=== PATIENT | female | born 1995 | race Caucasian/White ===

== ENCOUNTER 2018-03-22 09:21 | Emergency (ER) | payer MEDICAID, SELFPAY ==
[2018-03-22 09:22] VITALS: BP 142/78; PULSE 99; RESP 20; TEMP 36.4; O2SAT 100; BMI 38.0
--- NOTE | 2018-03-22 09:46 | EKG12_ITS ---
Test Reason : CHEST OTHER Blood Pressure : / mmHG Vent. Rate : 096 BPM Atrial Rate : 096 BPM P-R Int : 138 ms QRS Dur : 088 ms QT Int : 354 ms P-R-T Axes : 038 046 043 degrees QTc Int : 447 ms Normal sinus rhythm Normal ECG Confirmed by BECCA ARTHUR MD ([id number]), staff editor ELROY MORALES ([id number]) on 03/24/2018 4:03:22 PM Referred By: GENESIS Confirmed By:BECCA ARTHUR MD
--- NOTE | 2018-03-22 09:46 | RAD_ITS ---
STUDY: X-RAY CHEST REASON FOR EXAM: Female, 22 years old. Sharp onset of left-sided chest pain with deep breathing. TECHNIQUE: PA and lateral views of the chest. COMPARISON: None. FINDINGS: Mild elevation of the right hemidiaphragm. There is no demonstrated pleural abnormality. Normal size heart. Normal mediastinum and anay. Normal visualized pulmonary arteries. Normal visualized aortic arch and descending thoracic aorta. Normal visualized thoracic spine. Normal visualized ribs, clavicles, and shoulders. There is no demonstrated abnormality of the visualized soft tissue structures of the upper abdomen. RAD/Chest PA and Lateral IMPRESSION: Normal x-ray examination of the chest. Electronically Signed: Royal Clemens MD at 11:24 EST Tel [phone], Service support ,
--- NOTE | 2018-03-22 10:48 | ED.VISSUMM ---
- ER Visit Summary Date of Service: 03/22/18 Chief Complaint: Chest pain History of Present Illness: The patient is a 22 F who states she has had a left lower anterior chest wall pain for the past week and a half. She states that sharp and stabbing. It is worse with deep inspiration. When she breathes shallow she does not have any pain. She states that now it has started to hurt over the upper anterior chest. She denies any cough. No fevers. No rashes. She has a history of fibromyalgia, pseudotumor cerebri, and rheumatoid arthritis. She is on methotrexate and Humira. Physical Examination: Afebrile vital signs are stable Gen: Well-nourished well-developed Head: Normocephalic atraumatic Eyes: Perrl EOMI ENT: TMs clear no rhinorrhea moist mucous membranes Neck: Supple no lymphadenopathy no JVD nontender CVS: Regular rate rhythm no murmurs normal S1-S2 Respiratory: No distress clear to auscultation bilaterally left anterior lower chest wall is tender to palpation pain is worse with movement. Abdomen: Soft nontender nondistended normal bowel sounds no masses Back: Nontender Extremity: Nontender no edema Skin: Normal color no rash Neuro: alert orientated ?3 CN II-XII intact normal strength sensation reflexes gait cerebellar Psych: Normal affect normal mood Test Results: EKG normal sinus rhythm at a rate of 96. Chest x-ray is negative. D-dimer is significantly elevated. Troponin negative. CT Angelia of the chest shows a small left pleural effusion and nonocclusive pulmonary embolism on the right. Emergency Department Course and Treatment: I do not believe the patient needs to be admitted to the hospital. We will start her on Eliquis. She needs to follow-up with her doctors establish primary care. I will write for a few Marcellus for pain. Impression: 1. Pleuritic chest pain 2. Nonocclusive pulmonary artery embolism 3. Left pleural effusion This note was generated with [employer] dictation software. It may contain incorrect words, spelling, and punctuation that were not noted in review of the chart prior to signing ED Disposition - Plan for ED Patient: Disposition: Home or Assisted Living Chief Complaint: Chest Other Instructions: Pulmonary Embolism Prescriptions: Hydrocodone Bitart/Apap 5-325 [Marcellus 5MG-325MG] 1 tab PO Q6H PRN PRN 3 Days #10 tab PRN Reason: Pain Apixaban [Eliquis] 5 mg PO BID #74 tab Referrals: Prema Lechuga [Primary Care Provider] - As soon as possible
[2018-03-22 11:22] VITALS: BP 120/64; PULSE 90; RESP 14; O2SAT 99
[2018-03-22 11:43] VITALS: O2SAT 99
--- NOTE | 2018-03-22 11:52 | ED.RN ---
UNABLE TO OBTAIN IV, DR GRIFFIN AWARE. [facility] PT.
[2018-03-22 11:59] LABS: Erythrocyte Sedimentation Rate 21 mm/hr (0-20)
[2018-03-22 12:04] LABS: Absolute Lymphocyte Count 1.09 X10^3/ul (0.83-4.51); Basophil# 0.02 X10^3/uL; Basophil% 0.4 % (0-1); Eosinophil# 0.08 X10^3/uL; Eosinophils% 1.5 % (0-5); Hematocrit 37.7 % (37-47); Hemoglobin 12.9 g/dl (12.0-15.0); Lymphocyte # 1.09 X10^3/ul (4.0); Mean Corp Hgb Conc 34.2 g/gl (32-36); Mean Corpuscular Hgb 28.2 pg (27.0-32.0); Mean Corpuscular Volume 82.3 fL (81-99); Mean Platelet Vol. 9.2 fl (6.2-12.0); Monocyte# 0.29 X10^3/uL; Monocyte% 5.3 % (0-10); Neutrophil # 3.98 X10^3/uL (2.7-7.7); Neutrophil % 72.8 % (47-70); POSITIVE COUNT NO; POSITIVE DIFFERENTIAL NO; POSITIVE MORPHOLOGY NO; Platelet Count 315 K/mm3 (150-450); RBC Distribution Width CV 13.5 % (11.6-14.6); RBC Distribution Width SD 39.6 fl (35.1-43.9); Red Blood Count 4.58 M/mm3 (4.2-5.4); White Blood Count 5.5 K/mm3 (4.4-11.0)
[2018-03-22 12:05] LABS: Anion Gap 8 (5-15); BUN 9 mg/dL (7-18); BUN/Creat Ratio 11.5 RATIO (10-20); Calcium,Total 8.4 mg/dL (8.5-10.1); Chloride 114 mmol/L (98-107); Creatinine, Serum 0.78 mg/dL (0.55-1.02); D-Dimer Quantitative (DVT/PE) 1.93 FEU/ug/m (0.27-0.49); EST Glomerular Filtration Rate 96 mL/min (>60); Est Glom Filt Rate - Afr Amer 116 mL/min (>60); Estimated Creatinine Clearance 112.19 ml/min; Glucose 83 mg/dL (74-106); Potassium 3.8 mmol/L (3.5-5.1); Sodium Level 141 mmol/L (136-145)
--- NOTE | 2018-03-22 12:07 | ED.RN ---
DDIMER 1.93 AWARE.
--- NOTE | 2018-03-22 12:08 | CT_ITS ---
STUDY: CTA CHEST REASON FOR EXAM: Female, 22 years old. Chest pain. Elevated d-dimer. RADIATION DOSAGE (If Supplied By Facility): CTDIvol = ( 14.40 ) mGy, DLP = ( 585.60 ) mGycm TECHNIQUE: The examination was performed with the intravenous administration of 100ML ml of Isovue 370 contrast material. Post-processing of the angiographic images was performed, with multiplanar reformation and 3D reconstruction. Individualized dose optimization techniques were used for this CT. COMPARISON: Comparison is made with prior study dated September 30, 2016. FINDINGS: Small nonocclusive intraluminal filling defects are seen in branches of the right upper lobe pulmonary artery. This is in keeping with the pulmonary embolus. Normal thoracic aorta and visualized great vessels. There is no demonstrated aortic dissection. Normal heart and pericardium. Normal mediastinum. Normal hilar regions. Normal visualized trachea and bronchi. The lungs are well expanded. Small left pleural effusion with bibasilar atelectasis worse on the left side. Normal chest wall structures. Normal osseous structures. Normal visualized upper abdomen. CT/CTA Chest W/WO Contrast IMPRESSION: Small nonocclusive intraluminal filling defects seen in the branches of the right upper lobe pulmonary artery. Tiny left pleural effusion with underlying atelectasis. Electronically Signed: Royal Clemens MD at 14:09 EST Tel [phone], Service support ,
[2018-03-22 14:00] VITALS: BP 124/79; PULSE 101; RESP 22; O2SAT 96
[2018-03-22 14:37] VITALS: BP 124/79; PULSE 99; RESP 19
[2018-03-22] MEDS: APIXABAN 5 MG TABLET 10 MG PO (16:08)
[2018-03-22 16:09] VITALS: BP 130/70; PULSE 106; RESP 20; O2SAT 97
== END 2018-03-22 16:10 | disposition home or self-care (01) ==
PROVIDERS: Emergency Provider Emergency Medicine; Family Provider Family Medicine; PCP Family Medicine
DX: I26.99 Other pulmonary embolism without acute cor pulmonale (principal); J90 Pleural effusion, not elsewhere classified; G93.2 Benign intracranial hypertension; M79.7 Fibromyalgia; M06.9 Rheumatoid arthritis, unspecified; Z79.899 Other long term (current) drug therapy
CPT/HCPCS: 36415; 71046; 71275; 80048; 84484; 85025; 85379; 85652; 93005; 99285; Q9967; A4216

== ENCOUNTER 2018-03-26 13:26 | Emergency (ER) | payer MEDICAID, SELFPAY ==
[2018-03-26 13:28] VITALS: BP 124/74; PULSE 100; RESP 22; TEMP 36.4; O2SAT 100; BMI 41.9
[2018-03-26 13:40] VITALS: O2SAT 100
[2018-03-26 13:42] VITALS: O2SAT 96
--- NOTE | 2018-03-26 13:46 | CT_ITS ---
STUDY: CTA CHEST/THORAX REASON FOR EXAM: Female, 22 years old. Diagnosis of pulmonary embolus or days ago. Patient placed on blood thinner, now feeling worse. RADIATION DOSAGE (If Supplied By Facility): CTDIvol = ( 19.98 ) mGy, DLP = ( 584.34 ) mGycm TECHNIQUE: The examination was performed with the intravenous administration of 100CC ml of Isovue 370 contrast material. Post-processing of the angiographic images was performed, with multiplanar reformation and 3D reconstruction. Individualized dose optimization techniques were used for this CT. COMPARISON: None. FINDINGS: Normal enhancement of the main pulmonary artery and right and left pulmonary arteries. Normal enhancement of the bilateral peripheral pulmonary arteries. There is no demonstrated pulmonary embolism. The segmental vascular defects questioned from prior exam again noted on series 2 image 132 and series 6 on image 117. However, this also reflects an area plagued by beam hardening artifact, and may be a branch of the pulmonary vein rather than the pulmonary artery. Normal thoracic aorta and visualized great vessels. There is no demonstrated aortic dissection. Normal heart and pericardium. Ill-defined density in the anterior mediastinum is likely residual thymus. Normal hilar regions. Normal visualized trachea and bronchi. The lungs are well expanded. There is persistent airspace disease and probable atelectasis in the inferior left lower lobe. Infection not excluded. There is a stable small volume left sided pleural effusion. Normal chest wall structures. The patient is positioned with a 14 degree dextroscoliosis centered at T6-7, and there is mild left lateral wedging of the vertebra at this level. There are degenerative osteoarthritic changes of the bilateral shoulders. Normal visualized upper abdomen. CT/CTA Chest W/WO Contrast IMPRESSION: 1. Stable suggestion of segmental vascular defect in the right apex, although this is an area plagued by beam hardening artifact. Question also raised if this is a branch of the pulmonary vein rather than the pulmonary artery. No new pulmonary artery embolus. 2. Stable inferior left lower lobe atelectasis and small left pleural effusion. Infection not excluded. 3. Minor left lateral wedging of the T6 and T7 vertebra with mild mid thoracic dextroscoliosis. Electronically Signed: Zach Alejo MD at 15:31 EST , Service support ,
--- NOTE | 2018-03-26 13:46 | RAD_ITS ---
STUDY: X-RAY CHEST REASON FOR EXAM: Female, 22 years old. Recent diagnosis of PE. Increasing shortness of breath and pain. TECHNIQUE: Single AP portable view of the chest. COMPARISON: 03/22/2018. FINDINGS: Atelectasis or infiltrate seen in the left lower lobe. Possible small left pleural effusion. Right lung is clear. Normal size heart. Normal mediastinum and anay. Normal visualized pulmonary arteries. Normal visualized aortic arch and descending thoracic aorta. Normal visualized thoracic spine. Normal visualized ribs, clavicles, and shoulders. There is no demonstrated abnormality of the visualized soft tissue structures of the upper abdomen. RAD/Chest 1 View (Portable) IMPRESSION: Atelectasis or infiltrate seen in the left lower lobe. Possible small left pleural effusion. Electronically Signed: Olayinka Oconnell MD at 15:38 EST , Service support ,
--- NOTE | 2018-03-26 13:46 | EKG12_ITS ---
Test Reason : SOB Blood Pressure : / mmHG Vent. Rate : 096 BPM Atrial Rate : 096 BPM P-R Int : 132 ms QRS Dur : 100 ms QT Int : 358 ms P-R-T Axes : 036 036 034 degrees QTc Int : 452 ms Normal sinus rhythm Normal ECG Confirmed by BECCA ARTHUR MD ([id number]), market editor ELROY MORALES ([id number]) on 03/29/2018 1:02:00 PM Referred By: ESTELLA Confirmed By:BECCA ARTHUR MD
[2018-03-26 13:49] VITALS: O2SAT 100
[2018-03-26 14:23] LABS: Absolute Lymphocyte Count 1.11 X10^3/ul (0.83-4.51); Absolute Neutrophil Count 5.1 X10^3/uL (2.0-7.7); Basophil# 0.01 X10^3/uL; Basophil% 0.1 % (0-1); Eosinophil# 0.12 X10^3/uL; Eosinophils% 1.8 % (0-5); Hemoglobin 13.9 g/dl (12.0-15.0); Lymphocyte # 1.11 X10^3/ul (4.0); Lymphocyte % 16.4 % (19-41); Mean Corp Hgb Conc 33.1 g/gl (32-36); Mean Corpuscular Hgb 27.9 pg (27.0-32.0); Mean Corpuscular Volume 84.3 fL (81-99); Mean Platelet Vol. 8.8 fl (6.2-12.0); Monocyte# 0.46 X10^3/uL; Monocyte% 6.8 % (0-10); Neutrophil # 5.06 X10^3/uL (2.7-7.7); Neutrophil % 74.8 % (47-70); Platelet Count 302 K/mm3 (150-450); RBC Distribution Width CV 13.8 % (11.6-14.6); RBC Distribution Width SD 42.2 fl (35.1-43.9); Red Blood Count 4.98 M/mm3 (4.2-5.4); White Blood Count 6.8 K/mm3 (4.4-11.0)
[2018-03-26 14:26] LABS: POSITIVE COUNT NO; POSITIVE DIFFERENTIAL NO; POSITIVE MORPHOLOGY NO
[2018-03-26 14:30] LABS: Anion Gap 6 (5-15); BUN 8 mg/dL (7-18); BUN/Creat Ratio 10.4 RATIO (10-20); Calcium,Total 8.6 mg/dL (8.5-10.1); Chloride 111 mmol/L (98-107); Creatinine, Serum 0.77 mg/dL (0.55-1.02); EST Glomerular Filtration Rate 97 mL/min (>60); Est Glom Filt Rate - Afr Amer 118 mL/min (>60); Estimated Creatinine Clearance 113.65 ml/min; Glucose 96 mg/dL (74-106); Potassium 3.7 mmol/L (3.5-5.1); Sodium Level 139 mmol/L (136-145)
--- NOTE | 2018-03-26 15:52 | ED.VISSUMM ---
- ER Visit Summary Date of Service: 03/26/18 Chief Complaint: Chest discomfort History of Present Illness: The patient is a 22 F history of rheumatoid arthritis, fibromyalgia and pseudotumor cerebri. Patient was seen in the ER on Tuesday diagnosed with suspected pulmonary emboli and started on the blood thinner Eliquis. She states she feels worse. Having worsening discomfort and more trouble breathing. She denies any fever. Denies any hemoptysis. Denies any melena. No history of lung disease. Physical Examination: 21-year-old female no acute distress. She is anxious. Her vital signs are stable. Her pulse ox is 100% on room air no hypoxia. H EENT exam unremarkable. Neck nontender no lymphadenopathy. Lungs clear to auscultation bilaterally. Heart regular rhythm rate about 100 no murmur. Chest wall nontender. Abdomen soft nontender. Normal bowel sounds no peritoneal signs. Patient is moving all 4 extremities. They are neurovascularly intact. Equal symmetrical radial pulses. Calves are nontender without edema or cords. Neurologically she is awake alert with no focal motor deficits. Test Results: Chest x-ray shows a small left pleural effusion. CTA of her chest the radiologist read this study questions if there are PEs at all. He states that where they were called on the prior study that is often with a fine artifact. But he definitely does not see any new or worsening vomiting emboli. There is a small left pleural effusion. And minor wedging of T6 and T7. EKG is a sinus rhythm rate of 96. White count is 6. Hemoglobin is 13. Electrolytes unremarkable normal BUN and creatinine and gap. Emergency Department Course and Treatment: Patient was given a liter normal saline. On reevaluation of the patient at 1550 she is doing well. I did explain her some of this may be anxiety. I also explained her that I could not say with certainty that she ever actually had pulmonary emboli. The radiologist today was somewhat questioning the prior read. Treatment Plan: Discharged home. Continue on her anticoagulant. Tylenol for pain. Disposition: Discharge Impression: Acute dyspnea of uncertain etiology. Recently diagnosed with pulmonary emboli Anxiety This note was generated with [employer] dictation software. It may contain incorrect words, spelling, and punctuation that were not noted in review of the chart prior to signing ED Disposition - Plan for ED Patient: Chief Complaint: Shortness of Breath Referrals: Prema Lechuga [Primary Care Provider] -
--- NOTE | 2018-03-26 15:56 | ED.DEP ---
ED Disposition - Plan for ED Patient: Disposition: Home or Assisted Living Chief Complaint: Shortness of Breath Instructions: ED Dyspnea Shortness of Breath Referrals: Prema Lechuga [Primary Care Provider] - Additional Instructions: Motrin and/or Tylenol for pain. The radiologist to read her CAT scan of your chest today is questioning the prior diagnosis of pulmonary emboli. We will continue on the Eliquis at this time and you can follow-up your primary care physician she can determine if she wants to continue it or not.
[2018-03-26 16:06] VITALS: BP 125/74; PULSE 71; RESP 16; O2SAT 98
--- NOTE | 2018-03-26 16:29 | ED.RN ---
PT HANDED ME THE NORCO THAT SHE GOT FILLED FROM DR GRIFFIN. THERE WERE 7 PILLS LEFT IN THE BOTTLE THAT WERE PLACED IN THE RXDESTRYER BOTTLE REQUESTED BY THE PATIENT. THERE WERE 10 TOTAL PERSCRIBED AND ONLY 3 WERE USED.
== END 2018-03-26 16:08 | disposition home or self-care (01) ==
PROVIDERS: Emergency Provider Emergency Medicine; Family Provider Family Medicine; PCP Family Medicine
DX: R06.00 Dyspnea, unspecified (principal); J90 Pleural effusion, not elsewhere classified; G93.2 Benign intracranial hypertension; M06.9 Rheumatoid arthritis, unspecified; M79.7 Fibromyalgia; Z79.01 Long term (current) use of anticoagulants; Z79.899 Other long term (current) drug therapy
CPT/HCPCS: 71045; 71275; 80048; 85025; 93005; 96360; 96361; 99284; Q9967

== ENCOUNTER 2018-09-16 22:05 | Emergency (ER) | payer MEDICAID, SELFPAY ==
[2018-09-16 22:05] VITALS: BP 123/75; PULSE 105; RESP 16; TEMP 36.4; O2SAT 99; BMI 39.5
--- NOTE | 2018-09-16 22:31 | ED.RN ---
RN CALLED FOR EKG, PULLED OLD EKGS FOR
--- NOTE | 2018-09-16 22:38 | EKG12_ITS ---
Test Reason : CP Blood Pressure : / mmHG Vent. Rate : 095 BPM Atrial Rate : 095 BPM P-R Int : 128 ms QRS Dur : 100 ms QT Int : 354 ms P-R-T Axes : 030 036 033 degrees QTc Int : 444 ms Normal sinus rhythm Normal ECG Confirmed by DARCY ALAS ([id number]), story editor JABIER GALINDO ([id number]) on 09/18/2018 1:20:31 PM Referred By: CHRISSY Confirmed By:DARCY ALAS
--- NOTE | 2018-09-16 22:46 | RAD_ITS ---
STUDY: X-RAY CHEST REASON FOR EXAM: Female, 22 years old. Chest pain shortness of breath TECHNIQUE: Frontal and lateral views of the chest. COMPARISON: March 26, 2018 FINDINGS: Increased left pleural effusion with adjacent atelectasis/infiltrate. Low lung volumes are present. No pneumothorax. Right basilar atelectasis. Normal size heart. Normal mediastinum and anay. Normal visualized pulmonary arteries. Normal visualized aortic arch and descending thoracic aorta. Scoliotic curvature to the spine. Normal visualized ribs, clavicles, and shoulders. There is no demonstrated abnormality of the visualized soft tissue structures of the upper abdomen. RAD/Chest PA and Lateral IMPRESSION: Increased left pleural effusion with adjacent atelectasis/infiltrates. Right basilar atelectasis. Electronically Signed: Derrick He, at 23:46 EDT Tel , Service support ,
[2018-09-16 22:52] LABS: Absolute Lymphocyte Count 1.51 X10^3/ul (0.83-4.51); Absolute Neutrophil Count 3.4 X10^3/uL (2.0-7.7); Basophil# 0.01 X10^3/uL; Basophil% 0.2 % (0-1); Eosinophils% 6.8 % (0-5); Hematocrit 34.4 % (37-47); Hemoglobin 11.6 g/dl (12.0-15.0); Lymphocyte # 1.51 X10^3/ul (4.0); Lymphocyte % 25.8 % (19-41); Mean Corp Hgb Conc 33.7 g/gl (32-36); Mean Corpuscular Volume 80.2 fL (81-99); Mean Platelet Vol. 8.4 fl (6.2-12.0); Monocyte# 0.52 X10^3/uL; Monocyte% 8.9 % (0-10); Neutrophil # 3.41 X10^3/uL (2.7-7.7); Neutrophil % 58.1 % (47-70); Platelet Count 347 K/mm3 (150-450); RBC Distribution Width CV 13.2 % (11.6-14.6); RBC Distribution Width SD 38.4 fl (35.1-43.9); Red Blood Count 4.29 M/mm3 (4.2-5.4); White Blood Count 5.9 K/mm3 (4.4-11.0)
[2018-09-16 22:53] LABS: POSITIVE COUNT NO; POSITIVE DIFFERENTIAL NO; POSITIVE MORPHOLOGY NO
[2018-09-16 23:00] LABS: Anion Gap 6 (5-15); BUN 11 mg/dL (7-18); BUN/Creat Ratio 16.2 RATIO (10-20); Calcium,Total 8.4 mg/dL (8.5-10.1); Chloride 106 mmol/L (98-107); Creatinine, Serum 0.68 mg/dL (0.55-1.02); EST Glomerular Filtration Rate 112 mL/min (>60); Est Glom Filt Rate - Afr Amer 136 mL/min (>60); Estimated Creatinine Clearance 128.69 ml/min; Glucose 92 mg/dL (74-106); Potassium 3.6 mmol/L (3.5-5.1); Sodium Level 138 mmol/L (136-145)
--- NOTE | 2018-09-16 23:38 | CT_ITS ---
STUDY: CTA CHEST REASON FOR EXAM: Female, 22 years old. Chest pain RADIATION DOSAGE (If Supplied By Facility): CTDIvol = ( 10.23 ) mGy, DLP = ( 560.63 ) mGycm TECHNIQUE: The examination was performed with the intravenous administration of 100ML IV Isovue 370. Post-processing of the angiographic images was performed, with multiplanar reformation and 3D reconstruction. Individualized dose optimization techniques were used for this CT. COMPARISON: No MR 18 2017. FINDINGS: Normal enhancement of the main pulmonary artery and right and left pulmonary arteries. Normal enhancement of the bilateral peripheral pulmonary arteries. There is no demonstrated pulmonary embolism. Normal thoracic aorta and visualized great vessels. There is no demonstrated aortic dissection. The heart is within normal limits in size. There is a small pericardial effusion. Nonspecific subcentimeter short axis mediastinal and hilar lymph nodes. There is enlarged bilateral axillary lymph nodes measuring up to 1.5 cm in short axis. Appears increased from prior study. Clinical correlation is recommended. There is soft tissue attenuation within the anterior superior mediastinum similar to prior exam likely representing residual thymus. No pneumothorax identified. There is atelectasis/scarring. There is increased left pleural effusion now small to moderate with adjacent atelectasis/infiltrate. Right lower lobe atelectasis. Normal chest wall structures. There are degenerative changes of thoracic spine. Scoliotic curvature of the spine. Mild wedging T6-T7. There is splenomegaly present. Cholelithiasis. CT/CTA Chest W/WO Contrast IMPRESSION: No pulmonary embolism identified. No aortic aneurysm or dissection is seen. Increased left pleural effusion with adjacent atelectasis/infiltrate. Infectious process not excluded. Cholelithiasis. Splenomegaly. Scoliotic curvature to the spine. Bilateral axillary lymphadenopathy. This is slightly increased on the right. Nonspecific. Clinical correlation is recommended. Electronically Signed: Derrick He, at 0:51 EDT Tel , Service support ,
[2018-09-16 23:39] LABS: D-Dimer Quantitative (DVT/PE) 5.75 FEU/ug/m (0.27-0.49)
[2018-09-17 00:15] VITALS: BP 115/74; PULSE 92; RESP 18; O2SAT 96
--- NOTE | 2018-09-17 00:18 | ED.RN ---
PT WITH INCREASED SOB WHEN UP TO BATHROOM. INCREASED WORK OF BREATHING. PT ASSISTED BACK TO BED. MONITOR REPLACED. WILL CONTINUE TO MONITOR.
--- NOTE | 2018-09-17 01:01 | ED.DEP ---
ED Disposition - Plan for ED Patient: Instructions: ED Pneumonia Adult, ED Chest Pain NonCardiac Prescriptions: levoFLOXacin tablet [Levaquin] 500 mg PO DAILY #7 tab Referrals: Prema Lechuga [Primary Care Provider] - Alfred Torres MD [STAFF PHYSICIAN] -
[2018-09-17 01:53] VITALS: BP 120/71; PULSE 117; RESP 21; O2SAT 98
--- NOTE | 2018-09-17 01:54 | ED.RN ---
PT GIVEN WRITTEN AND VERBAL DISCHARGE INSTRUCTIONS AND HOME GOING PRESCRIPTIONS. PT VERBALIZES UNDERSTANDING. DR. LOWE INFORMED OF HR 117. REPORTS PT IS CLEARED FOR DISCHARGE AND SHOULD FOLLOW UP WITH DR. AGUILAR ON TUESDAY. IV D/C AND COVERED WITH 2X2 GAUZE AND PAPER TAPE. PT DENIES ANY FURTHER QUESTIONS.
--- NOTE | 2018-09-17 05:14 | ED.VISSUMM ---
- ER Visit Summary Date of Service: 09/17/18 Chief Complaint: Shortness of breath History of Present Illness: The patient is a 22 F who presents with chest pain shortness of breath. This really all began today. Her chest pain is on the right side, sharp in nature, worsened with inspiration. She states the pain comes all the way up along her neck along the top of her head into her forehead. She does have a history of pulmonary emboli and has been off anticoagulation for a few weeks. She denies fevers nausea or vomiting. She does complain of some nonproductive cough. She also has a history of rheumatoid arthritis fibromyalgia and pseudotumor cerebri. Physical Examination: Initial heart rate 105 vitals otherwise unremarkable Patient resting comfortably no distress Patient does have reproducible paraspinal neck pain as well as right-sided chest tenderness, no rash Abdomen soft nontender Heart regular rate and rhythm Lungs are clear without rales rhonchi wheezing Test Results: EKG shows normal sinus rhythm at a rate of 95. CBC BMP unremarkable. D-dimer is elevated at 5.75. Chest x-ray shows increased left effusion from last x-ray of March of last year. There is associated atelectasis or infiltrate. CTA of the chest shows no evidence of pulmonary embolism or dissection there is increased left pleural effusion with adjacent infiltrate or atelectasis. Emergency Department Course and Treatment: Work-up as above. Patient is actually had a effusion noted on prior imaging but this has increased in size. This is actually opposite of where pain is. I am not sure that this is related to her current presentation. She does not have a pulmonary embolism or dissection. Given that she does complain of some cough and there is possible infiltrate we we will treat with oral antibiotics. Patient was referred to pulmonology and advised to follow-up as an outpatient. She understands to return for new or worsening symptoms. All questions answered bedside. Patient discharged. Treatment Plan: [] Disposition: Discharge Impression: Community-acquired pneumonia Chest pain This note was generated with [employer] dictation software. It may contain incorrect words, spelling, and punctuation that were not noted in review of the chart prior to signing ED Disposition - Plan for ED Patient: Disposition: Home or Assisted Living Instructions: ED Chest Pain NonCardiac, ED Pneumonia Adult Prescriptions: levoFLOXacin tablet [Levaquin] 500 mg PO DAILY #7 tab Referrals: Alfred Torres MD [STAFF PHYSICIAN] - Prema Lechuga [Primary Care Provider] -
== END 2018-09-17 01:56 | disposition home or self-care (01) ==
LOC: ED 22:39
PROVIDERS: Emergency Provider Emergency Medicine; Family Provider Family Medicine; PCP Family Medicine
DX: J18.9 Pneumonia, unspecified organism (principal); M06.9 Rheumatoid arthritis, unspecified; M79.7 Fibromyalgia; M54.2 Cervicalgia; Z79.899 Other long term (current) drug therapy; Z86.711 Personal history of pulmonary embolism
CPT/HCPCS: 71046; 71275; 80048; 85025; 85379; 93005; 99283; Q9967; A4216

== ENCOUNTER 2019-03-19 11:46 | Emergency (ER) | payer MEDICAID, SELFPAY ==
[2019-03-19 11:47] VITALS: BP 123/72; PULSE 96; RESP 20; TEMP 36.6; O2SAT 100; BMI 40.1
--- NOTE | 2019-03-19 12:05 | ED.DCSUM_ITS ---
- ER Visit Summary Date of Service: 03/19/19 Chief Complaint: Cough History of Present Illness: The patient is a 23 F who complains of cough, nasal congestion. Is been ongoing for 3 days. Her cough is productive of sputum. She said a lot of nasal congestion. She has pain in the left lower rib area. She does have a history of pneumonia last year. She denies fevers. She is currently 13 weeks gestation. Denies any abdominal pain or any issues with this. Physical Examination: Vital signs reviewed. HEENT exam shows a sinus congestion. TMs are clear bilaterally.. Heart is regular rate and rhythm without murmurs. Lungs are clear to auscultation. Abdomen is soft and nonten carlos. Extremities reveal no edema. Skin exam normal. Neurologic exam normal. Test Results: None performed Emergency Department Course and Treatment: I will go ahead and treat the patient with antibiotics due to her history. We will not subject her to any radiation due to her . Patient will be given Augmentin. She will need to follow-up with her [employer] and PCP. Treatment Plan: [] Disposition: Discharge Impression: Acute bronchitis This note was generated with [employer] dictation software. It may contain incorrect words, spelling, and punctuation that were not noted in review of the chart prior to signing ED Disposition - Plan for ED Patient: Referrals: Prema Lechuga [Primary Care Provider] -
--- NOTE | 2019-03-19 12:07 | ED.DEP ---
ED Disposition - Plan for ED Patient: Disposition: Home or Assisted Living Instructions: BRONCHITIS, Antiobiotic Treatment (Adult) Prescriptions: Amox/Clavulanate Tablet [Augmentin Tablet] 875 mg PO Q12H #14 tab Prescription Printed Referrals: Prema Lechuga [Primary Care Provider] -
== END 2019-03-19 12:24 | disposition home or self-care (01) ==
LOC: ED 12:10
PROVIDERS: Emergency Provider Emergency Medicine; Family Provider Family Medicine; PCP Family Medicine
DX: O99.511 Diseases of the respiratory system complicating pregnancy, first trimester (principal); J20.9 Acute bronchitis, unspecified; M06.9 Rheumatoid arthritis, unspecified; M79.7 Fibromyalgia; Z79.899 Other long term (current) drug therapy; Z87.01 Personal history of pneumonia (recurrent); Z3A.13 13 weeks gestation of pregnancy
CPT/HCPCS: 99282

== ENCOUNTER 2019-04-16 12:28 | Emergency (ER) | payer MEDICAID, SELFPAY ==
[2019-04-16 12:29] VITALS: BP 125/78; PULSE 116; RESP 15; TEMP 36.8; O2SAT 99; BMI 41.0
--- NOTE | 2019-04-16 12:57 | RAD_ITS ---
STUDY: X-RAY CHEST REASON FOR EXAM: Female, 23 years old. Cough. The patient is . The patient was shielded appropriately. TECHNIQUE: PA and lateral views of the chest. COMPARISON: None. FINDINGS: The lungs are clear and expanded. Scattered calcified granuloma. There is no demonstrated pleural abnormality. Normal size heart. Normal mediastinum and anay. Normal visualized pulmonary arteries. Normal visualized aortic arch and descending thoracic aorta. Normal visualized thoracic spine. Normal visualized ribs, clavicles, and shoulders. There is no demonstrated abnormality of the visualized soft tissue structures of the upper abdomen. RAD/Chest PA and Lateral IMPRESSION: Normal x-ray examination of the chest. Electronically Signed: Royal Clemens, at 14:04 EST , Service support ,
--- NOTE | 2019-04-16 13:02 | ED.VIS.GEN ---
History of Present Illness Chief Complaint: Cough Informant: Patient Onset: Yesterday Current Severity: Mild Narrative: Cough yesterday second trimester she has rheumatoid arthritis she is on Humira and Plaquenil she indicates she has a dry harsh intermittent cough since yesterday the cough makes it hard for her to take her oral medications which she has been able to take she is eating and drinking her is uncomplicated no abdominal pain vaginal bleeding or discharge, she is concerned she has pneumonia Indicates she had a cough about a month ago work-up was unremarkable, it was decided to put her on antibiotics she felt the antibiotics made her have vomiting so she stopped them and never completed the antibiotics but the cough resolved, she is has no history of [place] PE DVT COPD or cardiopulmonary disorder Past Medical History - Allergies and Home Meds Allergies/Adverse Reactions: Allergies morphine Allergy (Verified 04/16/19 12:32) Hives metronidazole [From Flagyl] Adverse Reaction (Verified 04/16/19 12:32) Hives Primary Care Physician: Prema Lechuga [Primary Care Provider] - Past Medical History: - - As above second trimester rheumatoid arthritis on huermeraand Plaquenil, please note the Humira and Plaquenil have never caused her to be prone to infection or pneumonia Smoking Status: Never smoker - Family History Paternal Family History: Reports: No pertinent history Review of Systems General: Denies: Chills, Fever, Sweats Eyes: Denies: Visual changes - bilaterally, Diplopia ENT: Denies: Rhinorrhea, Sore throat Cardiovascular: Denies: Chest pain, Palpitations Respiratory: Reports: Cough. Denies: Dyspnea, Dyspnea on exertion Gastrointestinal: Denies: Abdominal pain, Nausea, Vomiting, Diarrhea, Melena, Hematochezia Genitourinary: Denies: Dysuria, Hematuria, Frequency Musculoskeletal: Denies: Back pain, Extremity Pain Skin: Denies: Rash, Wounds Neurological: Denies: Headache, Weakness, Numbness Physical Exam Vital Signs/Narrative: Vital Signs Temp Pulse Resp BP Pulse Ox 04/16/19 12:29 98.3 F 116 H 15 125/78 H 99 General: Well nourished, Well developed, No Acute Distress Head: Normocephalic, Atraumatic Eyes: Perrl, EOMI ENT: Moist mucous membranes, No rhinorrhea Neck: Supple, Nontender Cardiovascular: Regular rate, Regular rhythm, No murmurs Respiratory: No distress, CTA bilaterally, Chest nontender, - - She has a completely unremarkable physical exam she has a dry cough here her nose is clear her abdomen soft nontender the rest of her exam is unremarkable her vital signs are normal afebrile and pulse ox is within normal range Abdomen: Soft, Nontender, Nondistended, Normal bowel sounds Back: Nontender, Normal Inspection Extremities: Nontender, No edema Skin: Normal color, No rash Neurological: Alert, Oriented x3, Cranial nerves II-XII grossly intact, Normal Strength, Normal Sensation Psychological: Normal affect, Normal Mood Diagnostic/Tx/Re-eval - Medical Decision Making Patient does have a cough that began yesterday she indicates she had the cough over a month ago she was started on antibiotics that complicate her ability to take her other oral meds, her is otherwise uncomplicated she has had no abdominal pain vaginal bleeding or discharge she is eating and drinking she is able to take her medicines currently she is taking ice chips without difficulty she indicates there is really no therapy that is ever helped control the cough as when she takes even cough syrup she feels that causes her to have an upset stomach As this time will obtain chest x-ray aerosol The chest x-ray per radiology radiology is unremarkable, she has been taking ice chips without difficulty, I explained the above test results to her at this time given all of the above she is concerned about pneumonia at this time she was started on an inhaler I will give her a Z-Joseph to use in 24 as if she is improved but explained her she needs follow-up with her outpatient providers to help to manage all of the above in addition she voices concern that last month when she was given antibiotic complicated her ability to take oral meds and I asked her to discuss this further with her outpatient providers and she will do so Home stable Impression final cough, second trimester , Humira therapy for arthritis, patient concern for pneumonia ED Disposition - Plan for ED Patient: Diagnosis: Cough Instructions: BRONCHITIS with Wheezing (Adult), PNEUMONIA (Adult) Prescriptions: Azithromycin 250 mg PO DAILY #7 tab Prescription Printed Albuterol Inhaler [Ventolin Hfa] 1 - 2 puff INHALATION Q4H PRN PRN #1 inhaler PRN Reason: Wheezing Prescription Printed Ondansetron [Zofran Odt] 4 mg PO Q8H PRN PRN #10 tab PRN Reason: Nausea Prescription Printed Referrals: Prema Lechuga [Primary Care Provider] -
[2019-04-16] MEDS: Albuterol 2.5 MG/3 ML VIAL.NEB. INHALATION (13:11)
[2019-04-16 13:15] VITALS: PULSE 120; RESP 20
[2019-04-16 14:35] VITALS: RESP 16
== END 2019-04-16 14:45 | disposition home or self-care (01) ==
LOC: ED 13:16
PROVIDERS: Emergency Provider Emergency Medicine; Family Provider Family Medicine; PCP Family Medicine
DX: O26.892 Other specified pregnancy related conditions, second trimester (principal); R05 Cough; M06.9 Rheumatoid arthritis, unspecified; Z79.01 Long term (current) use of anticoagulants; Z79.899 Other long term (current) drug therapy; Z88.1 Allergy status to other antibiotic agents; Z88.5 Allergy status to narcotic agent; Z3A.00 Weeks of gestation of pregnancy not specified
CPT/HCPCS: 71046; 94640; 99282

== ENCOUNTER 2019-08-27 13:45 | Outpatient (CLI) | payer MEDICAID, SELFPAY ==
[2019-08-27] VITALS (9 sets, daily range): BP systolic 122–141; BP diastolic 69–88; PULSE 79–93; TEMP 37.1; BMI 46.2
[2019-08-27 15:17] LABS: Hematocrit 32.8 % (37-47); Hemoglobin 11.2 g/dL (12.0-15.0); Mean Corp Hgb Conc 34.1 g/dL (32-36); Mean Corpuscular Hgb 28.5 pg (27.0-32.0); Mean Corpuscular Volume 83.5 fL (81-99); Mean Platelet Vol. 10.3 fl (6.2-12.0); Platelet Count 242 K/mm3 (150-450); RBC Distribution Width CV 12.8 % (11.6-14.6); RBC Distribution Width SD 38.7 fl (35.1-43.9); Red Blood Count 3.93 M/mm3 (4.2-5.4); White Blood Count 8.2 K/mm3 (4.4-11.0)
[2019-08-27 15:28] LABS: International Normalized Ratio 0.9; Prothrombin Time (Protime)PT. 12.1 SECONDS (11.7-14.9)
[2019-08-27 15:29] LABS: Partial Thromboplast Time 26.6 Seconds (24.1-36.2)
[2019-08-27 15:31] LABS: AST(SGOT) 17 U/L (15-37); Alanine Aminotransfer ALT/SGPT 20 U/L (13-56); EST Glomerular Filtration Rate 127 mL/min (>60); Est Glom Filt Rate - Afr Amer 154 mL/min (>60); Estimated Creatinine Clearance 149.79 ml/min; Uric Acid 5.1 mg/dL (2.6-6.0)
--- NOTE | 2019-08-27 16:14 | OB.TRI.NOTE ---
History of Present Illness Date of Service: 08/27/19 Was patient seen by the physician?: Yes Reason For Visit: R/O LABOR Date of Service: 08/27/19 Final BERTA: 09/23/19 Gestational age: 36 Weeks and 1 Days Allergies morphine Allergy (Verified 04/16/19 12:32) Hives metronidazole [From Flagyl] Adverse Reaction (Verified 04/16/19 12:32) Hives Laboratory Studies: Laboratory Tests 08/27/19 08/27/19 08/27/19 Range/Units 15:15 15:15 15:15 WBC 8.2 (4.4-11.0) K/mm3 RBC 3.93 L (4.2-5.4) M/mm3 Hgb 11.2 L (12.0-15.0) g/dL Hct 32.8 L (37-47) % MCV 83.5 (81-99) fL MCH 28.5 (27.0-32.0) pg MCHC 34.1 (32-36) g/dL RDW Std Deviation 38.7 (35.1-43.9) fl RDW Coeff of Paula 12.8 (11.6-14.6) % Plt Count 242 (150-450) K/mm3 MPV 10.3 (6.2-12.0) fl PT 12.1 (11.7-14.9) SECONDS INR 0.9 APTT 26.6 (24.1-36.2) Seconds Creatinine 0.60 (0.55-1.02) mg/dL Estim Creat Clear Calc 149.79 ml/min Est GFR (MDRD) Af Amer 154 (>60) mL/min Est GFR (MDRD) Non-Af 127 (>60) mL/min Uric Acid 5.1 (2.6-6.0) mg/dL AST 17 (15-37) U/L ALT 20 (13-56) U/L Physical Exam Vitals: Vital Signs Pulse BP 79 131/75 H 08/27/19 15:56 08/27/19 15:56 NST - FHR Rate Baby A Baseline: 145 Variability:: Moderate Accelerations:: 15 x 15 Decelerations:: Variable NST Reactive:: Yes Uterine Activity:: Irregular Impression/Plan Reactive NST for elevated BP in
[2019-08-27 16:33] LABS: Protein:Creat Ratio 1155 mg/g CRE (0-200)
[2019-08-27 17:01] LABS: Group B Strep DNA By PCR Negative (Negative); Internal Control PASS; Probe Check PASS; Specimen Processing Control PASS
== END 2019-08-27 16:15 | disposition home or self-care (01) ==
LOC: WPOUT 13:58 → OBT 13:59
PROVIDERS: PCP Family Medicine; Referring Provider Obstetrics & Gynecology; Visit Provider Obstetrics & Gynecology
DX: O36.8330 Maternal care for abnormalities of the fetal heart rate or rhythm, third trimester, not applicable or unspecified (principal); R03.0 Elevated blood-pressure reading, without diagnosis of hypertension; Z3A.36 36 weeks gestation of pregnancy
CPT/HCPCS: 36415; 59025; 59050; 82565; 82570; 84156; 84450; 84460; 84550; 85027; 85610; 85730; 87081; 87653; 99218; G0378

== ENCOUNTER 2019-08-30 12:00 | Outpatient (CLI) | payer MEDICAID, SELFPAY ==
[2019-08-27 14:20] VITALS: BMI 46.2
[2019-08-30] VITALS (7 sets, daily range): BP systolic 122–138; BP diastolic 76–87; PULSE 80–90; TEMP 36.4; O2SAT 98; BMI 47.4
[2019-08-30 13:06] LABS: Hematocrit 33.3 % (37-47); Hemoglobin 11.3 g/dL (12.0-15.0); Mean Corp Hgb Conc 33.9 g/dL (32-36); Mean Corpuscular Hgb 28.3 pg (27.0-32.0); Mean Corpuscular Volume 83.3 fL (81-99); Mean Platelet Vol. 10.6 fl (6.2-12.0); Platelet Count 287 K/mm3 (150-450); RBC Distribution Width CV 12.8 % (11.6-14.6); RBC Distribution Width SD 38.4 fl (35.1-43.9); White Blood Count 10.2 K/mm3 (4.4-11.0)
[2019-08-30 13:16] LABS: Protein:Creat Ratio 1216 mg/g CRE (0-200)
[2019-08-30 13:20] LABS: AST(SGOT) 16 U/L (15-37); Alanine Aminotransfer ALT/SGPT 18 U/L (13-56); Creatinine, Serum 0.61 mg/dL (0.55-1.02); EST Glomerular Filtration Rate 126 mL/min (>60); Est Glom Filt Rate - Afr Amer 152 mL/min (>60); Estimated Creatinine Clearance 142.22 ml/min; Prothrombin Time (Protime)PT. 12.1 SECONDS (11.7-14.9); Uric Acid 5.2 mg/dL (2.6-6.0)
[2019-08-30 13:21] LABS: Partial Thromboplast Time 25.7 Seconds (24.1-36.2)
--- NOTE | 2019-08-30 14:01 | OB.TRI.NOTE ---
History of Present Illness Date of Service: 08/30/19 Was patient seen by the physician?: Yes Reason For Visit: R/O PRE E Date of Service: 08/30/19 Final BERTA: 09/23/19 Gestational age: 36 Weeks and 4 Days History of Present Illness: Patient presents from office. She reported some RUQ at her visit but states it has resolved. Patient thinks it was gas pains. She denies headaches or blurry vistion. Patient is checking her BP's at home & reports them as 140's/90's. Allergies morphine Allergy (Verified 04/16/19 12:32) Hives metronidazole [From Flagyl] Adverse Reaction (Verified 04/16/19 12:32) Hives Laboratory Studies: Laboratory Tests 08/30/19 08/30/19 08/30/19 Range/Units 12:50 12:50 12:50 WBC (4.4-11.0) K/mm3 RBC (4.2-5.4) M/mm3 Hgb (12.0-15.0) g/dL Hct (37-47) % MCV (81-99) fL MCH (27.0-32.0) pg MCHC (32-36) g/dL RDW Std Deviation (35.1-43.9) fl RDW Coeff of Paula (11.6-14.6) % Plt Count (150-450) K/mm3 MPV (6.2-12.0) fl PT 12.1 (11.7-14.9) SECONDS INR 1.0 APTT 25.7 (24.1-36.2) Seconds Creatinine 0.61 (0.55-1.02) mg/dL Estim Creat Clear Calc 142.22 ml/min Est GFR (MDRD) Af Amer 152 (>60) mL/min Est GFR (MDRD) Non-Af 126 (>60) mL/min Uric Acid 5.2 (2.6-6.0) mg/dL AST 16 (15-37) U/L ALT 18 (13-56) U/L U Random Total Protein 112.0 H (<11.9) mg/dL Urine Creatinine 92.10 (NO RANGE EST.) mg/dL Protein/Creatinin Ratio 1216 H (0-200) mg/g CRE 04/23/20 Range/Units 12:50 WBC 10.2 (4.4-11.0) K/mm3 RBC 4.00 L (4.2-5.4) M/mm3 Hgb 11.3 L (12.0-15.0) g/dL Hct 33.3 L (37-47) % MCV 83.3 (81-99) fL MCH 28.3 (27.0-32.0) pg MCHC 33.9 (32-36) g/dL RDW Std Deviation 38.4 (35.1-43.9) fl RDW Coeff of Paula 12.8 (11.6-14.6) % Plt Count 287 (150-450) K/mm3 MPV 10.6 (6.2-12.0) fl PT (11.7-14.9) SECONDS INR APTT (24.1-36.2) Seconds Creatinine (0.55-1.02) mg/dL Estim Creat Clear Calc ml/min Est GFR (MDRD) Af Amer (>60) mL/min Est GFR (MDRD) Non-Af (>60) mL/min Uric Acid (2.6-6.0) mg/dL AST (15-37) U/L ALT (13-56) U/L U Random Total Protein (<11.9) mg/dL Urine Creatinine (NO RANGE EST.) mg/dL Protein/Creatinin Ratio (0-200) mg/g CRE Physical Exam Vitals: Vital Signs Temp Pulse BP Pulse Ox 97.6 F L 83 130/84 H 98 08/30/19 12:17 08/30/19 13:20 08/30/19 13:20 08/30/19 12:17 General: Alert, Oriented x3 Abdomen: Soft, Non Tender, Non-Distended, Gravid Extremities:: Other - pitting edema Neurological: Cranial nerves II-XII grossly intact NST - FHR Rate Baby A Baseline: 130 Variability:: Moderate Accelerations:: 15 x 15 NST Reactive:: Yes Uterine Activity:: quiet Impression/Plan 23yo female at 36&4 RUQ pain has resolved. Her BP's here are normal but she has mildly elevated BP's at home & in the office. Labs reviewed (normal other then elevated urine protein). Thus the patient has pre-eclampsia. No evidence of severe so will proceed with repeat at 37 weeks. PreE & BP precautions reviewed. Patient agrees with plan
== END 2019-08-30 12:50 | disposition home or self-care (01) ==
LOC: WPOUT 12:16 → WP 12:17
PROVIDERS: Referring Provider Obstetrics & Gynecology; Visit Provider Obstetrics & Gynecology
DX: O14.03 Mild to moderate pre-eclampsia, third trimester (principal); Z3A.36 36 weeks gestation of pregnancy
CPT/HCPCS: 36415; 59025; 59050; 82565; 82570; 84156; 84450; 84460; 84550; 85027; 85610; 85730; 99218; G0378

== ENCOUNTER 2019-09-03 05:15 | Inpatient (IN) | payer MEDICAID, SELFPAY ==
[2019-08-30 12:17] VITALS: BMI 47.4
[2019-09-03] VITALS (14 sets, daily range): BP systolic 125–145; BP diastolic 72–87; PULSE 61–80; RESP 12–21; TEMP 36.4–36.9; O2SAT 96–100; BMI 47.5
[2019-09-03] MEDS: Lactated Ringers 1,000 ML 999 ML IV (05:35)
[2019-09-03 05:54] LABS: Absolute Lymphocyte Count 2.03 X10^3/uL (0.83-4.51); Absolute Neutrophil Count 6.6 X10^3/uL (2.0-7.7); Basophil# 0.02 X10^3/uL; Basophil% 0.2 % (0-1); Eosinophil# 0.07 X10^3/uL; Eosinophils% 0.8 % (0-5); Hematocrit 33.5 % (37-47); Hemoglobin 11.5 g/dL (12.0-15.0); Lymphocyte # 2.03 X10^3/ul (4.0); Lymphocyte % 21.9 % (19-41); Mean Corp Hgb Conc 34.3 g/dL (32-36); Mean Corpuscular Hgb 28.5 pg (27.0-32.0); Mean Corpuscular Volume 82.9 fL (81-99); Mean Platelet Vol. 10.4 fl (6.2-12.0); Monocyte# 0.58 X10^3/uL; Monocyte% 6.2 % (0-10); NRBC Flagged by Analyzer 0 % (0-5); Neutrophil # 6.56 X10^3/uL (2.7-7.7); Neutrophil % 70.6 % (47-70); Platelet Count 275 K/mm3 (150-450); RBC Distribution Width CV 12.7 % (11.6-14.6); RBC Distribution Width SD 38.8 fl (35.1-43.9); Red Blood Count 4.04 M/mm3 (4.2-5.4); White Blood Count 9.3 K/mm3 (4.4-11.0)
[2019-09-03] MEDS: Lactated Ringers 1,000 ML 150 ML IV (06:36)
[2019-09-03] MEDS: Sodium Citrate/Citric Acid 30 ML UDC PO (07:06)
--- NOTE | 2019-09-03 07:07 | PCM.HP.OB ---
- Problem List (1) 37 weeks gestation of Status: Acute (2) Preeclampsia Status: Acute (3) History of DVT (deep vein thrombosis) Status: Acute (4) Migraines Status: Acute (5) Rheumatoid arthritis Status: Acute (6) Idiopathic intracranial hypertension Status: Acute (7) BMI 40.0-44.9, adult Status: Chronic History Date of Admission: 03/18/16 Final BERTA: 09/23/19 Gestational age: 37 Weeks and 1 Days History of this : This is a 23 year-old, G 2, P 1, at 37 weeks gestational age who presents for scheduled C/S for preeclampsia. Allergies morphine Allergy (Verified 09/03/19 06:14) Hives metronidazole [From Flagyl] Adverse Reaction (Verified 09/03/19 06:14) Hives Home Medications: Home Medications Adalimumab [Humira] 40 mg UD 09/30/16 Hydroxychloroquine [Plaquenil] 200 mg PO BID 03/22/18 Enoxaparin Sodium [Lovenox] 40 mg SQ DAILY 03/19/19 Vit B Comp C 19/Folic Acid/D3 [Nephronex-Sl Tablet] 1 ea PO DAILY PRN 03/19/19 Albuterol Inhaler [Ventolin Hfa] 1 - 2 puff INHALATION Q4H PRN PRN #1 inhaler 04/16/19 Ferrous Sulfate [Iron] 140 mg PO DAILY 08/30/19 Folic Acid 1 mg PO DAILY 09/03/19 Magnesium Oxide 400 mg PO PRN PRN 09/03/19 Metoclopramide [Reglan] 10 mg PO PRN PRN 09/03/19 Smoking Status: Never smoker Number of Fetus(es): 1 NST - FHR Rate Baby A NST Reactive:: Yes FHR Category:: Category I History Past Pregnancies: Past Pregnancies Delivery Date Name GA/ Weeks Outcome Route Wt Sex Labor Length Anesthesia Delivery Location Provider FOB Labs: See [facility] record Physical Exam General: Alert, No apparent distress HEENT: Atraumatic Lungs: Normal air movement Abdomen: Soft, Non Tender, Gravid Neurological: Neuro grossly intact Assessment/Plan All Active Problems 37 weeks gestation of (Acute) Preeclampsia (Acute) History of DVT (deep vein thrombosis) (Acute) Migraines (Acute) Rheumatoid arthritis (Acute) Idiopathic intracranial hypertension (Acute) Epiploic appendagitis (Acute) Abdominal pain (Acute) Colitis (Acute) Rheumatoid arthritis (Acute) This is a 23 year-old, who presents at 37 weeks for scheduled section preeclampsia. - Preeclampsia: She denies any symptoms of pre-e and BP's have been mild range. Discussed when mag gtt would be indicated - H/o DVT: Last took Lovenox 24 hrs ago - Routine intrapartum care - Reviewed r/b/a of section and pt desires to proceed with surgery. Consent signed
[2019-09-03] MEDS: Oxytocin 30 units/NS 500 ml 30 UNITS/500 ML IV.SOLN 167 UNITS IV (08:50)
--- NOTE | 2019-09-03 08:57 | PCM.OPRPT ---
Problem List (1) 37 weeks gestation of Status: Acute (2) Preeclampsia Status: Acute (3) History of DVT (deep vein thrombosis) Status: Acute (4) Migraines Status: Acute (5) Rheumatoid arthritis Status: Acute (6) Idiopathic intracranial hypertension Status: Acute (7) BMI 40.0-44.9, adult Status: Chronic Report of Operation Date of Procedure: 09/03/19 Pre-Operative Diagnosis: 37 week gestation, history of prior section, preeclampsia, obesity, history of DVT, desires repeat section Post-Operative Diagnosis: As above Surgery/Procedure Performed:: RLTCS via pfannenstiel incision Description of Surgical Findings:: Significant adhesive disease noted. Fascia was densely adherent to the rectus muscles. The rectus muscles were adhered in the midline. The rectus muscles were adhered to the peritoneum. The bladder was adhered to the middle of the anterior uterus. Significant bladder adhesions noted. Normal-appearing uterus, bilateral tubes, bilateral ovaries. Viable female infant in vertex presentation. Clear fluid. Intact and normal-appearing placenta with a three-vessel cord. Type of Anesthesia:: Spinal Special Medications: None Specimen's removed: Placenta Drains: Castro Estimated Blood Loss (mL): 900 Fluids Replaced: 1000 Description of Procedure: Patient was taken to the operating room where spinal anesthesia was found to be adequate. She was prepped and draped in the dorsal position with a leftward tilt. She was prepped and draped in the usual sterile fashion. A Pfannenstiel skin incision was made along the prior incision. This incision was carried through subcutaneous space down to the underlying layer of fascia. The fascia was incised in the midline. The fascia was extended laterally using Soria scissors, and the fascia was noted to be densely adhered to the rectus muscles. The fascia was then dissected off of the rectus muscles, and again thick adhesions were noted. Rectus his muscles were densely adhered in the midline. A Taylor was used, as well as blunt dissection, to separate the rectus muscles in the midline. The peritoneum was entered bluntly with good visualization of the bladder. Blunt dissection was used to extend the incision. The bladder was noted to be significantly adhered to the anterior uterus to the level of the mid uterus. Sharp dissection was used to dissect the bladder off the uterus. A low transverse incision was made on the uterus. Clear fluid was noted. A viable female infant was delivered in vertex presentation without any force or delay. The cord was clamped and cut after a 60 sec delay and the baby was handed off to the nursery staff. The uterus was exteriorized. The placenta was manually extracted. The uterus was cleared of all clot and debris. The hysterotomy was closed in a running locked layer. Several additional [id number] sutures were placed to achieve hemostasis along the hysterotomy. Uterus was then placed back in the abdomen. Hemostasis was again noted. Salina was placed over the hysterotomy. This muscles were examined and noted to be hemostatic. The fascia was then closed in a running layer. Subcutaneous space was irrigated and made hemostatic with Bovie cautery. The subcutaneous space was reapproximated in a running fashion. The skin was closed in a subcuticular fashion with suture. A dressing was placed. Instrument and sponge counts were correct. The patient was taken to recovery room in stable condition. Grafts/Implants Used: None - Complications None - Admit VTE Documentation VTE Present on Admission: No VTE Mechan Device Prophylaxis: SCD's VTE Pharm Prophylaxis ordered?: Yes Delivery Classification: Scheduled Final BERTA: 09/23/19 Gestational age: 37 Weeks and 1 Days Indications for : Repeat Elective , - - Preeclampsia Amniotic Membrane Rupture Type: Artificial Amniotic Fluid Description: Clear Drain: Castro to straight drain Cord Entanglement: Around neck x 1, loose Nuchal Cord Compression: Without compression Cord Vessel Description: 3 Vessels Gender: Female Antibiotic Given: Ancef 3 grams IV x1 Pt instructed on risks of surgery: Bleeding, Infection, Need for Future C-Sections, Injury to surrounding structure(s) including bowel and bladder Complications: None - Admit VTE Documentation VTE Present on Admission: No VTE Mechan Device Prophylaxis: SCD's VTE Pharm Prophylaxis ordered?: Yes
[2019-09-03] MEDS: HYDROmorphone 1 MG/ML Syringe IV (09:44)
[2019-09-03] MEDS: Methylergonovine 0.2 MG/ML Ampul IM (10:12)
[2019-09-03] MEDS: oxyCODONE 5 MG Tablet PO ×3 (12:20→20:39)
[2019-09-03] MEDS: Lactated Ringers 1,000 ML 100 ML IV (12:22)
[2019-09-03] MEDS: Ketorolac 30 MG/ML Syringe IV ×2 (14:56→20:36)
--- NOTE | 2019-09-03 17:37 | NURSING ---
pt given incentive spirometer and instruction provided. pt verbalized understanding
[2019-09-03] MEDS: 0.9% Saline Lock 10 ML Syringe IV (20:36)
[2019-09-03] MEDS: Enoxaparin 40 MG/0.4 ML Syringe SC (20:37)
[2019-09-04 00:42] VITALS: BP 129/73; PULSE 91; RESP 14; TEMP 36.8
[2019-09-04] MEDS: oxyCODONE 5 MG Tablet PO ×5 (00:48→21:36)
[2019-09-04] MEDS: Ketorolac 30 MG/ML Syringe IV ×3 (02:58→14:41)
[2019-09-04] MEDS: 0.9% Saline Lock 10 ML Syringe IV ×4 (02:59→14:42)
[2019-09-04 03:12] VITALS: BP 130/70; PULSE 95; RESP 16; TEMP 37.1
[2019-09-04 04:54] LABS: Hematocrit 29.4 % (37-47); Hemoglobin 9.8 g/dL (12.0-15.0); Mean Corp Hgb Conc 33.3 g/dL (32-36); Mean Corpuscular Hgb 28.3 pg (27.0-32.0); Mean Platelet Vol. 10.1 fl (6.2-12.0); Platelet Count 220 K/mm3 (150-450); RBC Distribution Width CV 12.9 % (11.6-14.6); RBC Distribution Width SD 39.6 fl (35.1-43.9); Red Blood Count 3.46 M/mm3 (4.2-5.4)
[2019-09-04 05:17] LABS: ALB/GLOB Ratio 0.5 RATIO (0.9-2.4); AST(SGOT) 19 U/L (15-37); Alanine Aminotransfer ALT/SGPT 16 U/L (13-56); Albumin, Serum 1.8 g/dL (3.2-5.0); Alkaline Phosphatase 87 U/L (45-117); Anion Gap 5 (5-15); BUN 15 mg/dL (7-18); BUN/Creat Ratio 24.8 RATIO (10-20); Calcium,Total 7.5 mg/dL (8.5-10.1); Chloride 108 mmol/L (98-107); Creatinine, Serum 0.61 mg/dL (0.55-1.02); EST Glomerular Filtration Rate 127 mL/min (>60); Est Glom Filt Rate - Afr Amer 154 mL/min (>60); Estimated Creatinine Clearance 142.22 ml/min; Globulin 3.6 g/dL (2.2-4.2); Glucose 95 mg/dL (74-106); Potassium 3.6 mmol/L (3.5-5.1); Protein, Total 5.4 g/dL (6.4-8.2); Sodium Level 137 mmol/L (136-145)
--- NOTE | 2019-09-04 06:03 | NURSING ---
Assisted patient up to BR; during void patient passed 3-4 small to medium size clots. Patient had been laying in bed all night without getting up, fundus reassessed and at -1U, firm and midline. Otherwise bleeding was small in amount and rubra.
[2019-09-04 09:00] VITALS: BP 134/85; PULSE 93; RESP 18; TEMP 37.1; O2SAT 98
--- NOTE | 2019-09-04 11:36 | PN.OBGYN_ITS ---
Patient Problems: Active and Suspected Problems 37 weeks gestation of (Acute) Preeclampsia (Acute) History of DVT (deep vein thrombosis) (Acute) Migraines (Acute) Rheumatoid arthritis (Acute) Idiopathic intracranial hypertension (Acute) Subjective: Patient is doing well. Ambulating and voiding without difficulty. Tolerating regular diet without nausea or vomiting. She denies headache, vision changes, right upper quadrant pain. She denies lightheadedness, dizziness, chest pain, shortness of breath, leg pain. Lochia normal. - Physical Exam Vitals/I&O's: Vital Signs Temp Pulse Resp BP Pulse Ox 98.8 F 93 18 134/85 H 98 09/04/19 09:00 09/04/19 09:00 09/04/19 09:00 09/04/19 09:00 09/04/19 09:00 Oxygen Delivery Method Room Air Weight: 312 lb 8 oz Body Mass Index (BMI) 47.5 Intake and Output for Last 24 Hours 09/02/19 09/03/19 09/04/19 23:59 23:59 23:59 Intake Total 6192.50 / 6192.50 Output Total 1909 / 19090 / 2139 Balance 4282.50 / 4282.50 -2140 / -0 General: Alert, No apparent distress HEENT: Atraumatic Lungs: Normal air movement Skin: No rashes Neurological: Neuro grossly intact Psych/Mental Status: Normal Affect, Appropriate Laboratory Results 09/04/19 04:37: WBC 9.0, RBC 3.46 L, Hgb 9.8 L, Hct 29.4 L, MCV 85.0, MCH 28.3, MCHC 33.3, RDW Std Deviation 39.6, RDW Coeff of Paula 12.9, Plt Count 220, MPV 10.1 09/04/19 04:37: Sodium 137, Potassium 3.6, Chloride 108 H, Carbon Dioxide 24.0, Anion Gap 5, BUN 15, Creatinine 0.61, Estim Creat Clear Calc 142.22, Est GFR (MDRD) Af Amer 154, Est GFR (MDRD) Non-Af 127, BUN/Creatinine Ratio 24.8 H, Glucose 95, Calcium 7.5 L, Total Bilirubin 0.40, AST 19, ALT 16, Alkaline Phosphatase 87, Total Protein 5.4 L, Albumin 1.8 L, Globulin 3.6, Albumin/Globulin Ratio 0.5 L Current Medications Acetaminophen (Tylenol) 1,000 mg PO Q8H PRN PRN PRN Reason: Pain Score 1-3/10;Temp>99.6F Albuterol Sulfate (Ventolin Aerosols) 2.5 mg INHALATION Q4H PRN PRN PRN Reason: Wheezing Bisacodyl (Dulcolax) 10 mg RECTAL UD PRN PRN Reason: If no BM Enoxaparin Sodium (Lovenox) 40 mg SC DAILY@2100 [facility] Last Admin: 09/03/19 20:37 Dose: 40 mg Documented by: Folic Acid (Folic Acid) 1 mg PO DAILY@0800 [facility] Hydrocortisone (Hytone) 1 applic TOPICAL TID PRN PRN; Protocol PRN Reason: Discomfort Hydroxychloroquine Sulfate (Plaquenil) 200 mg PO BID [facility] Lactated Ringer's () 1,000 mls @ 100 mls/hr IV .Q10H [facility] Last Admin: 09/04/19 05:01 Dose: Not Given Documented by: Naloxone HCl 4 mg/ Dextrose 504 mls @ 0 mls/hr IV .Q0M PRN; Protocol PRN Reason: To maintain Resp. rate >10 Ibuprofen (Motrin) 600 mg PO Q6H PRN PRN PRN Reason: Pain Score 1-3/10 Ketorolac Tromethamine (Toradol (Bkc)) 30 mg IV Q6H [facility] Stop: 09/05/19 09:01 Last Admin: 09/04/19 09:09 Dose: 30 mg Documented by: Methylergonovine Maleate (Methergine) 0.2 mg IM X1 PRN PRN Reason: Uterine Atony Last Admin: 09/03/19 10:12 Dose: 0.2 mg Documented by: Naloxone HCl (Narcan) 0.02 mg IV Q1M PRN PRN Reason: RR <10 and pt unresponsive Non-Formulary Medication (Adalimumab) 40 mg SQ UD [facility] Ondansetron HCl (Zofran) 4 mg IV Q4H PRN PRN PRN Reason: Nausea Oxycodone HCl (Oxyir) 5 - 10 mg PO Q4H PRN PRN PRN Reason: Pain Score 4-10/10 Last Admin: 09/04/19 05:51 Dose: 5 mg Documented by: Prochlorperazine Edisylate (Compazine Iv) 10 mg IV Q6H PRN PRN PRN Reason: NAUSEA Senna/Docusate Sodium (Senokot-S, Aster-Colace) 1 - 2 tablet PO DAILY PRN PRN Reason: Constipation Simethicone (Mylicon) 80 mg PO PCHS PRN PRN Reason: Indigestion/stomach pain Last Admin: 09/04/19 09:09 Dose: 80 mg Documented by: Sodium Chloride () 5 - 15 ml IV UD PRN PRN Reason: SALINE FLUSH Last Admin: 09/04/19 09:09 Dose: 10 ml Documented by: Medical Necessity - Tobacco Use Smoking Status: Never smoker Assessment/Plan All Active Problems 37 weeks gestation of (Acute) Preeclampsia (Acute) History of DVT (deep vein thrombosis) (Acute) Migraines (Acute) Rheumatoid arthritis (Acute) Idiopathic intracranial hypertension (Acute) Epiploic appendagitis (Acute) Abdominal pain (Acute) Colitis (Acute) Rheumatoid arthritis (Acute) Patient is postop day 1 from a repeat for preeclampsia. -Pre-e: Labs reviewed this AM. She has no symptoms of pre-e. Blood pressures are normal. No indication for BP medication at this time. Pt instructed to let us know if she develops any symptoms of pre-e - Routine post-op care - Dispo: Anticipate d/c tomorrow
[2019-09-04] MEDS: Folic Acid 1 MG Tablet PO (12:23)
[2019-09-04 13:45] VITALS: BP 137/83; PULSE 88; RESP 18; TEMP 37.1
[2019-09-04 19:44] VITALS: BP 134/40; PULSE 101; RESP 16; TEMP 37.1
[2019-09-04] MEDS: Enoxaparin 40 MG/0.4 ML Syringe SC (21:32)
[2019-09-04] MEDS: Hydroxychloroquine 200 MG Tablet PO (21:32)
[2019-09-05] MEDS: oxyCODONE 5 MG Tablet PO ×3 (02:23→10:23)
[2019-09-05 02:24] VITALS: BP 132/89; PULSE 94; RESP 16; TEMP 36.8
[2019-09-05] MEDS: Ibuprofen 600 MG Tablet PO ×2 (04:31→10:26)
--- NOTE | 2019-09-05 05:22 | RAD_ITS ---
STUDY: X-RAY CHEST REASON FOR EXAM: Female, 23 years old. RT SIDED CP WITH BREATHING -- 2 DAYS POST TECHNIQUE: Single AP portable view of the chest. COMPARISON: 04/16/2019. 09/16/2018. FINDINGS: Minor atelectasis in the lung bases, mild elevation of the right hemidiaphragm. There is no demonstrated pleural abnormality. Normal size heart. Normal mediastinum and anay. Normal visualized pulmonary arteries. Normal visualized aortic arch and descending thoracic aorta. Normal visualized thoracic spine. Normal visualized ribs, clavicles, and shoulders. There is no demonstrated abnormality of the visualized soft tissue structures of the upper abdomen. RAD/Chest 1 View (Portable) IMPRESSION: Bilateral large atelectasis. Electronically Signed: Hillary Dalton MD at 5:56 EDT , Service support ,
[2019-09-05 05:29] VITALS: BP 144/83; PULSE 104; TEMP 36.8; O2SAT 97
--- NOTE | 2019-09-05 05:47 | NURSING ---
0500 this RN called into room by pt support person. RN entered room with pt tearful and stating she was having difficulty taking deep breaths. pt states she was having pain radiating across back and posterior shoulders. pt states this is new onset and denies having any anterior pain near incision site or abdomen. vital signs obtained. oral temp 98.3, pulse 104, BP 144/83, pulse ox 97%. pt breath sounds clear bilaterally and faint crackles heard in lower right lobe by lacy chargeRN. lacy and this RN encouraged pt to sit at edge of bed and perform deep breaths with incentive spirometer. pt appeared to calm down and was able to breath after much encouragement. dr cadet contacted [id number] and reported incident with pt and vitals stable. dr cadet gave verbal order for mobile 1 view chest xray. pt informed of this. will review results when available.devulcanizer charger aware of plan.
[2019-09-05 08:01] VITALS: BP 140/82; PULSE 86; RESP 16; TEMP 36.9; O2SAT 96
[2019-09-05] MEDS: Folic Acid 1 MG Tablet PO (09:23)
[2019-09-05] MEDS: Hydroxychloroquine 200 MG Tablet PO (09:23)
--- NOTE | 2019-09-05 11:53 | PCM.PN.OB ---
Patient Problems: Active and Suspected Problems 37 weeks gestation of (Acute) Preeclampsia (Acute) History of DVT (deep vein thrombosis) (Acute) Migraines (Acute) Rheumatoid arthritis (Acute) Idiopathic intracranial hypertension (Acute) Subjective: Doing well per patient and nursing staff. Having pain on right mid back that radiates to right upper shoulder. Denies any shortness of breath or difficulty breathing but does hurt back when she takes a deep breath. Denies headache, visual changes, chest pain, increased vaginal bleeding or pain. Planning D/C home today. Objective: Mom's Current Diagnoses Single liveborn infant, delivered by 09/03/19 Mom's Problem List Problem Status Onset Code 37 weeks gestation of Acute Z3A.37 Preeclampsia Acute O14.90 History of DVT (deep vein thrombosis) Acute Z86.718 Migraines Acute G43.909 Rheumatoid arthritis Acute M06.9 Idiopathic intracranial hypertension Acute G93.2 Mom's Labs & Results 09/03/19 09/03/19 09/04/19 05:35 05:35 04:37 WBC 9.3 9.0 RBC 4.04 L 3.46 L Hgb 11.5 L 9.8 L Hct 33.5 L 29.4 L MCV 82.9 85.0 MCH 28.5 28.3 MCHC 34.3 33.3 RDW Std Deviation 38.8 39.6 RDW Coeff of Paula 12.7 12.9 Plt Count 275 220 MPV 10.4 10.1 Immature Gran % (Auto) 0.300 Neut % (Auto) 70.6 H Lymph % (Auto) 21.9 Sanborn % (Auto) 6.2 Eos % (Auto) 0.8 Baso % (Auto) 0.2 Absolute Neuts (auto) 6.6 Absolute Lymphs (auto) 2.03 Nucleated RBC % 0 Sodium Potassium Chloride Carbon Dioxide Anion Gap BUN Creatinine Estim Creat Clear Calc Est GFR (MDRD) Af Amer Est GFR (MDRD) Non-Af BUN/Creatinine Ratio Glucose Calcium Total Bilirubin AST ALT Alkaline Phosphatase Total Protein Albumin Globulin Albumin/Globulin Ratio Blood Type A POSITIVE Antibody Screen NEGATIVE 09/04/19 04:37 WBC RBC Hgb Hct MCV MCH MCHC RDW Std Deviation RDW Coeff of Paula Plt Count MPV Immature Gran % (Auto) Neut % (Auto) Lymph % (Auto) Sanborn % (Auto) Eos % (Auto) Baso % (Auto) Absolute Neuts (auto) Absolute Lymphs (auto) Nucleated RBC % Sodium 137 Potassium 3.6 Chloride 108 H Carbon Dioxide 24.0 Anion Gap 5 BUN 15 Creatinine 0.61 Estim Creat Clear Calc 142.22 Est GFR (MDRD) Af Amer 154 Est GFR (MDRD) Non-Af 127 BUN/Creatinine Ratio 24.8 H Glucose 95 Calcium 7.5 L Total Bilirubin 0.40 AST 19 ALT 16 Alkaline Phosphatase 87 Total Protein 5.4 L Albumin 1.8 L Globulin 3.6 Albumin/Globulin Ratio 0.5 L Blood Type Antibody Screen Vital Signs - 24 hr Temp Pulse Resp BP Pulse Ox 09/05/19 08:01 98.4 F 86 16 140/82 H 96 09/05/19 05:29 98.3 F 104 H 144/83 H 97 09/05/19 02:24 98.3 F 94 16 132/89 H 09/04/19 19:44 98.8 F 101 H 16 134/40 H 09/04/19 13:45 98.8 F 88 18 137/83 H - Physical Exam Vitals/I&O's: Vital Signs Temp Pulse Resp BP Pulse Ox 98.4 F 86 16 140/82 H 96 09/05/19 08:01 09/05/19 08:01 09/05/19 08:01 09/05/19 08:01 09/05/19 08:01 Oxygen Delivery Method Room Air Weight: 312 lb 8 oz Body Mass Index (BMI) 47.5 Intake and Output for Last 24 Hours 09/03/19 09/04/19 09/05/19 23:59 23:59 23:59 Intake Total 6192.50 / 6192.50 1000 / 1000 Output Total 1909 / 2139 Balance 4282.50 / 4282.50 -214 / -2139 1000 / 1000 General: Alert, Oriented x3, Cooperative HEENT: Atraumatic, Normocephalic Neck: Trachea Midline Lungs: Clear to auscultation, Normal air movement, No rhonchi, No wheeze Cardiovascular: Regular rate, Regular Rhythm, No murmurs Abdomen: Hypoactive Bowel Sounds - Fundus firm 3 below U, appropriately tender. Dressing intact, small amount of old dry blood on dressing. Extremities: Edema - +2 BLE edema, shay's negative, no clonus. DTR +1/4 bilateral patellar. Psych/Mental Status: Normal Affect, Appropriate Current Medications Acetaminophen (Tylenol) 1,000 mg PO Q8H PRN PRN PRN Reason: Pain Score 1-3/10;Temp>99.6F Albuterol Sulfate (Ventolin Aerosols) 2.5 mg INHALATION Q4H PRN PRN PRN Reason: Wheezing Bisacodyl (Dulcolax) 10 mg RECTAL UD PRN PRN Reason: If no BM Enoxaparin Sodium (Lovenox) 40 mg SC DAILY@2100 [facility] Last Admin: 09/04/19 21:32 Dose: 40 mg Documented by: Folic Acid (Folic Acid) 1 mg PO DAILY@0800 [facility] Last Admin: 09/05/19 09:23 Dose: 1 mg Documented by: Hydrocortisone (Hytone) 1 applic TOPICAL TID PRN PRN; Protocol PRN Reason: Discomfort Hydroxychloroquine Sulfate (Plaquenil) 200 mg PO BID [facility] Last Admin: 09/05/19 09:23 Dose: 200 mg Documented by: Naloxone HCl 4 mg/ Dextrose 504 mls @ 0 mls/hr IV .Q0M PRN; Protocol PRN Reason: To maintain Resp. rate >10 Ibuprofen (Motrin) 600 mg PO Q6H PRN PRN PRN Reason: Pain Score 1-3/10 Last Admin: 09/05/19 10:26 Dose: 600 mg Documented by: Methylergonovine Maleate (Methergine) 0.2 mg IM X1 PRN PRN Reason: Uterine Atony Last Admin: 09/03/19 10:12 Dose: 0.2 mg Documented by: Naloxone HCl (Narcan) 0.02 mg IV Q1M PRN PRN Reason: RR <10 and pt unresponsive Non-Formulary Medication (Adalimumab) 40 mg SQ UD [facility] Ondansetron HCl (Zofran) 4 mg IV Q4H PRN PRN PRN Reason: Nausea Oxycodone HCl (Oxyir) 5 - 10 mg PO Q4H PRN PRN PRN Reason: Pain Score 4-10/10 Last Admin: 09/05/19 10:23 Dose: 5 mg Documented by: Prochlorperazine Edisylate (Compazine Iv) 10 mg IV Q6H PRN PRN PRN Reason: NAUSEA Senna/Docusate Sodium (Senokot-S, Aster-Colace) 1 - 2 tablet PO DAILY PRN PRN Reason: Constipation Simethicone (Mylicon) 80 mg PO PCHS PRN PRN Reason: Indigestion/stomach pain Last Admin: 09/05/19 11:46 Dose: 80 mg Documented by: Sodium Chloride () 5 - 15 ml IV UD PRN PRN Reason: SALINE FLUSH Last Admin: 09/04/19 14:42 Dose: 10 ml Documented by: Medical Necessity - Tobacco Use Smoking Status: Never smoker Assessment/Plan All Active Problems 37 weeks gestation of (Acute) Preeclampsia (Acute) History of DVT (deep vein thrombosis) (Acute) Migraines (Acute) Rheumatoid arthritis (Acute) Idiopathic intracranial hypertension (Acute) Epiploic appendagitis (Acute) Abdominal pain (Acute) Colitis (Acute) Rheumatoid arthritis (Acute) A:POD #2 Repeat Section Preeclampsia P: 1) Routine care 2) Planning D/C home today 3) BP mildly elevated, will check BP at home and call if >160/110. Follow up in office in 2 days for a blood pressure check with a provider. Preeclampsia symptoms reviewed. Consulted Dr. Cuenca and agrees with plan. 4) Incision check in one week 5) Follow up in 6 weeks for PP visit 6) Percocet for pain, Rx sent 7) Continue Lovenox at current dose. 8) D/C home today
--- NOTE | 2019-09-05 12:12 | DCINST_ITS ---
Discharge Diet: No Restrictions Discharge Activity: May Not Drive - for 2 weeks or while taking narcotic pain meds., May Shower, May Take a Tub Bath - in 7 days. May resume sexual activity in: 4-6 weeks Weight Bearing Status: Full weight bearing Lifting Restrictions: 20 pounds Additional Activity Instructions:: Nothing in the vagina for 4-6 weeks. You may return to work/school in 6 weeks. Call your doctor if your incision/area has: Continuous Slow Oozing, Sudden Increased Bleeding, Increased Pain/ Swelling, Increased Redness, Foul Smelling Discharge Call your doctor if you observe: Fever of 101 or Higher, Inability to urinate, Inability to have a bowel movement, Using more than one pad per hour, Shortness of breath, Chest pain, Increased palpitations (irregular heartbeat), Calf discomfort, Uncontrolled pain Suture Line Care: Avoid Pulling/Pushing, Avoid Pinching/Bending Additional Instructions: If you experience any of the following, contact your healthcare provider. * Bleeding that soaks a pad every hour for 2 hours * Fever 100.4 or higher * Unrelieved incision or abdominal pain * Swelling, redness, discharge or bleeding from your incision or episiotomy site * Your incision begins to separate * Problems urinating (including inability to urinate or burning while urinating). * Visual changes * Severe headache * Flu-like symptoms * Pain or redness in one of both of your breasts * Pain, warmth, tenderness or swelling in your legs, especially the calf area * Frequent nausea and vomiting * Symptoms of depression or anxiety If you experience any of the following, call 911 or go to the nearest Emergency Room. * Chest pain * Problems breathing * Seizure activity * Partial or complete paralysis of a body part, slurred speech, weakness or drooping of the face, or a sudden inability to walk or hold your balance Allergies/Adverse Reactions: Allergies morphine Allergy (Verified 09/03/19 06:14) Hives metronidazole [From Flagyl] Adverse Reaction (Verified 09/03/19 06:14) Hives Medications to take at Discharge Adalimumab [Humira] 40 mg UD 09/30/16 Hydroxychloroquine [Plaquenil] 200 mg PO BID 03/22/18 Enoxaparin Sodium [Lovenox] 40 mg SQ DAILY 03/19/19 Vit B Comp C 19/Folic Acid/D3 [Nephronex-Sl Tablet] 1 ea PO DAILY PRN 03/19/19 Albuterol Inhaler [Ventolin Hfa] 1 - 2 puff INHALATION Q4H PRN PRN #1 inhaler 04/16/19 Ferrous Sulfate [Iron] 140 mg PO DAILY 08/30/19 Folic Acid 1 mg PO DAILY 09/03/19 Magnesium Oxide 400 mg PO PRN PRN 09/03/19 Metoclopramide [Reglan] 10 mg PO PRN PRN 09/03/19 Oxycodone HCl/Acetaminophen [Percocet 5/325] 1 - 2 tablet PO Q4H PRN PRN 7 Days #20 tablet 09/05/19 The following prescriptions were given: Oxycodone HCl/Acetaminophen [Percocet 5/325] 1 - 2 tablet PO Q4H PRN PRN 7 Days #20 tablet PRN Reason: Pain Transmission Status: Sent to [facility] Follow-Up: Call to make an appointment with your doctor for an incision check in 2 days for blood pressure check in office. You will also need a 6 week post- follow up appointment. Test results from this visit will be discussed in further detail at your follow- up appointment, if applicable. Primary Care Physician: Care Physician,No Primary [Primary Care Provider] -
--- NOTE | 2019-09-05 12:18 | DS.PCM_ITS ---
Discharge Date and Diagnosis - Problem List Patient Problems: Active and Suspected Problems 37 weeks gestation of (Acute) Preeclampsia (Acute) History of DVT (deep vein thrombosis) (Acute) Migraines (Acute) Rheumatoid arthritis (Acute) Idiopathic intracranial hypertension (Acute) Date of Admission: 03/18/16 - Primary Discharge Diagnosis Active and Suspected Problems 37 weeks gestation of (Acute) Preeclampsia (Acute) History of DVT (deep vein thrombosis) (Acute) Migraines (Acute) Rheumatoid arthritis (Acute) Idiopathic intracranial hypertension (Acute) - Secondary Discharge Diagnosis Chronic Problems BMI 40.0-44.9, adult (Chronic) Hospital Course and Treatment Imaging Results: 09/05/19 05:22 CXR [Chest 1 View (Portable)] [RAD] Urgent Operations: None Summary of Care Provided: This is a 23 year-old, who presents at 37 weeks for scheduled section preeclampsia. Section 09/03/19. Two day stay, uncomplicated course. Discharge home on post operative day #2. Patient Problems: Active and Suspected Problems 37 weeks gestation of (Acute) Preeclampsia (Acute) History of DVT (deep vein thrombosis) (Acute) Migraines (Acute) Rheumatoid arthritis (Acute) Idiopathic intracranial hypertension (Acute) - Physical Exam Vitals/I&O's: Vital Signs Temp Pulse Resp BP Pulse Ox 98.4 F 86 16 140/82 H 96 09/05/19 08:01 09/05/19 08:01 09/05/19 08:01 09/05/19 08:01 09/05/19 08:01 Oxygen Delivery Method Room Air Weight: 312 lb 8 oz Body Mass Index (BMI) 47.5 Intake and Output for Last 24 Hours 09/03/19 09/04/19 09/05/19 23:59 23:59 23:59 Intake Total 6192.50 / 6192.50 1000 / 1000 Output Total 1909 / 0 2140 / 2140 Balance 4282.50 / 4282.50 -2140 / -2140 1000 / 1000 Current Medications Acetaminophen (Tylenol) 1,000 mg PO Q8H PRN PRN PRN Reason: Pain Score 1-3/10;Temp>99.6F Albuterol Sulfate (Ventolin Aerosols) 2.5 mg INHALATION Q4H PRN PRN PRN Reason: Wheezing Bisacodyl (Dulcolax) 10 mg RECTAL UD PRN PRN Reason: If no BM Enoxaparin Sodium (Lovenox) 40 mg SC DAILY@2100 [facility] Last Admin: 09/04/19 21:32 Dose: 40 mg Documented by: Folic Acid (Folic Acid) 1 mg PO DAILY@0800 [facility] Last Admin: 09/05/19 09:23 Dose: 1 mg Documented by: Hydrocortisone (Hytone) 1 applic TOPICAL TID PRN PRN; Protocol PRN Reason: Discomfort Hydroxychloroquine Sulfate (Plaquenil) 200 mg PO BID [facility] Last Admin: 09/05/19 09:23 Dose: 200 mg Documented by: Naloxone HCl 4 mg/ Dextrose 504 mls @ 0 mls/hr IV .Q0M PRN; Protocol PRN Reason: To maintain Resp. rate >10 Ibuprofen (Motrin) 600 mg PO Q6H PRN PRN PRN Reason: Pain Score 1-3/10 Last Admin: 09/05/19 10:26 Dose: 600 mg Documented by: Methylergonovine Maleate (Methergine) 0.2 mg IM X1 PRN PRN Reason: Uterine Atony Last Admin: 09/03/19 10:12 Dose: 0.2 mg Documented by: Naloxone HCl (Narcan) 0.02 mg IV Q1M PRN PRN Reason: RR <10 and pt unresponsive Non-Formulary Medication (Adalimumab) 40 mg SQ UD [facility] Ondansetron HCl (Zofran) 4 mg IV Q4H PRN PRN PRN Reason: Nausea Oxycodone HCl (Oxyir) 5 - 10 mg PO Q4H PRN PRN PRN Reason: Pain Score 4-10/10 Last Admin: 09/05/19 10:23 Dose: 5 mg Documented by: Prochlorperazine Edisylate (Compazine Iv) 10 mg IV Q6H PRN PRN PRN Reason: NAUSEA Senna/Docusate Sodium (Senokot-S, Aster-Colace) 1 - 2 tablet PO DAILY PRN PRN Reason: Constipation Simethicone (Mylicon) 80 mg PO PCHS PRN PRN Reason: Indigestion/stomach pain Last Admin: 09/05/19 11:46 Dose: 80 mg Documented by: Sodium Chloride () 5 - 15 ml IV UD PRN PRN Reason: SALINE FLUSH Last Admin: 09/04/19 14:42 Dose: 10 ml Documented by: Discharge Diet: No Restrictions Discharge Activity: May Not Drive - for 2 weeks or while taking narcotic pain meds., May Shower, May Take a Tub Bath - in 7 days. May resume sexual activity in: 4-6 weeks Weight Bearing Status: Full weight bearing Additional Activity Instructions:: Nothing in the vagina for 4-6 weeks. You may return to work/school in 6 weeks. Call your doctor if your incision/area has: Continuous Slow Oozing, Sudden Incre ased Bleeding, Increased Pain/ Swelling, Increased Redness, Foul Smelling Discharge Call your doctor if you observe: Fever of 101 or Higher, Inability to urinate, Inability to have a bowel movement, Using more than one pad per hour, Shortness of breath, Chest pain, Increased palpitations (irregular heartbeat), Calf discomfort, Uncontrolled pain Suture Line Care: Avoid Pulling/Pushing, Avoid Pinching/Bending Home Medications: Medications to take at Discharge Adalimumab [Humira] 40 mg UD 09/30/16 Hydroxychloroquine [Plaquenil] 200 mg PO BID 03/22/18 Enoxaparin Sodium [Lovenox] 40 mg SQ DAILY 03/19/19 Vit B Comp C 19/Folic Acid/D3 [Nephronex-Sl Tablet] 1 ea PO DAILY PRN 03/19/19 Albuterol Inhaler [Ventolin Hfa] 1 - 2 puff INHALATION Q4H PRN PRN #1 inhaler 04/16/19 Ferrous Sulfate [Iron] 140 mg PO DAILY 08/30/19 Folic Acid 1 mg PO DAILY 09/03/19 Magnesium Oxide 400 mg PO PRN PRN 09/03/19 Metoclopramide [Reglan] 10 mg PO PRN PRN 09/03/19 Oxycodone HCl/Acetaminophen [Percocet 5/325] 1 - 2 tablet PO Q4H PRN PRN 7 Days #20 tablet 09/05/19 Following Prescrptions Were Given to Patient: Oxycodone HCl/Acetaminophen [Percocet 5/325] 1 - 2 tablet PO Q4H PRN PRN 7 Days #20 tablet PRN Reason: Pain Transmission Status: Sent to [facility] Primary Care Physician: Care Physician,No Primary [Primary Care Provider] - Medical Necessity - Tobacco Use Smoking Status: Never smoker Meaningful Use Info Meaningful Use Diagnoses (Choose all that apply): None applicable
[2019-09-05 12:49] VITALS: BP 140/82; RESP 16; TEMP 36.9; O2SAT 99
== END 2019-09-05 14:20 | disposition home or self-care (01) | DRG 540 ==
PROVIDERS: Admitting Provider Obstetrics & Gynecology; Family Provider Family Medicine; Visit Provider Obstetrics & Gynecology
PROC: 10D00Z1 Extraction of Products of Conception, Low, Open Approach (ICD-10-PCS; CPT 59514; principal; 2019-09-03 07:15)
DX: O14.94 Unspecified pre-eclampsia, complicating childbirth (principal); O34.211 Maternal care for low transverse scar from previous cesarean delivery; O69.81X0 Labor and delivery complicated by cord around neck, without compression, not applicable or unspecified; O10.92 Unspecified pre-existing hypertension complicating childbirth; G93.2 Benign intracranial hypertension; M06.9 Rheumatoid arthritis, unspecified; O99.214 Obesity complicating childbirth; E66.9 Obesity, unspecified; Z86.718 Personal history of other venous thrombosis and embolism; Z79.01 Long term (current) use of anticoagulants; Z79.899 Other long term (current) drug therapy; Z3A.37 37 weeks gestation of pregnancy; Z37.0 Single live birth
CPT/HCPCS: 71045; 80053; 85025; 85027; 86850; 86900; 86901; 99218; 99251; J7120; A4216; G0378; G0463; J2405

== ENCOUNTER 2019-09-14 17:20 | Emergency (ER) | payer MEDICAID, SELFPAY ==
[2019-09-03 05:36] VITALS: BMI 47.5
[2019-09-14 17:22] VITALS: BP 140/90; PULSE 104; RESP 18; TEMP 36.8; O2SAT 99; BMI 44.1
--- NOTE | 2019-09-14 17:38 | ED.DCSUM_ITS ---
- ER Visit Summary Date of Service: 09/14/19 Chief Complaint: Possible pleural effusion History of Present Illness: The patient is a 23 F history of a prior PE, rheumatoid arthritis fibromyalgia. Patient status post 09/03/2019. She is currently and has been being treated with Lovenox. States he takes a daily. Has not missed dosages. She denies any pleuritic chest pain. She denies any hemoptysis. She denies any fever or chills. No specific cough. Physical Examination: Well-appearing 23-year-old no acute distress. Vital signs stable. Afebrile. Pulse ox 9 9% on room air no signs hypoxia. HEENT exam normal. Neck nontender no JVD. Lungs clear to auscultation bilaterally. Heart regular rhythm rate about 100 no murmur. Abdomen soft nontender normal bowel sounds no peritoneal signs. Patient is moving all 4 extremities. She has trace edema in her feet. Calves are nontender. Neurologically she is awake and alert with no focal motor deficits. Back is nontender. Test Results: Chest x-ray portable 1 view read by myself shows this shows small to moderate size right pleural effusion with atelectasis. Left side of the lung and cardiac silhouette are normal. Emergency Department Course and Treatment: patient on Lovenox with a prior history of a PE and a prior pleural effusion. She will undergo screening labs and a chest x-ray. Clinically this does not sound like a PE. Even if it was a PE she is currently being treated with Lovenox. Repeat exam at 6:29 PM patient is doing well. She denies discussed her test results reviewed her chest x-ray. She will be discharged home continue on her current medications and follow-up for repeat chest x-ray if she is not improving. She knows return if worse Treatment Plan: Outpatient follow-up. Repeat chest x-ray. Disposition: Discharge Impression: Acute right pleural effusion Status post with a recent Anticoagulated on Lovenox History of rheumatoid arthritis This note was generated with [employer] software. It may contain incorrect words, spelling, and punctuation that were not noted in review of the chart prior to signing ED Disposition - Plan for ED Patient: Referrals: Care Physician,No Primary [Primary Care Provider] -
[2019-09-14 17:42] VITALS: O2SAT 99
[2019-09-14 17:50] VITALS: BP 128/85; PULSE 97; RESP 29; O2SAT 100
--- NOTE | 2019-09-14 18:01 | RAD_ITS ---
STUDY: X-RAY CHEST REASON FOR EXAM: Female, 23 years old. Sent by for pleural effusion follow-up. Had 09/02 and is on Lovenox for previous PE TECHNIQUE: Single frontal view of the chest. COMPARISON: September 05, 2019. FINDINGS: There is a new right pleural effusion. There is persistent elevation of the right hemidiaphragm. There is cardiomegaly. Normal mediastinum and anay. Normal visualized pulmonary arteries. Normal visualized aortic arch and descending thoracic aorta. Normal visualized thoracic spine. Normal visualized ribs, clavicles, and shoulders. There is no demonstrated abnormality of the visualized soft tissue structures of the upper abdomen. RAD/Chest 1 View (Portable) IMPRESSION: New right pleural effusion, cannot exclude associated right basilar atelectasis and/or pneumonia. Cardiomegaly. Electronically Signed: Taylor Napier MD at 18:20 EDT Tel , Service support ,
[2019-09-14 18:07] LABS: Hematocrit 38.4 % (37-47); Hemoglobin 12.4 g/dL (12.0-15.0); Mean Corp Hgb Conc 32.3 g/dL (32-36); Mean Corpuscular Hgb 28.1 pg (27.0-32.0); Mean Corpuscular Volume 87.1 fL (81-99); Mean Platelet Vol. 8.7 fl (6.2-12.0); Platelet Count 414 K/mm3 (150-450); RBC Distribution Width CV 13.1 % (11.6-14.6); RBC Distribution Width SD 41.7 fl (35.1-43.9); Red Blood Count 4.41 M/mm3 (4.2-5.4); White Blood Count 9.3 K/mm3 (4.4-11.0)
[2019-09-14 18:24] LABS: Anion Gap 9 (5-15); BUN 18 mg/dL (7-18); BUN/Creat Ratio 24.2 RATIO (10-20); Calcium,Total 9.2 mg/dL (8.5-10.1); Chloride 106 mmol/L (98-107); Creatinine, Serum 0.74 mg/dL (0.55-1.02); EST Glomerular Filtration Rate 101 mL/min (>60); Est Glom Filt Rate - Afr Amer 122 mL/min (>60); Estimated Creatinine Clearance 117.23 ml/min; Glucose 90 mg/dL (74-106); Potassium 4.2 mmol/L (3.5-5.1); Sodium Level 140 mmol/L (136-145)
--- NOTE | 2019-09-14 18:32 | ED.DEP ---
ED Disposition - Plan for ED Patient: Disposition: Home or Assisted Living Instructions: ED Effusion Pleural Referrals: Estrellita Seay [STAFF PHYSICIAN] - 1 Week if not improving Prema Lechuga [NON-STAFF] - 1 Week if not improving Additional Instructions: Up with either your LEV[facility]IDE GRINDER or your primary care physician within the next week if not improving. If not getting better or worse they may need to repeat a chest x-ray to see if the pleural effusion which is the fluid on the right side of your lung is getting worse. Continue your current medications. Continue Lovenox. Follow-up with the emergency department if feeling worse.
[2019-09-14 18:39] VITALS: BP 127/85; PULSE 97; RESP 24; O2SAT 99
== END 2019-09-14 18:50 | disposition home or self-care (01) ==
LOC: ED 18:44
PROVIDERS: Emergency Provider Emergency Medicine; PCP Family Medicine
DX: O90.89 Other complications of the puerperium, not elsewhere classified (principal); J90 Pleural effusion, not elsewhere classified; M06.9 Rheumatoid arthritis, unspecified; M79.7 Fibromyalgia; Z79.01 Long term (current) use of anticoagulants; Z79.899 Other long term (current) drug therapy; Z86.711 Personal history of pulmonary embolism
CPT/HCPCS: 71045; 80048; 85027; 99284; A4216

== ENCOUNTER 2019-09-26 09:56 | Observation (INO) | payer MEDICAID, SELFPAY ==
[2019-09-26] VITALS (14 sets, daily range): BP systolic 119–158; BP diastolic 66–95; PULSE 105–131; RESP 16–28; TEMP 36.6–37; O2SAT 96–100; BMI 42.5; BMI 43.1
--- NOTE | 2019-09-26 10:10 | RAD_ITS ---
STUDY: X-RAY CHEST REASON FOR EXAM: Female, 23 years old. Shortness of breath TECHNIQUE: Single AP portable view of the chest. COMPARISON: 09/14/2019 FINDINGS: The lungs are clear and expanded. There is no demonstrated pleural abnormality. Previously seen right pleural effusion has decreased in size. Normal size heart. Normal mediastinum and anay. Normal visualized pulmonary arteries. Normal visualized aortic arch and descending thoracic aorta. Normal visualized thoracic spine. Normal visualized ribs, clavicles, and shoulders. There is no demonstrated abnormality of the visualized soft tissue structures of the upper abdomen. RAD/Chest 1 View (Portable) IMPRESSION: Normal x-ray examination of the chest. Previously seen right pleural effusion has decreased. Electronically Signed: Geovanna Horton, at 11:21 EDT Tel , Service support ,
--- NOTE | 2019-09-26 10:11 | EKG12_ITS ---
Test Reason : SOB Blood Pressure : / mmHG Vent. Rate : 123 BPM Atrial Rate : 123 BPM P-R Int : 130 ms QRS Dur : 088 ms QT Int : 312 ms P-R-T Axes : 039 062 016 degrees QTc Int : 446 ms Sinus tachycardia Otherwise normal ECG Confirmed by BECCA ARTHUR MD ([id number]), assistant film editor ELROY MORALES ([id number]) on 10/02/2019 2:19:56 PM Referred By: NGHIA Confirmed By:BECCA ARTHUR MD
--- NOTE | 2019-09-26 10:13 | ED.VISSUMM ---
- ER Visit Summary Date of Service: 09/26/19 Chief Complaint: [Shortness of breath] History of Present Illness: The patient is a 23 F [emergency department complaint shortness of breath. Patient states that she had a on September 02. Since that time she is developed trouble breathing and was diagnosed with a right-sided pleural effusion. Patient states she is having a hard time laying flat and has to sleep on 4 pillows. Patient denies any chest pain. She is had no fever. No real cough. Patient has history of PEs and is currently on Lovenox. Patient has been compliant with her Lovenox. Complains of exertional dyspnea. Patient has orthopnea. Patient has history of rheumatoid arthritis and history of pseudotumor cerebri.] Physical Examination: [HEENT-PERRLA, EOMI. Cranial nerves II through XII grossly intact. TMs clear. Mucous membranes moist. No adenopathy. Cardiovascular-regular rate and rhythm without murmur or ectopy Lungs-good aeration bilaterally. Patient has some faint rales in both bases. Mild tachypnea. No excessive muscle use or retractions. Abdomen-normoactive bowel sounds, soft, nontender, no rebound or rigidity, no peritoneal signs. Extremities-intact ?4, normal range of motion, normal pulses, atraumatic. Patient has trace edema both lower extremities.] Test Results: [CBC with differential obtained was normal. Chemistries unremarkable. LFTs normal. Troponin less than 0.015. EKG obtained shows sinus tachycardia with a ventricular rate of 123 bpm with no acute segment changes. TSH was 0.82. Chest x-ray showed a resolved right effusion essentially normal x-ray. CTA of the chest was negative for PE or dissection although she did have some lymphadenopathy that was stable since September 2018 however increased from 2017 there was some concern as to whether or not any of the lymph nodes have been biopsied as there is some concern for infiltrative process such as lymphoma. Patient has not had any lymph node biopsies.] Emergency Department Course and Treatment: [Patient placed on it security architect. Patient case discussed with hospitalist will evaluate patient for admission] Treatment Plan: Admit for echocardiogram and further evaluation as I have concern for possible cardiomyopathy [] Disposition: [Admit] Impression: [Dyspnea Tachycardia] This note was generated with [employer] dictation software. It may contain incorrect words, spelling, and punctuation that were not noted in review of the chart prior to signing ED Disposition - Plan for ED Patient: Referrals: Prema Lechuga MD [Primary Care Provider] -
[2019-09-26 10:30] LABS: Absolute Lymphocyte Count 0.63 X10^3/uL (0.83-4.51); Absolute Neutrophil Count 4.8 X10^3/uL (2.0-7.7); Basophil# 0.01 X10^3/uL; Basophil% 0.2 % (0-1); Eosinophil# 0.51 X10^3/uL; Hematocrit 35.9 % (37-47); Hemoglobin 11.5 g/dL (12.0-15.0); Lymphocyte # 0.63 X10^3/ul (4.0); Lymphocyte % 9.9 % (19-41); Mean Corpuscular Hgb 27.4 pg (27.0-32.0); Mean Corpuscular Volume 85.7 fL (81-99); Mean Platelet Vol. 8.7 fl (6.2-12.0); Monocyte# 0.43 X10^3/uL; Monocyte% 6.7 % (0-10); NRBC Flagged by Analyzer 0 % (0-5); Neutrophil # 4.79 X10^3/uL (2.7-7.7); Platelet Count 396 K/mm3 (150-450); RBC Distribution Width CV 12.8 % (11.6-14.6); RBC Distribution Width SD 39.8 fl (35.1-43.9); Red Blood Count 4.19 M/mm3 (4.2-5.4); White Blood Count 6.4 K/mm3 (4.4-11.0)
[2019-09-26 10:46] LABS: ALB/GLOB Ratio 0.6 RATIO (0.9-2.4); AST(SGOT) 15 U/L (15-37); Alanine Aminotransfer ALT/SGPT 18 U/L (13-56); Albumin, Serum 2.8 g/dL (3.2-5.0); Alkaline Phosphatase 140 U/L (45-117); Anion Gap 7 (5-15); BUN 12 mg/dL (7-18); Calcium,Total 8.6 mg/dL (8.5-10.1); Chloride 107 mmol/L (98-107); Creatinine, Serum 0.75 mg/dL (0.55-1.02); EST Glomerular Filtration Rate 99 mL/min (>60); Est Glom Filt Rate - Afr Amer 120 mL/min (>60); Estimated Creatinine Clearance 115.67 ml/min; Globulin 4.8 g/dL (2.2-4.2); Glucose 131 mg/dL (74-106); Potassium 3.7 mmol/L (3.5-5.1); Protein, Total 7.6 g/dL (6.4-8.2); Sodium Level 139 mmol/L (136-145)
[2019-09-26 10:47] LABS: BNP,B-Type NATRIURETIC PEPTIDE 22.8 pg/mL (0-100)
--- NOTE | 2019-09-26 10:53 | CT_ITS ---
STUDY: CTA CHEST REASON FOR EXAM: Female, 23 years old. Shortness of breath, pleural effusions RADIATION DOSAGE (If Supplied By Facility): CTDIvol = ( 12.61 ) mGy, DLP = ( 472.34 ) mGycm TECHNIQUE: The examination was performed with the intravenous administration of 100 ML ISOVUE 370. Post-processing of the angiographic images was performed, with multiplanar reformation and 3D reconstruction. Individualized dose optimization techniques were used for this CT. COMPARISON: Chest CTA 09/16/2018 and 09/30/2016. FINDINGS: Normal enhancement of the main pulmonary artery and right and left pulmonary arteries. There is limited enhancement of the bilateral peripheral pulmonary arteries. There is no demonstrated central pulmonary embolism. Small right pleural effusion is new since prior exam. There is interval resolution of the previously seen left pleural effusion. Normal pulmonary parenchyma. No focal pulmonary consolidation. Normal thoracic aorta and visualized great vessels. There is no demonstrated aortic dissection. Normal heart and pericardium. No pericardial effusion. Again seen is bilateral axillary and subpectoral adenopathy, unchanged in measuring up to 1.5 cm short axis. Residual thymus in the anterior mediastinum is again noted. Subcarinal lymph node measures 1.1 cm short axis, unchanged. Normal visualized trachea and bronchi. Normal chest wall structures. Normal osseous structures. Stable splenomegaly measuring 15 cm. There are degenerative changes of thoracic spine. Scoliotic curvature of the spine. There is bilateral shoulder arthrosis, right greater than left. CT/CTA Chest W/WO Contrast IMPRESSION: 1. No central pulmonary embolism or arterial dissection. Small right pleural effusion is new since prior exam. There is interval resolution of the previously seen left pleural effusion. No focal pulmonary consolidation. 2. Stable bilateral axillary and subpectoral adenopathy since 09/16/2018, but increased since 2016. Stable mild subcarinal adenopathy. Consider tissue sampling if not already performed as this is suspicious for infiltrative lymphatic process such as lymphoma. 3. Stable splenomegaly. Electronically Signed: Geovanna Horton, at 12:10 EDT Tel , Service support ,
[2019-09-26 12:15] LABS: Thyroid Stim Hormone (TSH) 0.82 uIU/mL (0.358-3.74)
--- NOTE | 2019-09-26 12:45 | PCM.HP.STD ---
History of Present Illness Date of Admission: 09/26/19 Chief Complaint: shortness of breath, chest pain The patient is a 23 year old F who recently had a second delivery by section on September 02, 2018. She was admitted through the ED on 09/26/2019 with a complaint of chest pain and shortness of breath. course was complicated by left-sided pleural effusion and she is developed shortness of breath afterwards. However this subsequently improved. However over the past few days shortness of breath has been getting worse with associated chest pain. Chest pain is left-sided, pleuritic in nature and aggravated by breathing in and out. And had no relieving factors. She also had associated orthopnea and PND but denied any lower extremity swelling. She had not had such symptoms in the past. She does have a history of rheumatoid arthritis and fibromyalgia. She is on adalimumab and also has a history of PE and so was on Lovenox 40 mg daily. On admission in the ED, vitals were significant for heart rate of 131 with respiratory rate of 20 and blood pressure of 121/88. Temperature was 98.2 Fahrenheit. She was saturating at 97% on room air. Chemistry was essentially unremarkable. TSH was 0.82. CBC showed hemoglobin of 11.5 with WBC of 6.4 and platelets of 396. Chest x-ray done showed decrease in previously seen right-sided pleural effusion but there was no other acute cardiopulmonary process. And she had bilateral axillary and subpectoral adenopathy unchanged and measurement. CTA of the chest was done which was negative for any PE and showed a small right pleural effusion with interval resolution of the previously seen left pleural effusion and showed no focal pulmonary consolidation and showed stable bilateral axillary and subpectoral adenopathy since 09/16/2018 which had increased since 2017, and stable splenomegaly. BNP was 22. She is being admitted to be managed for chest pain and shortness of breath of unclear etiology] Past Medical History Past Medical History (Chronic Problems): Chronic Problems BMI 40.0-44.9, adult (Chronic) Allergies morphine Allergy (Verified 09/26/19 09:56) Hives metronidazole [From Flagyl] Adverse Reaction (Verified 09/26/19 09:56) Hives Home Medications: Ambulatory Orders Medication Instructions Recorded Adalimumab [Humira] 40 mg SQ UD 09/30/16 Hydroxychloroquine [Plaquenil] 200 mg PO BID 03/22/18 Enoxaparin Sodium [Lovenox] 40 mg SQ QHS 03/19/19 Albuterol Inhaler [Ventolin Hfa] 1 - 2 puff INHALATION Q4H PRN PRN 04/16/19 #1 inhaler Magnesium Oxide 400 mg PO DAILY PRN PRN 09/03/19 Metoclopramide [Reglan] 10 mg PO DAILY PRN PRN 09/03/19 Surgical History: - - section Psychiatric History: No pertinent psych hx [employer]ING [employer]URING [employer]ICIAN History: No pertinent DISP[employer]ING [employer] ME[employer]URING [employer]ICIAN history Lives: With Family Smoking Status: Never smoker Alcohol: None Drugs: None - *Family History Paternal History Items: No pertinent history Review of Systems Constitutional: Denies: Chills, Fever, Malaise, Weakness, Weight Change Eyes: Denies: Blurred vision HEENT: Denies: Head Aches, Sinus Congestion, Sinus Drainage Cardiovascular: Reports: Chest Pain, Orthopnea, Palpitations, Paroxysmal Noc. Dyspnea. Denies: Chest Pressure, Chest Tightness, Edema, Heaviness, Light Headedness, Syncope Respiratory: Reports: Shortness of Breath, Shortness of breath at rest, Shortness of breath upon exertion. Denies: Cough, Sputum production, Wheezing Gastrointestinal: Denies: Abdominal Pain, Nausea, Vomiting Genitourinary: Denies: Dysuria Musculoskeletal: Denies: Joint Pain, Joint Tenderness Skin: Denies: Rash, Wounds Neurological: Denies: Numbness, Tingling, Focal weakness Psychiatric: Denies: Anxiety, Depression, Homicidal Ideations, Suicidal Ideations Hematologic/ Lymphatic: Denies: Easy Bruising, Easy Bleeding VTE Information - Inpt Only VTE Present on Admission: No VTE Pharm Prophylaxis ordered?: Yes - Physical Exam Vitals/I&O's: Vital Signs Temp Pulse Resp BP Pulse Ox 98.2 F 131 H 20 H 121/88 H 97 09/26/19 11:16 09/26/19 11:16 09/26/19 11:16 09/26/19 11:16 09/26/19 11:16 Oxygen Delivery Method Room Air Weight: 280 lb Body Mass Index (BMI) 42.5 General: Alert, Oriented x3, Cooperative HEENT: Atraumatic, PERRLA, EOMI, Normocephalic Oral: Dry Mucosa Neck: Supple, No JVD, Negative Carotid Bruits Lungs: - - decreased breath sounds bibasally, no wheezes or crackles.. Cardiovascular: Normal S1, Normal S2, No murmurs, Tachycardic Abdomen: Bowel Sounds Present, Soft, Non Tender, Non-Distended, No Hepato-splenomegaly Extremities: No clubbing, No cyanosis, No edema, Capillary Refill Less than 3 Seconds Skin: No rashes, No breakdown Musculoskeletal: No Tenderness to Palpation of Joints or Extremities Lymphatic: No Cervical, Supraclavicular, or Inguinal Adenopathy Neurological: Cranial nerves II-XII grossly intact, Neuro grossly intact, Motor Exam 5/5 strength throughout Psych/Mental Status: Normal Affect, Appropriate, Alert and oriented to time, place, person, mood and affect Laboratory Results 09/26/19 10:15: WBC 6.4, RBC 4.19 L, Hgb 11.5 L, Hct 35.9 L, MCV 85.7, MCH 27.4, MCHC 32.0, RDW Std Deviation 39.8, RDW Coeff of Paula 12.8, Plt Count 396, MPV 8.7, Immature Gran % (Auto) 0.200, Neut % (Auto) 75.0 H, Lymph % (Auto) 9.9 L, [place] % (Auto) 6.7, Eos % (Auto) 8.0 H, Baso % (Auto) 0.2, Absolute Neuts (auto) 4.8, Absolute Lymphs (auto) 0.63 L, Nucleated RBC % 0 09/26/19 10:15: Sodium 139, Potassium 3.7, Chloride 107, Carbon Dioxide 25.0, Anion Gap 7, BUN 12, Creatinine 0.75, Estim Creat Clear Calc 115.67, Est GFR (MDRD) Af Amer 120, Est GFR (MDRD) Non-Af 99, BUN/Creatinine Ratio 16.0, Glucose 131 H, Calcium 8.6, Total Bilirubin 0.80, AST 15, ALT 18, Alkaline Phosphatase 140 H, Troponin I < 0.015, Total Protein 7.6, Albumin 2.8 L, Globulin 4.8 H, Albumin/Globulin Ratio 0.6 L 09/26/19 10:15: B-Natriuretic Peptide 22.8 09/26/19 10:15: TSH 0.82 Diagnostic Data Chest X-Ray 09/26/19 10:10 IMPRESSION: Normal x-ray examination of the chest. Previously seen right pleural effusion has decreased. Electronically Signed: Geovanna Horton, at 11:21 EDT Tel , Service support , Chest CTA 09/26/19 10:53 IMPRESSION: 1. No central pulmonary embolism or arterial dissection. Small right pleural effusion is new since prior exam. There is interval resolution of the previously seen left pleural effusion. No focal pulmonary consolidation. 2. Stable bilateral axillary and subpectoral adenopathy since 09/16/2018, but increased since 2017. Stable mild subcarinal adenopathy. Consider tissue sampling if not already performed as this is suspicious for infiltrative lymphatic process such as lymphoma. 3. Stable splenomegaly. Electronically Signed: Geovanna Benoitgualberto, at 12:10 EDT Tel , Service support , Assessment/Plan All Active Problems 37 weeks gestation of (Acute) Preeclampsia (Acute) History of DVT (deep vein thrombosis) (Acute) Migraines (Acute) Rheumatoid arthritis (Acute) Idiopathic intracranial hypertension (Acute) Epiploic appendagitis (Acute) Abdominal pain (Acute) Colitis (Acute) Rheumatoid arthritis (Acute) 23 y/o admitted with a complaint of shortness of breath and tachycardia 1. SIRS criteria has 2/4 SIRS criteria (tachycardia and tachypnea). However, there is no evidence of infection. shortness of breath and tachycardia likely related to cardiac pathology. CTA was negative for PE, but showed resolution of previously seen left sided effusion, and small right pleural effusion. CXR showed no acute cardiopulmonary process admit to PCU will check COVID screen in light of the severe shortness of breath get urgent 2D echo o/a of suspicion for post cardiomyopathy titrate oxygen to maintain sats >90%. 2. History of rheumatoid arthritis: on plaquenil and hydroxychloroquine 3. History of PE: on lovenox 40mg daily sc 4. History of Pseudotumor cerebri: stable. DVT prophylaxis; on lovenox Code status: full code Patient counseled extensively about different types of CODE STATUS including full code, DNR CCA and DNR CCA. Patient elects to be full code. Total vvyr-ke-cnth time 16 minutes. OBSV E&M: 89792 Initial observation care L2 Procedures: 49688 Advncd Care Plan 30 Min
--- NOTE | 2019-09-26 12:51 | NURSING ---
PCU SOB, TACHYCARDIA KORAM
--- NOTE | 2019-09-26 13:58 | ED.RN ---
nurse called back to confirm breast milk ok for baby consumption even with ct dye. ob to send breast pump up for pt for admission
--- NOTE | 2019-09-26 13:59 | ED.RN ---
dr bello talked with customer quality specialist regarding pt. advised to watch blood pressures and monitor but no concern for bp treatment at present time
[2019-09-26] MEDS: oxyCODONE 5 MG Tablet PO ×2 (16:01→22:25)
[2019-09-26] MEDS: Ketorolac 30 MG/ML Syringe IV (16:02)
[2019-09-26 16:22] LABS: Probe Check PASS; SARS-COV-2 DNA by PCR Negative (Negative); Specimen Processing Control PASS
--- NOTE | 2019-09-26 16:35 | ECHOD_ITS ---
Reason For Study: SOB Procedure This was a 2D Doppler, Color Flow transthoracic echocardiogram. The study was technically difficult. Exam performed portable in patient room. Left Ventricle Normal LV size. The estimated ejection fraction is 55-60 %. No evidence for diastolic dysfunction. No regional wall motion abnormalities noted. Right Ventricle Normal RV size. Normal systolic function. Atria Normal left atrium. Normal right atrium. No doppler evidence for ASD. Mitral Valve There is no mitral valve stenosis. Trivial mitral valve insufficiency. Tricuspid Valve There is no tricuspid stenosis. Mild tricuspid valve insufficiency. Pulmonary artery systolic pressure is 25-30 mmHg. Aortic Valve Trisinus/trileaflet aortic valve. There is no aortic stenosis. No aortic valve insufficiency. Pulmonic Valve There is no pulmonic valvular stenosis. No pulmonic valve insufficiency. Great Vessels Normal aortic root. Pericardium/Pleural No pericardial effusion. Medication Definity deferred- pt is post and breast feeding. MMode/2D Measurements & Calculations LVIDd: 5.3 cm IVSd: 1.1 cm Ao root diam: 3.0 cm LVIDs: 3.8 cm LVPWd: 0.86 cm RVDd: 3.9 cm FS: 28.6 % LAV(MOD-bp): 47.9 ml LA A4 area: 17.6 cm2 LA dimension(2D): 4.0 cm LAV(MOD-bp) Indexed: 20.4 ml/m2 LAV(MOD-sp2): 44.0 ml LAV(MOD-sp4): 48.1 ml RA A4 area: 17.1 cm2 Doppler Measurements & Calculations MV E max ye: 87.3 cm/sec Lat Peak E' Ye: 15.4 cm/sec Med Peak E' Ye: 11.5 cm/sec MV A max ye: 79.7 cm/sec E/E' lat: 5.7 E/E' med: 7.6 MV E/A: 1.1 Ao V2 max: 154.2 cm/sec LV V1 max: 117.3 cm/sec TR max ye: 232.9 cm/sec Ao max P.5 mmHg LV V1 max P.5 mmHg TR max P.7 mmHg Interpretation Summary The estimated ejection fraction is 55-60 %. No evidence for diastolic dysfunction. Trivial mitral valve insufficiency. Mild tricuspid valve insufficiency. Ordering Physician: Tete Loyola Referring Physician: FLORENCE BALDWIN Performed By: Kayla Green, YAA, RVT
[2019-09-26] MEDS: Hydroxychloroquine 200 MG Tablet PO (18:40)
[2019-09-26] MEDS: Enoxaparin 40 MG/0.4 ML Syringe SC (21:29)
--- NOTE | 2019-09-26 21:29 | PCM.PN.BLA ---
Progress Note The patient is . She pumps her breast milk. Reportedly she was given a Toradol and oxycodone at the emergency department. Nurse reported patient is having severe pain. Pain is at the chest and it increases with taking a deep breath, likely pleuritic. Oxycodone IR PRN ordered. Discussed with nurse to administer oxycodone; if possible; just after patient has finished pumping breastmilk and to avoid pumping breastmilk within 6 hours after oxycodone administration. STROKE Vital Signs/Narrative: Vital Signs Pulse 0520/20 19:00 118 H
[2019-09-27] VITALS (10 sets, daily range): BP systolic 109–137; BP diastolic 63–73; PULSE 94–123; RESP 14–18; TEMP 36.7–37.3; O2SAT 96–100
[2019-09-27] MEDS: oxyCODONE 5 MG Tablet PO (01:06)
[2019-09-27] MEDS: 0.9% Saline Lock 10 ML Syringe IV ×4 (02:23→21:09)
[2019-09-27] MEDS: Ondansetron 4 MG/2 ML Vial IV (02:23)
[2019-09-27] MEDS: Ketorolac 15 MG/ML Vial IV ×3 (03:51→21:09)
[2019-09-27 07:00] LABS: Absolute Lymphocyte Count 0.87 X10^3/uL (0.83-4.51); Absolute Neutrophil Count 3.8 X10^3/uL (2.0-7.7); Basophil# 0.02 X10^3/uL; Basophil% 0.3 % (0-1); Eosinophil# 0.89 X10^3/uL; Eosinophils% 14.5 % (0-5); Hematocrit 33.3 % (37-47); Hemoglobin 10.7 g/dL (12.0-15.0); Lymphocyte # 0.87 X10^3/ul (4.0); Lymphocyte % 14.2 % (19-41); Mean Corp Hgb Conc 32.1 g/dL (32-36); Mean Corpuscular Hgb 27.5 pg (27.0-32.0); Mean Corpuscular Volume 85.6 fL (81-99); Mean Platelet Vol. 8.9 fl (6.2-12.0); Monocyte# 0.51 X10^3/uL; Monocyte% 8.3 % (0-10); NRBC Flagged by Analyzer 0 % (0-5); Neutrophil # 3.79 X10^3/uL (2.7-7.7); Platelet Count 375 K/mm3 (150-450); RBC Distribution Width SD 40.5 fl (35.1-43.9); Red Blood Count 3.89 M/mm3 (4.2-5.4); White Blood Count 6.1 K/mm3 (4.4-11.0)
[2019-09-27 07:21] LABS: Anion Gap 5 (5-15); BUN 12 mg/dL (7-18); BUN/Creat Ratio 18.6 RATIO (10-20); Calcium,Total 8.3 mg/dL (8.5-10.1); Chloride 107 mmol/L (98-107); Creatinine, Serum 0.64 mg/dL (0.55-1.02); EST Glomerular Filtration Rate 118 mL/min (>60); Est Glom Filt Rate - Afr Amer 143 mL/min (>60); Estimated Creatinine Clearance 135.55 ml/min; Glucose 95 mg/dL (74-106); Potassium 3.6 mmol/L (3.5-5.1); Sodium Level 138 mmol/L (136-145)
[2019-09-27] MEDS: Hydroxychloroquine 200 MG Tablet PO ×2 (08:46→16:53)
[2019-09-27] MEDS: Acetaminophen 325 MG Tablet 650 MG PO (12:45)
--- NOTE | 2019-09-27 13:27 | PCM.PROGNOTE ---
<Yonaa Joshi - Last Filed: 09/27/19 13:35> Subjective: Patient seen and examined. Reports improvement in shortness of breath. Reports left-sided chest discomfort with taking deep breaths. Denies fever, chills. Denies cough. Denies other associated complaints. - Physical Exam Vitals/I&O's: Vital Signs Temp Pulse Resp BP Pulse Ox 99.1 F 116 H 16 129/70 H 99 09/27/19 10:36 09/27/19 10:36 09/27/19 10:36 09/27/19 10:36 09/27/19 10:36 Oxygen Delivery Method Room Air Weight: 283 lb 11.759 oz Body Mass Index (BMI) 43.1 Intake and Output for Last 24 Hours 09/25/19 09/26/19 09/27/19 23:59 23:59 23:59 Intake Total 540 / 540 440 / 440 Balance 540 / 540 440 / 440 General: Alert, Oriented x3, Cooperative HEENT: Atraumatic, PERRLA, EOMI, Normocephalic Neck: Supple, No JVD, Negative Carotid Bruits Lungs: Clear to auscultation, Normal air movement Cardiovascular: Regular rate, Regular Rhythm, Normal S1, Normal S2, No murmurs Abdomen: Bowel Sounds Present, Soft, Non Tender, Non-Distended Extremities: No clubbing, No cyanosis, No edema, Capillary Refill Less than 3 Seconds Skin: No rashes, No breakdown Musculoskeletal: No Tenderness to Palpation of Joints or Extremities Neurological: Cranial nerves II-XII grossly intact, Neuro grossly intact Psych/Mental Status: Normal Affect, Appropriate Laboratory Results 09/26/19 13:37: COVID-19 (RUBEN) Negative 09/27/19 06:29: WBC 6.1, RBC 3.89 L, Hgb 10.7 L, Hct 33.3 L, MCV 85.6, MCH 27.5, MCHC 32.1, RDW Std Deviation 40.5, RDW Coeff of Paula 13.0, Plt Count 375, MPV 8.9, Immature Gran % (Auto) 0.700, Neut % (Auto) 62.0, Lymph % (Auto) 14.2 L, [place] % (Auto) 8.3, Eos % (Auto) 14.5 H, Baso % (Auto) 0.3, Absolute Neuts (auto) 3.8, Absolute Lymphs (auto) 0.87, Nucleated RBC % 0 09/27/19 06:29: Sodium 138, Potassium 3.6, Chloride 107, Carbon Dioxide 26.0, Anion Gap 5, BUN 12, Creatinine 0.64, Estim Creat Clear Calc 135.55, Est GFR (MDRD) Af Amer 143, Est GFR (MDRD) Non-Af 118, BUN/Creatinine Ratio 18.6, Glucose 95, Calcium 8.3 L Current Medications Acetaminophen (Tylenol) 650 mg PO Q6H PRN PRN PRN Reason: Pain Score 1-10/Temp > 100.7 F Last Admin: 09/27/19 12:45 Dose: 650 mg Documented by: Albuterol Sulfate (Ventolin Aerosols) 2.5 mg INHALATION Q4H PRN PRN PRN Reason: Wheezing Dextrose (D50w Syringe) 0 gm IV X1 PRN; Protocol PRN Reason: Hypoglycemia Enoxaparin Sodium (Lovenox) 40 mg SC QHS COUNTS INCLUDE 234 BEDS AT THE [facility] Last Admin: 09/26/19 21:29 Dose: 40 mg Documented by: Glucagon () 1 mg IM .X1 PRN PRN Reason: Hypoglycemia Hydroxychloroquine Sulfate (Plaquenil) 200 mg PO BIDCM COUNTS INCLUDE 234 BEDS AT THE [facility] Last Admin: 09/27/19 08:46 Dose: 200 mg Documented by: Sodium Chloride () 250 mls @ 15 mls/hr IV .[id number] PRN PRN Reason: Saline Flush Sodium Chloride () 250 mls @ 15 mls/hr IV .[id number] PRN PRN Reason: Additional IVPB Infusion Ketorolac Tromethamine (Toradol (Bkc)) 15 mg IV Q8 COUNTS INCLUDE 234 BEDS AT THE [facility] Stop: 10/02/19 04:02 Last Admin: 09/27/19 13:18 Dose: 15 mg Documented by: Magnesium Oxide (Mag-Ox 400) 400 mg PO DAILY PRN PRN Reason: migraines Metoclopramide HCl (Reglan) 10 mg PO DAILY PRN PRN Reason: migraines Nitroglycerin (Nitrostat) 0.4 mg SUBLINGUAL Q5M PRN PRN Reason: CARDIAC/CHEST PAIN Ondansetron HCl (Zofran) 4 mg IV Q8H PRN PRN PRN Reason: NAUSEA/VOMITING Last Admin: 09/27/19 02:23 Dose: 4 mg Documented by: Oxycodone HCl (Oxyir) 10 mg PO Q6H PRN PRN PRN Reason: Pain Score 6-10/10 Sodium Chloride () 10 - 40 ml IV UD PRN PRN Reason: SALINE FLUSH Last Admin: 09/27/19 13:19 Dose: 20 ml Documented by: Medical Necessity - Tobacco Use Smoking Status: Never smoker Assessment/Plan All Active Problems 37 weeks gestation of (Acute) Preeclampsia (Acute) History of DVT (deep vein thrombosis) (Acute) Migraines (Acute) Rheumatoid arthritis (Acute) Idiopathic intracranial hypertension (Acute) Epiploic appendagitis (Acute) Abdominal pain (Acute) Colitis (Acute) Rheumatoid arthritis (Acute) 1. Tachycardia, tachypnea-chest CTA shows no PE, small right pleural effusion. Left pleural effusion resolved. Echocardiogram demonstrates an EF of 55 to 60%. COVID-19 negative. Patient reports left-sided chest discomfort with taking deep breaths. On IV Toradol. Monitor overnight. 2. History of PE-CTA without PE as noted above. On Lovenox. 3. History of rheumatoid arthritis-on Plaquenil and hydrochloroquine. 4. History of pseudotumor cerebri-stable. 5. Recent section 09/03/2019 6. Acute on chronic normocytic anemia-stable. DVT prophylaxis-Lovenox subcu This patient was seen by LUCRETIA Singer under the supervision of Dr. Loyola. <Tete Loyola - Last Filed: 09/27/19 15:47> - Physical Exam Vitals/I&O's: Vital Signs Temp Pulse Resp BP Pulse Ox 99.1 F 116 H 16 129/70 H 99 09/27/19 10:36 09/27/19 10:36 09/27/19 10:36 09/27/19 10:36 09/27/19 10:36 Oxygen Delivery Method Room Air Weight: 283 lb 11.759 oz Body Mass Index (BMI) 43.1 Intake and Output for Last 24 Hours 09/25/19 09/26/19 09/27/19 23:59 23:59 23:59 Intake Total 540 / 540 440 / 440 Balance 540 / 540 440 / 440 Laboratory Results 09/26/19 13:37: COVID-19 (RUBEN) Negative 09/27/19 06:29: WBC 6.1, RBC 3.89 L, Hgb 10.7 L, Hct 33.3 L, MCV 85.6, MCH 27.5, MCHC 32.1, RDW Std Deviation 40.5, RDW Coeff of Paula 13.0, Plt Count 375, MPV 8.9, Immature Gran % (Auto) 0.700, Neut % (Auto) 62.0, Lymph % (Auto) 14.2 L, [place] % (Auto) 8.3, Eos % (Auto) 14.5 H, Baso % (Auto) 0.3, Absolute Neuts (auto) 3.8, Absolute Lymphs (auto) 0.87, Nucleated RBC % 0 09/27/19 06:29: Sodium 138, Potassium 3.6, Chloride 107, Carbon Dioxide 26.0, Anion Gap 5, BUN 12, Creatinine 0.64, Estim Creat Clear Calc 135.55, Est GFR (MDRD) Af Amer 143, Est GFR (MDRD) Non-Af 118, BUN/Creatinine Ratio 18.6, Glucose 95, Calcium 8.3 L Current Medications Acetaminophen (Tylenol) 650 mg PO Q6H PRN PRN PRN Reason: Pain Score 1-10/Temp > 100.7 F Last Admin: 09/27/19 12:45 Dose: 650 mg Documented by: Albuterol Sulfate (Ventolin Aerosols) 2.5 mg INHALATION Q4H PRN PRN PRN Reason: Wheezing Dextrose (D50w Syringe) 0 gm IV X1 PRN; Protocol PRN Reason: Hypoglycemia Enoxaparin Sodium (Lovenox) 40 mg SC QHS COUNTS INCLUDE 234 BEDS AT THE [facility] Last Admin: 09/26/19 21:29 Dose: 40 mg Documented by: Glucagon () 1 mg IM .X1 PRN PRN Reason: Hypoglycemia Hydroxychloroquine Sulfate (Plaquenil) 200 mg PO BIDCM COUNTS INCLUDE 234 BEDS AT THE [facility] Last Admin: 09/27/19 08:46 Dose: 200 mg Documented by: Sodium Chloride () 250 mls @ 15 mls/hr IV .[id number] PRN PRN Reason: Saline Flush Sodium Chloride () 250 mls @ 15 mls/hr IV .[id number] PRN PRN Reason: Additional IVPB Infusion Ketorolac Tromethamine (Toradol (Bkc)) 15 mg IV Q8 COUNTS INCLUDE 234 BEDS AT THE [facility] Stop: 10/02/19 04:02 Last Admin: 09/27/19 13:18 Dose: 15 mg Documented by: Magnesium Oxide (Mag-Ox 400) 400 mg PO DAILY PRN PRN Reason: migraines Metoclopramide HCl (Reglan) 10 mg PO DAILY PRN PRN Reason: migraines Nitroglycerin (Nitrostat) 0.4 mg SUBLINGUAL Q5M PRN PRN Reason: CARDIAC/CHEST PAIN Ondansetron HCl (Zofran) 4 mg IV Q8H PRN PRN PRN Reason: NAUSEA/VOMITING Last Admin: 09/27/19 02:23 Dose: 4 mg Documented by: Oxycodone HCl (Oxyir) 10 mg PO Q6H PRN PRN PRN Reason: Pain Score 6-10/10 Sodium Chloride () 10 - 40 ml IV UD PRN PRN Reason: SALINE FLUSH Last Admin: 09/27/19 13:19 Dose: 20 ml Documented by: Assessment/Plan Patient seen by Yoana Joshi PA-C under my supervision Patient seen and examined today. She still complains of left-sided chest pain but it has improved after she is given Toradol. Shortness of breath is also improved. She denies any fever or chills, palpitations, nausea vomiting or diarrhea. Review of symptoms otherwise negative. o/e: Vital Signs Temp Pulse Resp BP Pulse Ox 99.1 F 116 H 16 129/70 H 99 09/27/19 10:36 09/27/19 10:36 09/27/19 10:36 09/27/19 10:36 09/27/19 10:36 General: Alert, Oriented x3, Cooperative HEENT: Atraumatic, PERRLA, EOMI, Normocephalic Neck: Supple, No JVD, Negative Carotid Bruits Lungs: Clear to auscultation, Normal air movement Cardiovascular: Regular rate, Regular Rhythm, Normal S1, Normal S2, No murmurs Abdomen: Bowel Sounds Present, Soft, Non Tender, Non-Distended Extremities: No clubbing, No cyanosis, No edema, Capillary Refill Less than 3 Seconds Skin: No rashes, No breakdown Musculoskeletal: No Tenderness to Palpation of Joints or Extremities Neurological: Cranial nerves II-XII grossly intact, Neuro grossly intact Psych/Mental Status: Normal Affect, Appropriate 2D echo done today showed EF of 55% to 60% with no evidence of diastolic dysfunction no regional wall motion abnormalities noted. Pulmonary artery systolic pressure is 25 to 30 mmHg. It is not clear the exact cause of her pain as CTA was negative for any PE and 2D echo is also not showing any pathology. We will continue with IV Toradol for now. Patient has agreed to pump and dump breastmilk on account of her being on IV Toradol. For possible discharge tomorrow. Rest as per Yoana Joshi's note, which I have reviewed and endorsed. OBSV E&M: [id number] Subsequent observation care L2
[2019-09-27] MEDS: Enoxaparin 40 MG/0.4 ML Syringe SC (21:09)
[2019-09-27] MEDS: oxyCODONE 5 MG Tablet 10 MG PO (21:10)
[2019-09-28 02:58] VITALS: PULSE 102
[2019-09-28 03:00] VITALS: BP 122/64; PULSE 108; RESP 12; TEMP 37; O2SAT 98
[2019-09-28] MEDS: oxyCODONE 5 MG Tablet 10 MG PO ×2 (05:03→11:19)
[2019-09-28] MEDS: Ketorolac 15 MG/ML Vial IV (05:03)
[2019-09-28] MEDS: Senna/Docusate Sodium 1 Tablet 2 TABLET PO ×2 (05:07→11:20)
[2019-09-28 07:00] VITALS: PULSE 106
[2019-09-28 07:13] LABS: Hematocrit 32.8 % (37-47); Hemoglobin 10.3 g/dL (12.0-15.0); Mean Corp Hgb Conc 31.4 g/dL (32-36); Mean Corpuscular Hgb 26.8 pg (27.0-32.0); Mean Corpuscular Volume 85.4 fL (81-99); Platelet Count 368 K/mm3 (150-450); RBC Distribution Width CV 13.2 % (11.6-14.6); RBC Distribution Width SD 40.9 fl (35.1-43.9); Red Blood Count 3.84 M/mm3 (4.2-5.4); White Blood Count 5.5 K/mm3 (4.4-11.0)
[2019-09-28 07:50] VITALS: O2SAT 97
[2019-09-28 08:44] VITALS: BP 116/61; PULSE 102; RESP 16; TEMP 36.6; O2SAT 97
[2019-09-28] MEDS: Hydroxychloroquine 200 MG Tablet PO (08:56)
--- NOTE | 2019-09-28 10:33 | DCINST_ITS ---
You will use the following diet at home:: No restrictions Discharge Activity: Return to Normal Activity Call your doctor if you observe: Shortness of breath, Dizziness, Fainting spells, Chest pain Allergies/Adverse Reactions: Allergies morphine Allergy (Verified 09/26/19 09:56) Hives metronidazole [From Flagyl] Adverse Reaction (Verified 09/26/19 09:56) Hives Medications to take at Discharge Adalimumab [Humira] 40 mg SQ UD 09/30/16 Hydroxychloroquine [Plaquenil] 200 mg PO BID 03/22/18 Enoxaparin Sodium [Lovenox] 40 mg SQ QHS 03/19/19 Albuterol Inhaler [Ventolin Hfa] 1 - 2 puff INHALATION Q4H PRN PRN #1 inhaler 04/16/19 Magnesium Oxide 400 mg PO DAILY PRN PRN 09/03/19 Metoclopramide [Reglan] 10 mg PO DAILY PRN PRN 09/03/19 Ketorolac [Toradol] 10 mg PO Q6H PRN #30 tab 09/28/19 The following prescriptions were given: Ketorolac [Toradol] 10 mg PO Q6H PRN #30 tab PRN Reason: Pain Score 1-10/10 Transmission Status: Pending to [facility] Primary Care Physician: Prema Lechuga MD [Primary Care Provider] - Please follow up with your Primary Care Physician in: 1 Week Test Results: Test results from this visit will be discussed in further detail at your follow- up appointment, if applicable. Please Follow Up With: Estrellita Seay MD When: As scheduled Proposed Discharge Date: 09/28/19
--- NOTE | 2019-09-28 10:34 | PCM.DC.SUM ---
<Yoana Joshi - Last Filed: 09/28/19 11:07> Discharge Date and Diagnosis Date of Admission: 09/26/19 Date of Discharge: 09/28/19 - Primary Discharge Diagnosis Acute Problems: 1. Pleuritic chest pain, dyspnea 2. History of PE 3. History of rheumatoid arthritis 4. History of pseudotumor cerebri 5. Recent section 09/03/2019 6. Acute on chronic normocytic anemia - Secondary Discharge Diagnosis Chronic Problems: Chronic Problems BMI 40.0-44.9, adult (Chronic) Hospital Course and Treatment Imaging Results: Diagnostic Data Chest X-Ray 09/26/19 10:10 IMPRESSION: Normal x-ray examination of the chest. Previously seen right pleural effusion has decreased. Electronically Signed: Geovanna Horton at 11:21 EDT Tel , Service support , Chest CTA 09/26/19 10:53 IMPRESSION: 1. No central pulmonary embolism or arterial dissection. Small right pleural effusion is new since prior exam. There is interval resolution of the previously seen left pleural effusion. No focal pulmonary consolidation. 2. Stable bilateral axillary and subpectoral adenopathy since 09/16/2018, but increased since 2017. Stable mild subcarinal adenopathy. Consider tissue sampling if not already performed as this is suspicious for infiltrative lymphatic process such as lymphoma. 3. Stable splenomegaly. Electronically Signed: Geovanna Horton at 12:10 EDT Tel , Service support , Operations: None Procedures: 2-D Echocardiogram Summary of Care Provided: The patient is a 23 year old F who presented to the emergency room 09/26/2019 due to shortness of breath and chest pain. 1. Pleuritic chest pain, dyspnea-chest CTA shows no PE, small right pleural effusion. Left pleural effusion resolved. Echocardiogram demonstrates an EF of 55 to 60%. COVID-19 negative. Patient reports left-sided chest discomfort with taking deep breaths. Pain improved with IV Toradol. Discussed with OB, will discharge on Toradol as needed for pain and patient may continue to breast-feed. Continue incentive spirometer. Follow-up with PCP and OB in 1 week. 2. History of PE-CTA without PE as noted above. 3. History of rheumatoid arthritis-on Plaquenil and hydrochloroquine. 4. History of pseudotumor cerebri-stable. 5. Recent section 09/03/2019 6. Acute on chronic normocytic anemia-stable. General: Alert, Oriented x3, Cooperative HEENT: Atraumatic, PERRLA, EOMI, Normocephalic Neck: Supple, No JVD, Negative Carotid Bruits Lungs: Clear to auscultation, Normal air movement Cardiovascular: Regular rate, Regular Rhythm, Normal S1, Normal S2, No murmurs Abdomen: Bowel Sounds Present, Soft, Non Tender, Non-Distended Extremities: No clubbing, No cyanosis, No edema, Capillary Refill Less than 3 Seconds Skin: No rashes, No breakdown Musculoskeletal: No Tenderness to Palpation of Joints or Extremities Neurological: Cranial nerves II-XII grossly intact, Neuro grossly intact Psych/Mental Status: Normal Affect, Appropriate Patient seen and examined prior to discharge. Physical assessment as noted above. Patient is stable for discharge with follow up recommendations as noted above. This patient was seen by LUCRETIA Singer under the supervision of Dr. Loyola. - Physical Exam Vitals/I&O's: Vital Signs Temp Pulse Resp BP Pulse Ox 97.9 F 102 H 16 116/61 97 09/28/19 08:44 09/28/19 08:44 09/28/19 08:44 09/28/19 08:44 09/28/19 08:44 Oxygen Delivery Method Room Air Weight: 283 lb 11.759 oz Body Mass Index (BMI) 43.1 Intake and Output for Last 24 Hours 09/26/19 09/27/19 09/28/19 23:59 23:59 23:59 Intake Total 540 / 540 2400 / 2400 Balance 540 / 540 2400 / 2400 Laboratory Results 09/28/19 06:14: WBC 5.5, RBC 3.84 L, Hgb 10.3 L, Hct 32.8 L, MCV 85.4, MCH 26.8 L, MCHC 31.4 L, RDW Std Deviation 40.9, RDW Coeff of Paula 13.2, Plt Count 368, MPV 9.0 Current Medications Acetaminophen (Tylenol) 650 mg PO Q6H PRN PRN PRN Reason: Pain Score 1-10/Temp > 100.7 F Last Admin: 09/27/19 12:45 Dose: 650 mg Documented by: Albuterol Sulfate (Ventolin Aerosols) 2.5 mg INHALATION Q4H PRN PRN PRN Reason: Wheezing Dextrose (D50w Syringe) 0 gm IV X1 PRN; Protocol PRN Reason: Hypoglycemia Enoxaparin Sodium (Lovenox) 40 mg SC QHS [facility] Last Admin: 09/27/19 21:09 Dose: 40 mg Documented by: Glucagon () 1 mg IM .X1 PRN PRN Reason: Hypoglycemia [facility] Last Admin: 09/28/19 08:56 Dose: 200 mg Documented by: Sodium Chloride () 250 mls @ 15 mls/hr IV .[id number] PRN PRN Reason: Saline Flush Sodium Chloride () 250 mls @ 15 mls/hr IV .[id number] PRN PRN Reason: Additional IVPB Infusion Ketorolac Tromethamine (Toradol (Bkc)) 15 mg IV Q8 [facility] Stop: 10/02/19 04:02 Last Admin: 09/28/19 05:03 Dose: 15 mg Documented by: Magnesium Oxide (Mag-Ox 400) 400 mg PO DAILY PRN PRN Reason: migraines Metoclopramide HCl (Reglan) 10 mg PO DAILY PRN PRN Reason: migraines Nitroglycerin (Nitrostat) 0.4 mg SUBLINGUAL Q5M PRN PRN Reason: CARDIAC/CHEST PAIN Ondansetron HCl (Zofran) 4 mg IV Q8H PRN PRN PRN Reason: NAUSEA/VOMITING Last Admin: 09/27/19 02:23 Dose: 4 mg Documented by: Oxycodone HCl (Oxyir) 10 mg PO Q6H PRN PRN PRN Reason: Pain Score 6-10/10 Last Admin: 09/28/19 05:03 Dose: 10 mg Documented by: Senna/Docusate Sodium (Senokot-S, Aster-Colace) 2 tablet PO BID PRN PRN PRN Reason: Constipation Last Admin: 09/28/19 05:07 Dose: 2 tablet Documented by: Sodium Chloride () 10 - 40 ml IV UD PRN PRN Reason: SALINE FLUSH Last Admin: 09/27/19 21:09 Dose: 10 ml Documented by: Discharge Diet: No Restrictions Discharge Activity: Return to Normal Activity Call your doctor if you observe: Shortness of breath, Dizziness, Fainting spells, Chest pain Home Medications: Medications to take at Discharge Adalimumab [Humira] 40 mg SQ UD 09/30/16 Hydroxychloroquine [Plaquenil] 200 mg PO BID 03/22/18 Enoxaparin Sodium [Lovenox] 40 mg SQ QHS 03/19/19 Albuterol Inhaler [Ventolin Hfa] 1 - 2 puff INHALATION Q4H PRN PRN #1 inhaler 04/16/19 Magnesium Oxide 400 mg PO DAILY PRN PRN 09/03/19 Metoclopramide [Reglan] 10 mg PO DAILY PRN PRN 09/03/19 Ketorolac [Toradol] 10 mg PO Q6H PRN #30 tab 09/28/19 Following Prescrptions Were Given to Patient: Ketorolac [Toradol] 10 mg PO Q6H PRN #30 tab PRN Reason: Pain Score 1-10/10 Transmission Status: Received by [facility] Primary Care Physician: Prema Lechuga MD [Primary Care Provider] - Please follow up with your Primary Care Physician in: 1 Week Please Follow Up With: Estrellita Seay MD When: As scheduled Disposition: Home Minutes spent on discharge:: 35 Patient Condition:: Stable Medical Necessity - Tobacco Use Smoking Status: Never smoker Meaningful Use Info Meaningful Use Diagnoses (Choose all that apply): None applicable <Tete Loyola - Last Filed: 09/28/19 13:56> Discharge Date and Diagnosis - Secondary Discharge Diagnosis Chronic Problems: Chronic Problems BMI 40.0-44.9, adult (Chronic) Hospital Course and Treatment Summary of Care Provided: Patient seen by Yoana BOYKIN under my supervision The patient is a 23 year old F who recently had a second delivery by section on September 02, 2018. She was admitted through the ED on 09/26/2019 with a complaint of chest pain and shortness of breath. course was complicated by left-sided pleural effusion and she is developed shortness of breath afterwards. However this subsequently improved. However over the past few days shortness of breath has been getting worse with associated chest pain. Chest pain is left-sided, pleuritic in nature and aggravated by breathing in and out. And had no relieving factors. She also had associated orthopnea and PND but denied any lower extremity swelling. She had not had such symptoms in the past. She does have a history of rheumatoid arthritis and fibromyalgia. She is on adalimumab and also has a history of PE and so was on Lovenox 40 mg daily. On admission in the ED, vitals were significant for heart rate of 131 with respiratory rate of 20 and blood pressure of 121/88. Temperature was 98.2 Fahrenheit. She was saturating at 97% on room air. Chemistry was essentially unremarkable. TSH was 0.82. CBC showed hemoglobin of 11.5 with WBC of 6.4 and platelets of 396. Chest x-ray done showed decrease in previously seen right-sided pleural effusion but there was no other acute cardiopulmonary process. And she had bilateral axillary and subpectoral adenopathy unchanged and measurement. CTA of the chest was done which was negative for any PE and showed a small right pleural effusion with interval resolution of the previously seen left pleural effusion and showed no focal pulmonary consolidation and showed stable bilateral axillary and subpectoral adenopathy since 09/16/2018 which had increased since 2017, and stable splenomegaly. BNP was 22. She was admitted to be managed for chest pain and shortness of breath of unclear etiology. She was treated with IV pain meds namely IV morphine and IV Toradol. However it seemed like only IV Toradol worked for her pain. She had COVID test done which was negative. 2D echo was done which showed EF of 55% to 60% with no evidence of diastolic dysfunction no regional wall motion abnormalities noted. The cause of her pain was therefore not clear as CTA showed no acute pathology and 2D echo was also normal. Pain improved with IV Toradol and patient improved significantly. She was discharged home on 09/28/2019. Per discussion had with obstetrics, patient could be discharged home on Toradol. Patient was discharged home with p.o. 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 Patient seen and examined prior to discharge. She felt much better and had no active complaints. Otherwise negative. Labs and vitals reviewed. Home medications reviewed and reconciled. O/E: Vital Signs Temp Pulse Resp BP Pulse Ox 97.9 F 102 H 16 116/61 97 09/28/19 08:44 09/28/19 08:44 09/28/19 08:44 09/28/19 08:44 09/28/19 08:44 ] General: Alert, Oriented x3, Cooperative HEENT: Atraumatic, PERRLA, EOMI, Normocephalic Neck: Supple, No JVD, Negative Carotid Bruits Lungs: Clear to auscultation, Normal air movement Cardiovascular: Regular rate, Regular Rhythm, Normal S1, Normal S2, No murmurs Abdomen: Bowel Sounds Present, Soft, Non Tender, Non-Distended Extremities: No clubbing, No cyanosis, No edema, Capillary Refill Less than 3 Seconds Skin: No rashes, No breakdown Musculoskeletal: No Tenderness to Palpation of Joints or Extremities Neurological: Cranial nerves II-XII grossly intact, Neuro grossly intact Psych/Mental Status: Normal Affect, Appropriate Plan is for discharge home today. Rest as per Yoana Joshi's note, which I have reviewed and reconciled. - Physical Exam Vitals/I&O's: Vital Signs Temp Pulse Resp BP Pulse Ox 97.9 F 102 H 16 116/61 97 09/28/19 08:44 09/28/19 08:44 09/28/19 08:44 09/28/19 08:44 09/28/19 08:44 Oxygen Delivery Method Room Air Weight: 283 lb 11.759 oz Body Mass Index (BMI) 43.1 Intake and Output for Last 24 Hours 09/26/19 09/27/19 09/28/19 23:59 23:59 23:59 Intake Total 540 / 540 2400 / 2400 600 / 600 Balance 540 / 540 2400 / 2400 600 / 600 Laboratory Results 09/28/19 06:14: WBC 5.5, RBC 3.84 L, Hgb 10.3 L, Hct 32.8 L, MCV 85.4, MCH 26.8 L, MCHC 31.4 L, RDW Std Deviation 40.9, RDW Coeff of Paula 13.2, Plt Count 368, MPV 9.0 OBSV E&M: [id number] Observation care discharge
--- NOTE | 2019-09-28 10:50 | PHA.DC.MR ---
Pharmacy Service has performed discharge medication reconciliation for this patient. The patient's discharge medication list was reviewed for discrepancies and discrepancies were resolved. Home Medications Adalimumab [Humira] 40 mg SQ UD 09/30/16 Hydroxychloroquine [Plaquenil] 200 mg PO BID 03/22/18 Enoxaparin Sodium [Lovenox] 40 mg SQ QHS 03/19/19 Albuterol Inhaler [Ventolin Hfa] 1 - 2 puff INHALATION Q4H PRN PRN #1 inhaler 04/16/19 Magnesium Oxide 400 mg PO DAILY PRN PRN 09/03/19 Metoclopramide [Reglan] 10 mg PO DAILY PRN PRN 09/03/19
== END 2019-09-28 10:33 | disposition home or self-care (01) ==
LOC: ED 11:29 → PCU 13:04
PROVIDERS: Nurse Practitioner Family; Admitting Provider Student in an Organized Health Care Education/Training Program; Emergency Provider Emergency Medicine; PCP Family Medicine; Visit Provider Student in an Organized Health Care Education/Training Program
DX: R07.89 Other chest pain (principal); R06.00 Dyspnea, unspecified; M06.9 Rheumatoid arthritis, unspecified; G93.2 Benign intracranial hypertension; M79.7 Fibromyalgia; D64.9 Anemia, unspecified; Z79.01 Long term (current) use of anticoagulants; Z86.711 Personal history of pulmonary embolism; Z79.899 Other long term (current) drug therapy
CPT/HCPCS: 36415; 71045; 71275; 80048; 80053; 83880; 84443; 84484; 85025; 85027; 87635; 93005; 93306; 94799; 96372; 96374; 96375; 96376; 97802; 99218; 99251; 99284; G2023; Q9967; A4216; G0378; G0463; J2405; U0004

== ENCOUNTER 2021-01-04 15:32 | Emergency (ER) | payer MEDICAID, SELFPAY ==
[2021-01-04 15:33] VITALS: BP 142/81; PULSE 82; RESP 16; TEMP 36.4; O2SAT 100; BMI 41.0
--- NOTE | 2021-01-04 16:03 | EKG12_ITS ---
Test Reason : CHEST OTHER Blood Pressure : / mmHG Vent. Rate : 091 BPM Atrial Rate : 091 BPM P-R Int : 132 ms QRS Dur : 092 ms QT Int : 366 ms P-R-T Axes : 035 055 041 degrees QTc Int : 450 ms Normal sinus rhythm Normal ECG Confirmed by HERMES JOSE, JESUS ([id number]), legal editor JABIER GALINDO ([id number]) on 01/07/2021 9:48:55 AM Referred By: JORGE Confirmed By:JESUS MIRZA MD
--- NOTE | 2021-01-04 16:03 | CT_ITS ---
STUDY: CTA CHEST REASON FOR EXAM: Female, 25 years old. Chest pain RADIATION DOSAGE (If Supplied By Facility): CTDIvol = ( 12.66 ) mGy, DLP = ( 420.23 ) mGycm TECHNIQUE: The examination was performed with the intravenous administration of IV 100mL Isovue-370. Post-processing of the angiographic images was performed, with multiplanar reformation and 3D reconstruction. Individualized dose optimization techniques were used for this CT. COMPARISON: None. FINDINGS: Normal enhancement of the main pulmonary artery and right and left pulmonary arteries. Normal enhancement of the bilateral peripheral pulmonary arteries. There is no demonstrated pulmonary embolism. Normal thoracic aorta and visualized great vessels. There is no demonstrated aortic dissection. Heart size is normal. Small pericardial effusion. Residual thymic tissue in the anterior mediastinum. Normal hilar regions. Normal visualized trachea and bronchi. The lungs are well expanded. Mild atelectasis in the left lung base. Normal pleura. Normal chest wall structures. Normal osseous structures. Normal visualized upper abdomen. CT/CTA Chest W/WO Contrast IMPRESSION: 1. No central or segmental pulmonary embolism. 2. Small pericardial effusion. Electronically Signed: Jesus Gold MD ([place]oks) at 17:24 EDT , Service support ,
[2021-01-04] MEDS: Aspirin 81 MG TAB.CHEW 324 MG PO (16:25)
[2021-01-04] MEDS: traMADol 50 MG Tablet PO (16:25)
--- NOTE | 2021-01-04 16:25 | ED.VIS.CHEST ---
HPI History of Present Illness Chief Complaint: Chest Other Narrative Narrative: 25-year-old female presenting with left-sided chest pain which she describes in the left upper chest wall. She states this hurts with direct palpation as well as with movement. She denies any cardiac history. Patient does state that she has a history of DVT and PE in the past and was previously on Lovenox. She states this was attributed to her lupus. This has been years. She states that that time she had pain on deep inspiration and this feels different. She does not specifically feel short of breath. She took ibuprofen yesterday for the pain which did help however today it is hurting again and the ibuprofen did not help. Patient states the pain is been there constantly for 2-1/2 days. She denies fever or chills. She denies cough. PFSH PFSH Home Medications hydroxychloroquine 200 mg PO BID 03/22/18 [History Last Taken 09/26/19] norethindrone (contraceptive) [Incassia] 0.35 mg PO DAILY 01/04/21 [History Last Taken Unknown] trazodone 100 mg PO DAILY 01/04/21 [History Last Taken Unknown] Allergy/AdvReac Type Severity Reaction Status Date / Time morphine Allergy Hives Verified 01/04/21 15:37 metronidazole [From Flagyl] AdvReac Hives Verified 01/04/21 15:37 Social History Smoking Status: Never smoker ROS ROS ED Constitutional Constitutional ED: Denies chills or fever(s) Eyes Eyes: Denies blurry vision or change in vision ENT ENT ED: Denies rhinorrhea or sore throat Cardiovascular Cardiovascular: Reports chest pain; Denies racing heartbeat Respiratory/Chest Respiratory/Chest: Denies cough or dyspnea Gastrointestinal Gastrointestinal: Denies abdominal pain, nausea or vomiting Genitourinary Genitourinary ED: Denies dysuria or hematuria Musculoskeletal Musculoskeletal: Denies arthralgias or myalgias Integumentary Denies Abrasions or rash Neurologic Neurologic: Denies headache(s) or paresthesias EXAM Physical Exam Const Vital Signs: 01/04/21 15:33 01/04/21 15:43 01/04/21 16:18 Temperature 97.5 F L Temperature Source Temporal Pulse Rate 82 Respiratory Rate 16 Respiratory Effort Normal Non-Labored Respiratory Pattern Normal Blood Pressure 142/81 H Blood Pressure Mean 101 Pulse Ox 100 Oxygen Delivery Method Room Air Room Air 01/04/21 18:47 Temperature Temperature Source Pulse Rate 89 Respiratory Rate 28 H Respiratory Effort Respiratory Pattern Blood Pressure 117/63 Blood Pressure Mean 81 Pulse Ox 100 Oxygen Delivery Method Room Air Positive obese General Appearance ED: Negative for pallor Nutritional Appearance: obese HEENT Reports moist mucous membranes normocephalic Eyes PERRL and EOMs intact bilaterally Resp normal respiratory effort Effort and Inspection: respiratory distress Cardio regular rate and regular rhythm Extremity Extremity Narrative: Tenderness to palpation left posterior calf. No cords palpated. Compartments are soft. General Extremety ED: Negative for edema General Extremity: Negative for edema Neuro oriented x3 Sensorium / Orientation: awake and alert Psych mental status grossly normal Skin no rashes or lesions noted and no wounds General Skin Exam: Negative for jaundice or pallor Heart Score History: Slightly/Non-Suspicious ECG: Normal Age: </= 45 years Risk Factors: No Risk Factors Troponin: </= Normal Limit Score: 0 MDM MDM MDM Narrative Medical decision making narrative: Patient presenting with left-sided chest pain. She states she can only take tramadol for pain and this was provided. Lab work is unremarkable. Troponin is negative her 2-1/2 days of pain so I doubt that this is ACS. Chest x-ray on my interpretation shows no acute cardiopulmonary process however the radiologist does interpret this as possible infiltrate versus edema. Patient had CTA of the chest given her risk factors and history and this was negative for acute PE or dissection and does not identify infiltrate or edema. There is a small pericardial effusion of uncertain significance. On examination patient does have some reproducible left upper chest wall pain. She is counseled to continue use ibuprofen and Tylenol for this. Patient stable for discharge at this time. Impression: 1. Chest pain 2. Small pericardial effusion Lab Data Labs: Laboratory Results - last 24 hr 01/04/21 01/04/21 16:15 16:15 WBC 6.1 RBC 4.37 Hgb 12.1 Hct 36.4 L MCV 83.3 MCH 27.7 MCHC 33.2 RDW Std Deviation 41.2 RDW Coeff of Paula 13.5 Plt Count 322 MPV 9.0 Immature Gran % (Auto) 0.300 Neut % (Auto) 78.1 H Lymph % (Auto) 13.2 L [place] % (Auto) 6.9 Eos % (Auto) 1.3 Baso % (Auto) 0.2 Absolute Neuts (auto) 4.7 Absolute Lymphs (auto) 0.80 L Nucleated RBC % 0 Sodium 138 Potassium 3.9 Chloride 107 Carbon Dioxide 26.0 Anion Gap 5 BUN 10 Creatinine 0.66 Estim Creat Clear Calc 129.16 Est GFR (MDRD) Af Amer 137 Est GFR (MDRD) Non-Af 113 BUN/Creatinine Ratio 15.1 Glucose 116 H Calcium 9.0 Troponin I High Sens 7 Radiography Diagnostic Testing: Radiology Impression Chest CTA 01/04/21 16:03 IMPRESSION: 1. No central or segmental pulmonary embolism. 2. Small pericardial effusion. Electronically Signed: Jesus Gold MD ([place]oks) at 17:24 EDT , Service support , Chest X-Ray 01/04/21 16:45 IMPRESSION: Multilobar ill-defined infiltrates could represent mild edema, atelectasis or atypical/viral pneumonia. Electronically Signed: Jesus Gold MD ([place]oks) at 17:19 EDT , Service support , Discharge Plan Triage Chief Complaint: Chest Other ED Provider: Aris Estrada Dx/Rx/DC Orders Instructions: ED Chest Pain [facility] Prescriptions: No Action hydroxychloroquine 200 MG tablet 200 mg PO BID RF: 0 trazodone 100 mg tablet 100 mg PO DAILY RF: 0 norethindrone (contraceptive) [Incassia] 0.35 mg tablet 0.35 mg PO DAILY RF: 0 Referrals: PURA BOWLING [Other] Disposition Disposition: Home, Self Care Discharge Date/Time: 01/04/21 18:56
[2021-01-04 16:29] LABS: Absolute Neutrophil Count 4.7 X10^3/uL (2.0-7.7); Basophil# 0.01 X10^3/uL; Basophil% 0.2 % (0-1); Eosinophil# 0.08 X10^3/uL; Eosinophils% 1.3 % (0-5); Hematocrit 36.4 % (37-47); Hemoglobin 12.1 g/dL (12.0-15.0); Lymphocyte % 13.2 % (19-41); Mean Corp Hgb Conc 33.2 g/dL (32-36); Mean Corpuscular Hgb 27.7 pg (27.0-32.0); Mean Corpuscular Volume 83.3 fL (81-99); Monocyte# 0.42 X10^3/uL; Monocyte% 6.9 % (0-10); NRBC Flagged by Analyzer 0 % (0-5); Neutrophil # 4.72 X10^3/uL (2.7-7.7); Neutrophil % 78.1 % (47-70); Platelet Count 322 K/mm3 (150-450); RBC Distribution Width CV 13.5 % (11.6-14.6); RBC Distribution Width SD 41.2 fl (35.1-43.9); Red Blood Count 4.37 M/mm3 (4.2-5.4); White Blood Count 6.1 K/mm3 (4.4-11.0)
--- NOTE | 2021-01-04 16:45 | RAD_ITS ---
STUDY: X-RAY CHEST REASON FOR EXAM: Female, 25 years old. chest pain TECHNIQUE: AP COMPARISON: 09/26/2019 FINDINGS: EKG leads project over the chest. There are patchy interstitial and groundglass opacities in the bilateral lower lobes and left upper lobe, new. There is no demonstrated pleural abnormality. Normal size heart. Normal mediastinum and anay. Normal visualized pulmonary arteries. Normal visualized aortic arch and descending thoracic aorta. Normal visualized thoracic spine. Normal visualized ribs, clavicles, and shoulders. There is no demonstrated abnormality of the visualized soft tissue structures of the upper abdomen. RAD/Chest 1 View (Portable) IMPRESSION: Multilobar ill-defined infiltrates could represent mild edema, atelectasis or atypical/viral pneumonia. Electronically Signed: Jesus Gold MD (Brooks) at 17:19 EDT , Service support ,
[2021-01-04 16:47] LABS: Anion Gap 5 (5-15); BUN 10 mg/dL (7-18); BUN/Creat Ratio 15.1 RATIO (10-20); Chloride 107 mmol/L (98-107); Creatinine, Serum 0.66 mg/dL (0.55-1.02); EST Glomerular Filtration Rate 113 mL/min (>60); Est Glom Filt Rate - Afr Amer 137 mL/min (>60); Estimated Creatinine Clearance 129.16 ml/min; Glucose 116 mg/dL (74-106); Potassium 3.9 mmol/L (3.5-5.1); Sodium Level 138 mmol/L (136-145); Troponin-I HS 7 pg/mL (3.0-54.0)
[2021-01-04 18:47] VITALS: BP 117/63; PULSE 89; RESP 28; O2SAT 100
== END 2021-01-04 18:56 | disposition home or self-care (01) ==
PROVIDERS: Emergency Provider Student in an Organized Health Care Education/Training Program
DX: R07.9 Chest pain, unspecified (principal); I31.3 Pericardial effusion (noninflammatory); M32.9 Systemic lupus erythematosus, unspecified; Z86.711 Personal history of pulmonary embolism; Z86.718 Personal history of other venous thrombosis and embolism; Z79.899 Other long term (current) drug therapy
CPT/HCPCS: 71045; 71275; 80048; 84484; 85025; 93005; 99285; Q9967

== ENCOUNTER 2021-08-10 11:25 | Emergency (ER) | payer MEDICAID, SELFPAY ==
[2021-08-10 11:26] VITALS: BP 156/81; PULSE 104; RESP 18; TEMP 36.1; BMI 45.8
[2021-08-10 11:46] VITALS: BP 128/79; PULSE 98; RESP 22; O2SAT 100
--- NOTE | 2021-08-10 12:36 | EKG12_ITS ---
Test Reason : Blood Pressure : / mmHG Vent. Rate : 102 BPM Atrial Rate : 102 BPM P-R Int : 124 ms QRS Dur : 092 ms QT Int : 348 ms P-R-T Axes : 040 049 048 degrees QTc Int : 453 ms Sinus tachycardia Otherwise normal ECG Confirmed by HERMES JOSE, JESUS ([id number]), editor city KARYN RAZO ([id number]) on 08/12/2021 11:38:29 AM Referred By: Confirmed By:JESUS MIRZA MD
[2021-08-10 12:44] LABS: Absolute Lymphocyte Count 1.02 X10^3/uL (0.83-4.51); Absolute Neutrophil Count 4.8 X10^3/uL (2.0-7.7); Basophil# 0.01 X10^3/uL; Basophil% 0.2 % (0-1); Eosinophil# 0.05 X10^3/uL; Eosinophils% 0.8 % (0-5); Hematocrit 37.9 % (37-47); Hemoglobin 12.8 g/dL (12.0-15.0); Lymphocyte # 1.02 X10^3/ul (0.83-4.51); Lymphocyte % 16.1 % (19-41); Mean Corp Hgb Conc 33.8 g/dL (32-36); Mean Corpuscular Hgb 28.8 pg (27.0-32.0); Mean Corpuscular Volume 85.4 fL (81-99); Monocyte% 7.9 % (0-10); NRBC Flagged by Analyzer 0 % (0-5); Neutrophil # 4.75 X10^3/uL (2.7-7.7); Neutrophil % 74.7 % (47-70); Platelet Count 331 K/mm3 (150-450); RBC Distribution Width CV 13.2 % (11.6-14.6); RBC Distribution Width SD 41.3 fl (35.1-43.9); Red Blood Count 4.44 M/mm3 (4.2-5.4); White Blood Count 6.4 K/mm3 (4.4-11.0)
--- NOTE | 2021-08-10 12:55 | RAD_ITS ---
STUDY: X-RAY CHEST REASON FOR EXAM: Female, 25 years old. 3 day history of chest pain and shortness of breath. TECHNIQUE: Single AP portable view of the chest. COMPARISON: Comparison is made with prior study 01/04/2021. FINDINGS: EKG electrodes are seen. There is evidence of blunting of the left costophrenic angle with left basilar atelectasis and/or infiltrate. Normal size heart. Normal mediastinum and anay. Normal visualized pulmonary arteries. Normal visualized aortic arch and descending thoracic aorta. Normal visualized thoracic spine. Normal visualized ribs, clavicles, and shoulders. There is no demonstrated abnormality of the visualized soft tissue structures of the upper abdomen. RAD/Chest 1 View (Portable) IMPRESSION: Small left pleural effusion with left basilar atelectasis and/or infiltrate. Electronically Signed: Royal Clemens MD at 13:13 EDT ,
[2021-08-10 12:58] LABS: Anion Gap 5 (5-15); BUN 10 mg/dL (7-18); BUN/Creat Ratio 12.2 RATIO (10-20); Calcium,Total 8.8 mg/dL (8.5-10.1); Chloride 104 mmol/L (98-107); Creatinine, Serum 0.82 mg/dL (0.55-1.02); EST Glomerular Filtration Rate 88 mL/min (>60); Est Glom Filt Rate - Afr Amer 107 mL/min (>60); Glucose 95 mg/dL (74-106); Potassium 3.7 mmol/L (3.5-5.1); Sodium Level 136 mmol/L (136-145); Troponin-I HS < 3 pg/mL (3.0-54.0)
[2021-08-10 13:25] VITALS: BP 122/73; PULSE 99; RESP 22; O2SAT 98
[2021-08-10 13:33] LABS: D-Dimer Quantitative (DVT/PE) 2.85 FEU/ug/m (0.27-0.49)
--- NOTE | 2021-08-10 13:34 | CT_ITS ---
STUDY: CTA CHEST REASON FOR EXAM: Female, 25 years old. Chest pain. RADIATION DOSAGE (If Supplied By Facility): CTDIvol = ( 14.43 ) mGy, DLP = ( 895.23 ) mGycm TECHNIQUE: The examination was performed with the intravenous administration of IV 100mL Isovue-370. Post-processing of the angiographic images was performed, with multiplanar reformation and 3D reconstruction. Limited study due to the patient''s condition. Individualized dose optimization techniques were used for this CT. COMPARISON: Comparison is made with prior study dated 01/04/2021. FINDINGS: Small intraluminal filling defect in branches of the left upper lobe pulmonary artery with the pulmonary emboli. Also suspect a small embolus in branches of the right upper lobe pulmonary artery. Normal thoracic aorta and visualized great vessels. There is no demonstrated aortic dissection. There now is evidence of a small pericardial effusion. Normal mediastinum. Normal hilar regions. Normal visualized trachea and bronchi. The lungs are well expanded. Atelectasis and/or infiltrate in the left lower lobe. Normal pleura. Normal chest wall structures. Normal osseous structures. Normal visualized upper abdomen. CT/CTA Chest W/WO Contrast IMPRESSION: Small intraluminal filling defects seen in branches of the right and left upper lobe pulmonary artery. Small pericardial effusion. Increased markings at the lung bases worse on the right side. Electronically Signed: Royal Clemens MD at 14:18 EDT ,
[2021-08-10 15:31] VITALS: BP 133/90; PULSE 99; RESP 22; O2SAT 100
[2021-08-10] MEDS: HYDROmorphone 0.5 MG/0.5 ML SYRINGE IV (15:32)
[2021-08-10] MEDS: Ondansetron 4 MG/2 ML Vial IV (15:32)
--- NOTE | 2021-08-10 15:43 | ED.VIS.CHEST ---
HPI History of Present Illness Chief Complaint: Chest Pain Narrative Narrative: 25-year-old female presenting with left-sided chest pain which is sharp in nature. She has pain with deep inspiration. She states she has history of PE in the past. She is not anticoagulated. She is on oral control. Patient denies fever, chills, cough. She denies cardiac history. [facility] Medical History (Updated 08/10/21 @ 11:48 by Fortino Wolf) Fibromyalgia Lupus Rheumatoid arthritis Home Medications hydroxychloroquine 200 mg PO BID 03/22/18 [History Last Taken 08/10/21] norethindrone (contraceptive) [Incassia] 0.35 mg PO DAILY 01/04/21 [History Last Taken 08/09/21] trazodone 100 mg PO DAILY 01/04/21 [History Last Taken 08/09/21] apixaban [Eliquis DVT-PE Treat 30D Start] 5 mg PO BID #74 tab 08/10/21 [Rx Last Taken Unknown] azathioprine 50 mg PO TID 08/10/21 [History Last Taken 08/09/21] ferrous sulfate [FeroSul] 325 mg PO DAILY 08/10/21 [History Last Taken 08/09/21] Allergy/AdvReac Type Severity Reaction Status Date / Time morphine Allergy Hives Verified 01/04/21 15:37 metronidazole [From Flagyl] AdvReac Hives Verified 01/04/21 15:37 Social History Smoking Status: Never smoker ROS [facility] ED Constitutional Constitutional ED: Denies chills, fever(s) or sweats Eyes Eyes: Denies blurry vision or change in vision ENT ENT ED: Denies rhinorrhea or sore throat Cardiovascular Cardiovascular: Reports as per HPI Respiratory/Chest Respiratory/Chest: Reports dyspnea; Denies cough or sputum Gastrointestinal Gastrointestinal: Denies abdominal pain, nausea or vomiting Genitourinary Genitourinary ED: Denies dysuria or hematuria Musculoskeletal Musculoskeletal: Denies arthralgias or myalgias Integumentary Denies rash Neurologic Neurologic: Denies headache(s), paresthesias or weakness Psychiatric Psychiatric: Reports anxiety; Denies depression EXAM Physical Exam Const Vital Signs: 08/10/21 11:26 08/10/21 11:46 08/10/21 12:36 Temperature 96.9 F L Temperature Source Temporal Pulse Rate 104 H 98 Respiratory Rate 18 22 H Blood Pressure 156/81 H 128/79 H Blood Pressure Mean 106 95 Pulse Ox 100 Oxygen Delivery Method Room Air Room Air 08/10/21 13:25 08/10/21 15:31 Temperature Temperature Source Pulse Rate 99 99 Respiratory Rate 22 H 22 H Blood Pressure 122/73 H 133/90 H Blood Pressure Mean 89 104 Pulse Ox 98 100 Oxygen Delivery Method Room Air Room Air Positive obese General Appearance ED: NAD Nutritional Appearance: obese HEENT Reports moist mucous membranes normocephalic and atraumatic Eyes PERRL and EOMs intact bilaterally Cardio regular rate Rate: tachycardic GI normal to inspection, nondistended, normoactive bowel sounds Neuro oriented x3 Sensorium / Orientation: awake and alert Psych mental status grossly normal Mood & Affect: anxious Skin no rashes or lesions noted Heart Score History: Slightly/Non-Suspicious ECG: Normal Age: </= 45 years Risk Factors: 1 or 2 Risk Factors Troponin: </= Normal Limit Score: 1 MDM MDM MDM Narrative Medical decision making narrative: Patient presented with chest pain with history PE. EKG is obtained and shows a sinus tachycardia with a ventricular rate of 100 bpm without sign of ischemic change or dysrhythmia. Chest x-ray on my interpretation shows a small left pleural effusion. The radiologist agree. CBC and BMP are unremarkable. High-sensitivity troponin is less than 3 after 24 hours of pain. Coagulation studies are normal. CTA of the chest is performed which shows bilateral small upper lobe PEs. Patient was given Dilaudid but did not like receiving narcotic pain medication. She will need to be on Eliquis and the first dose was provided. I offered her narcotic pain medication for home but she states it does not work for her. I counseled her that she will need to follow-up with her primary care physician outpatient in order to be reassessed and continue her Eliquis. Patient discharged in stable condition. Impression: 1. Chest pain 2. Bilateral pulmonary emboli Lab Data Labs: Laboratory Results - last 24 hr 08/10/21 08/10/21 08/10/21 11:40 11:40 11:40 WBC 6.4 RBC 4.44 Hgb 12.8 Hct 37.9 MCV 85.4 MCH 28.8 MCHC 33.8 RDW Std Deviation 41.3 RDW Coeff of Paula 13.2 Plt Count 331 MPV 10.0 Immature Gran % (Auto) 0.300 Neut % (Auto) 74.7 H Lymph % (Auto) 16.1 L [place] % (Auto) 7.9 Eos % (Auto) 0.8 Baso % (Auto) 0.2 Absolute Neuts (auto) 4.8 Absolute Lymphs (auto) 1.02 Nucleated RBC % 0 PT 13.0 INR 1.0 D-Dimer Quant (PE/DVT) Sodium 136 Potassium 3.7 Chloride 104 Carbon Dioxide 27.0 Anion Gap 5 BUN 10 Creatinine 0.82 Estim Creat Clear Calc 107.70 Est GFR (MDRD) Af Amer 107 Est GFR (MDRD) Non-Af 88 BUN/Creatinine Ratio 12.2 Glucose 95 Calcium 8.8 Troponin I High Sens < 3 L 08/10/21 11:40 WBC RBC Hgb Hct MCV MCH MCHC RDW Std Deviation RDW Coeff of Paula Plt Count MPV Immature Gran % (Auto) Neut % (Auto) Lymph % (Auto) [place] % (Auto) Eos % (Auto) Baso % (Auto) Absolute Neuts (auto) Absolute Lymphs (auto) Nucleated RBC % PT INR D-Dimer Quant (PE/DVT) 2.85 H* Sodium Potassium Chloride Carbon Dioxide Anion Gap BUN Creatinine Estim Creat Clear Calc Est GFR (MDRD) Af Amer Est GFR (MDRD) Non-Af BUN/Creatinine Ratio Glucose Calcium Troponin I High Sens Radiography Diagnostic Testing: Clinical Impression(s) from Imaging Studies Chest X-Ray 08/10/21 12:55 IMPRESSION: Small left pleural effusion with left basilar atelectasis and/or infiltrate. Electronically Signed: Royal Clemens MD at 13:13 EDT , Chest CTA 08/10/21 13:34 IMPRESSION: Small intraluminal filling defects seen in branches of the right and left upper lobe pulmonary artery. Small pericardial effusion. Increased markings at the lung bases worse on the right side. Electronically Signed: Royal Clemens MD at 14:18 EDT , Discharge Plan Triage Chief Complaint: Chest Pain ED Provider: Aris Estrada Dx/Rx/DC Orders Instructions: Embolism Pulmonary Dc, ED Chest Pain, Noncardiac Prescriptions: New Eliquis DVT-PE Treat 30D Start 5 mg (74 tabs) tablets,dose pack 5 mg PO BID Qty: 74 RF: 0 No Action hydroxychloroquine 200 MG tablet 200 mg PO BID RF: 0 trazodone 100 mg tablet 100 mg PO DAILY RF: 0 norethindrone (contraceptive) [Incassia] 0.35 mg tablet 0.35 mg PO DAILY RF: 0 azathioprine 50 mg tablet 50 mg PO TID RF: 0 ferrous sulfate [FeroSul] 325 mg (65 mg iron) tablet 325 mg PO DAILY RF: 0 Referrals: PURA BOWLING [Other] Disposition Disposition: Home, Self Care
[2021-08-10] MEDS: APIXABAN 5 MG TABLET 10 MG PO (15:57)
[2021-08-10 19:14] VITALS: BP 126/78; PULSE 88; RESP 16; TEMP 36.9; O2SAT 98
== END 2021-08-10 19:16 | disposition home or self-care (01) ==
PROVIDERS: Emergency Provider Student in an Organized Health Care Education/Training Program; Visit Provider Student in an Organized Health Care Education/Training Program
DX: I26.99 Other pulmonary embolism without acute cor pulmonale (principal); M06.9 Rheumatoid arthritis, unspecified; J90 Pleural effusion, not elsewhere classified; M79.7 Fibromyalgia; Z79.3 Long term (current) use of hormonal contraceptives; Z79.899 Other long term (current) drug therapy; Z86.711 Personal history of pulmonary embolism
CPT/HCPCS: 71045; 71275; 80048; 84484; 85025; 85379; 85610; 93005; 96374; 96375; 99284; Q9967; A4216; J2405

== ENCOUNTER 2021-12-03 23:11 | Emergency (ER) | payer MEDICAID, SELFPAY ==
[2021-12-03 23:12] VITALS: BP 127/67; PULSE 87; RESP 16; TEMP 37; O2SAT 100; BMI 44.6
--- NOTE | 2021-12-03 23:23 | EKG12_ITS ---
Test Reason : CP Blood Pressure : / mmHG Vent. Rate : 080 BPM Atrial Rate : 080 BPM P-R Int : 134 ms QRS Dur : 096 ms QT Int : 386 ms P-R-T Axes : 049 064 044 degrees QTc Int : 445 ms Normal sinus rhythm Normal ECG Confirmed by MIKALA JOSE, MARCIN ([id number]), associate entertainment editor JABIER GALINDO ([id number]) on 12/07/2021 11:32:03 AM Referred By: TONJA Confirmed By:DESTINI BACH MD
--- NOTE | 2021-12-03 23:24 | EDS_ITS ---
HPI History of Present Illness Chief Complaint: Chest Pain Narrative Narrative: Patient presents with left-sided pleuritic chest pain that began yesterday. Of note, she states that she has 3 autoimmune disorders including rheumatoid arthritis, and I IH. Remote history includes pulmonary embolism from hormonal control. She states she was on Eliquis for 6 months, then was taken off of it and was placed on nonhormonal control. However, back in August she had chest pain on her left side that was pleuritic in nature and shortness of breath. She states she was found to have a left-sided pulmonary embolism again and has been taking Eliquis since then. She has not missed a dose. Yesterday she began having pleuritic chest pain that feels like her blood clot pain. She had been pain-free. She is concerned that the blood clot may have gotten bigger or has returned as she was pain-free since August. She denies any leg swelling. [facility] Medical History Fibromyalgia Lupus Rheumatoid arthritis Home Medications hydroxychloroquine 200 mg tablet 200 mg PO BID ARTHRITIS 03/22/18 [History Last Taken 08/10/21] norethindrone (contraceptive) 0.35 mg tablet (Incassia) 0.35 mg PO DAILY 01/04/21 [History Last Taken 08/09/21] trazodone 100 mg tablet 100 mg PO DAILY 01/04/21 [History Last Taken 08/09/21] apixaban 5 mg (74 tabs) tablets in a dose pack (Eliquis DVT-PE Treat 30D Start) 5 mg PO BID #74 tabs 08/10/21 [Rx Last Taken Unknown] azathioprine 50 mg tablet 50 mg PO TID 08/10/21 [History Last Taken 08/09/21] ferrous sulfate 325 mg (65 mg iron) tablet (FeroSul) 325 mg PO DAILY SUPPLEMENT 08/10/21 [History Last Taken 08/09/21] Allergy/AdvReac Type Severity Reaction Status Date / Time morphine Allergy Hives Verified 12/03/21 23:15 metronidazole [From Flagyl] AdvReac Hives Verified 12/03/21 23:15 Social History Smoking Status: Never smoker ROS ROS ED ROS Narrative Constitutional: No fever, no chills. HEENT: No sore throat. No neck pain. No loss of vision. No rhinorrhea. Cardiovascular: Left-sided pleuritic chest pain. No palpitations. No pedal edema. Respiratory: No cough, no shortness of breath. Abdominal: No abdominal pain. No nausea. No vomiting. Genitourinary: No dysuria. No hematuria. Musculoskeletal: No myalgias. No arthralgias. Neurologic: No headaches. No dizziness. No lightheadedness. Skin: No rash. No change in color. Psychiatric: No depression. No anxiety. EXAM Physical Exam Narrative Exam Narrative: Afebrile. Vital signs noted. HEENT: Normocephalic. Atraumatic. PERRL, EOMI. Neck soft and supple. No point tenderness or step off. Cardiovascular: Regular rate and rhythm. No murmurs, rubs, or gallops appreciated. Respiratory: No tachypnea. Lungs clear to auscultation bilaterally. Gastrointestinal: Abdomen soft, nontender, with normoactive bowel sounds. No rebound or guarding. Neurological: Awake. Alert. Nonfocal, nonlateralizing. Skin: No rash. Normal color. No pallor. Musculoskeletal: No pedal edema. Full range of motion extremities. Const Vital Signs: 12/03/21 23:12 Temperature 98.6 F Temperature Source Temporal Pulse Rate 87 Respiratory Rate 16 Blood Pressure 127/67 H Blood Pressure Mean 87 Pulse Ox 100 Oxygen Delivery Method Room Air Heart Score History: Slightly/Non-Suspicious ECG: Normal Age: </= 45 years Risk Factors: 1 or 2 Risk Factors Score: 1 MDM MDM MDM Narrative Medical decision making narrative: Chest pain work-up was pursued. My interpretation of her EKG is that it shows normal sinus rhythm at 80 bpm without ectopy or acute ST changes. No STEMI. I had discussed with the patient about receive teaching her as she has already been on anticoagulants since August. She did seem very concerned that she has another blood clot even though she has been taking her anticoagulant. She states that she has had a work-up and was not found to have a clotting disorder. I will obtain CBC, BMP, troponins, and obtain a CTA of the chest. However, at this point in time, I will sign her out to the overnight physician, Dr. Jeremiah Crowder, who will complete the work-up on her and make final disposition on this patient with left-sided pleuritic chest pain. Currently, she is in stable condition. Discharge Plan Triage Chief Complaint: Chest Pain ED Provider: Wilfrido Whitaker Dx/Rx/DC Orders Prescriptions: No Action hydroxychloroquine 200 MG tablet 200 mg PO BID trazodone 100 mg tablet 100 mg PO DAILY norethindrone (contraceptive) [Incassia] 0.35 mg tablet 0.35 mg PO DAILY azathioprine 50 mg tablet 50 mg PO TID ferrous sulfate [FeroSul] 325 mg (65 mg iron) tablet 325 mg PO DAILY Eliquis DVT-PE Treat 30D Start 5 mg (74 tabs) tablets,dose pack 5 mg PO BID Qty: 74 0RF Primary Care Provider: Care Physician,Laura Primary Referrals: NOT,DEFINED [NON-STAFF] -
[2021-12-04] MEDS: 0.9% Normal Saline 1,000 ML 1000 ML IV (01:10)
[2021-12-04 01:23] LABS: Absolute Lymphocyte Count 1.61 X10^3/uL (0.83-4.51); Absolute Neutrophil Count 3.7 X10^3/uL (2.0-7.7); Basophil# 0.02 X10^3/uL; Basophil% 0.3 % (0-1); Eosinophil# 0.09 X10^3/uL; Eosinophils% 1.6 % (0-5); Hematocrit 37.8 % (37-47); Hemoglobin 13.1 g/dL (12.0-15.0); Lymphocyte # 1.61 X10^3/ul (0.83-4.51); Lymphocyte % 27.9 % (19-41); Mean Corp Hgb Conc 34.7 g/dL (32-36); Mean Corpuscular Hgb 28.8 pg (27.0-32.0); Mean Corpuscular Volume 83.1 fL (81-99); Mean Platelet Vol. 9.2 fl (6.2-12.0); Monocyte# 0.39 X10^3/uL; Monocyte% 6.7 % (0-10); NRBC Flagged by Analyzer 0 % (0-5); Neutrophil # 3.66 X10^3/uL (2.7-7.7); Neutrophil % 63.3 % (47-70); Platelet Count 324 K/mm3 (150-450); RBC Distribution Width CV 13.2 % (11.6-14.6); Red Blood Count 4.55 M/mm3 (4.2-5.4); White Blood Count 5.8 K/mm3 (4.4-11.0)
[2021-12-04 01:48] LABS: Anion Gap 8 (5-15); BUN 16 mg/dL (7-18); BUN/Creat Ratio 17.9 RATIO (10-20); Calcium,Total 8.8 mg/dL (8.5-10.1); Chloride 111 mmol/L (98-107); EST Glomerular Filtration Rate 80 mL/min (>60); Est Glom Filt Rate - Afr Amer 96 mL/min (>60); Estimated Creatinine Clearance 97.26 ml/min; Glucose 95 mg/dL (74-106); Potassium 3.4 mmol/L (3.5-5.1); Sodium Level 139 mmol/L (136-145); Troponin-I HS (w/2H Reflex) 4 pg/mL (3.0-54.0)
[2021-12-04 03:21] LABS: Reflex Troponin-HS? (from REC) Y
[2021-12-04 03:29] VITALS: BP 126/87; PULSE 87; RESP 18; O2SAT 96
--- NOTE | 2021-12-04 23:23 | CT_ITS ---
STUDY: CTA CHEST REASON FOR EXAM: Female, 26 years old. Pleuritic Chest Pain RADIATION DOSAGE (If Supplied By Facility): CTDIvol = ( 14.77 ) mGy, DLP = ( 497.51 ) mGycm TECHNIQUE: The examination was performed with the intravenous administration of IV 100mL Isovue-370. Post-processing of the angiographic images was performed, with multiplanar reformation and 3D reconstruction. Individualized dose optimization techniques were used for this CT. COMPARISON: 08/10/2021 FINDINGS: Normal enhancement of the main pulmonary artery and right and left pulmonary arteries. Normal enhancement of the bilateral peripheral pulmonary arteries. There is no demonstrated pulmonary embolism. Normal thoracic aorta and visualized great vessels. There is no demonstrated aortic dissection. Normal heart and pericardium. Normal mediastinum. Normal hilar regions. Normal visualized trachea and bronchi. The lungs are well expanded. Normal pulmonary parenchyma. Normal pleura. Normal chest wall structures. Normal thoracic vertebral alignment. Partially visualized splenomegaly redemonstrated. CT/CTA Chest W/WO Contrast IMPRESSION: Normal CTA chest examination, without a demonstrated pulmonary embolism or arterial dissection. No acute abnormal chest finding. Electronically Signed: Darío Sanchez MD at 2:14 EDT ,
== END 2021-12-04 03:30 | disposition home or self-care (01) ==
PROVIDERS: Emergency Provider Emergency Medicine; Visit Provider Emergency Medicine
DX: R07.9 Chest pain, unspecified (principal); M06.9 Rheumatoid arthritis, unspecified; M79.7 Fibromyalgia; Z79.01 Long term (current) use of anticoagulants; Z79.899 Other long term (current) drug therapy; Z86.711 Personal history of pulmonary embolism
CPT/HCPCS: 71275; 80048; 84484; 85025; 93005; 96360; 96361; 99283; J7030; Q9967; A4216

== ENCOUNTER 2023-09-13 08:47 | Emergency (ER) | payer MEDICAID, SELFPAY ==
[2023-09-13 08:47] VITALS: BP 114/91; BP 115/79; PULSE 130; PULSE 138; RESP 22; TEMP 36.1; TEMP 36.9; O2SAT 100; BMI 48.6
[2023-09-13 09:15] VITALS: O2SAT 100
--- NOTE | 2023-09-13 09:17 | EKG12_ITS ---
Test Reason : SOB Blood Pressure : / mmHG Vent. Rate : 114 BPM Atrial Rate : 114 BPM P-R Int : 122 ms QRS Dur : 090 ms QT Int : 310 ms P-R-T Axes : 042 051 040 degrees QTc Int : 427 ms Sinus tachycardia with Premature ventricular complexes or Fusion complexes Otherwise normal ECG Confirmed by JERSON JOSE, BECCA ([id number]), newspaper editor managing KARYN RAZO ([id number]) on 09/15/2023 10:11:05 AM Referred By: Confirmed By:BECCA ARTHUR MD
--- NOTE | 2023-09-13 09:19 | ED.VIS.DYS ---
HPI History of Present Illness Chief Complaint: Shortness of Breath Detail of Chief Complaint: Hives Informant: patient Onset/Context/Timing Onset: Today and Yesterday Context: gradual Timing: Continuous Quality: Negative for Dyspnea on exertion, Orthopnea, PND or Wheezing Current Severity: Mild Maximum Severity: Mild Worsened by: Nothing Relieved by: Nothing Associated Symptoms fever; Negative for cough, rhinorrhea, post nasal drip, ear pain, sore throat, subjective, chills, sweats, clear sputum, white sputum, yellow sputum or green sputum Chest Pain: Positive for None Narrative Narrative: 27-year-old female history of fibromyalgia, lupus, rheumatoid arthritis, PE and DVT on Eliquis. She is currently on a steroid taper for a rheumatoid arthritis flare. States that she has felt short of breath since yesterday. Today developed a rash. No new or changed meds. She is on a host of medications. No prior rash. States she has had a fever as high as 100. Was seen in urgent care yesterday. They wanted her to come to the ER then. She denies any chest pain or hemoptysis. States it does not feel like a blood clot. PE Risk Factors: Positive for Prior DVT or PE; Negative for Cancer, OCP + Smoking + > 35, Recent immobilization, Recent surgery or Recent travel Prior similar symptoms: Yes Recent Illness/Hospitalization: No PFSH PFSH Medical History Fibromyalgia History of echocardiogram History of edema History of pain when walking History of steroid therapy Hx of pleurisy Low iron Lupus Migraine headache Non-smoker Pulmonary embolism Rheumatoid arthritis Shortness of breath on exertion Home Medications hydroxychloroquine 200 mg tablet 200 mg PO BID ARTHRITIS 03/22/18 [History Last Taken 08/10/21] trazodone 100 mg tablet 150 mg PO QHS 01/04/21 [History Last Taken 08/09/21] apixaban 5 mg (74 tabs) tablets in a dose pack (Eliquis DVT-PE Treat 30D Start) 5 mg PO BID #74 tabs 08/10/21 [Rx Last Taken Unknown] sumatriptan succinate 25 mg tablet (Imitrex) 25 mg PO Q2H PRN PRN migraine headache 12/04/21 [History Last Taken Unknown] albuterol 90 mcg/actuation aerosol inhaler 90 mcg inhalation PRN PRN SOB 06/30/23 [History Last Taken Unknown] azathioprine 50 mg tablet (Imuran) 150 mg PO DAILY 06/30/23 [History Last Taken Unknown] diclofenac sodium 1 % topical gel (Voltaren Arthritis Pain) 2 g topical PRN PRN pain 06/30/23 [History Last Taken Unknown] duloxetine 30 mg capsule,delayed release 30 mg PO DAILY 06/30/23 [History Last Taken Unknown] ferrous sulfate 325 mg (65 mg iron) tablet (FeroSul) 325 mg PO QODAY 06/30/23 [History Last Taken Unknown] prednisone 20 mg tablet 40 mg (2 x 20 mg) PO DAILY Allergic reaction 3 days #6 tabs 09/13/23 [Rx Last Taken Unknown] Allergy/AdvReac Type Severity Reaction Status Date / Time morphine Allergy Hives Verified 09/13/23 08:48 metronidazole [From Flagyl] AdvReac Hives Verified 09/13/23 08:48 Surgical History History of History of inferior vena caval filter placement Social History Smoking Status: Never smoker ROS ROS ED ROS Narrative Rash. Fever has 100. Shortness of breath. No chest pain. No hemoptysis. No cough. Review of Systems ROS Unobtainable: Denies due to encephalopathy Constitutional Constitutional ED: Reports fever(s); Denies chills ENT ENT ED: Denies ear pain or rhinorrhea Cardiovascular Cardiovascular: Denies chest pain Respiratory/Chest Respiratory/Chest: Reports dyspnea; Denies cough Gastrointestinal Gastrointestinal: Denies abdominal pain, constipation, diarrhea, melena, nausea or vomiting Genitourinary Genitourinary ED: Denies dysuria or hematuria Musculoskeletal Musculoskeletal: Denies arthralgias or back pain Integumentary Denies abscess or Abrasions Neurologic Neurologic: Denies headache(s) Psychiatric Psychiatric: Denies anxiety or depression Endocrine Endocrinology: Denies cold intolerance Hematologic/Lymphatic Hematologic/Lymphatic: Denies lymphadenopathy Allergic/Immunologic Allergic/Immunologic ED: Denies mouth swelling, tongue swelling or urticaria EXAM Physical Exam Narrative Exam Narrative: Well-appearing 27-year-old female. Vital signs stable she is tachycardic at 130. H EENT exam unremarkable. Posterior pharynx unremarkable. Moist mucous membranes. She is covered in red rash consistent with allergic reaction from her head to her toes. It does thaddeus. Neck nontender no lymphadenopathy. Lungs clear to auscultation bilaterally. No rales, rhonchi or wheezing. Equal symmetrical. Heart tachycardic no murmur. Chest wall and ribs nontender. Abdomen soft nontender. Moving all 4 extremities. Calves are nontender without edema or cords. Again she has a diffuse rash over her entire body. It blanches. There is no petechiae or purpura. Rash is consistent with allergic reaction. Neurologically she is awake alert no focal motor deficits. Back nontender. Const Vital Signs: 09/13/23 08:47 09/13/23 08:47 09/13/23 09:15 Temperature 97 F L 98.4 F Temperature Source Temporal Oral Pulse Rate 138 H 130 H Respiratory Rate 22 H 22 H Respiratory Effort Normal Non-Labored Short of Breath Respiratory Depth Normal Respiratory Pattern Normal Blood Pressure 115/79 114/91 H Blood Pressure Mean 91 98 Pulse Ox 100 100 Oxygen Delivery Method Room Air Room Air Room Air 09/13/23 09:28 09/13/23 09:52 Temperature 98.9 F 98.8 F Temperature Source Oral Oral Pulse Rate 122 H Respiratory Rate 29 H Respiratory Effort Respiratory Depth Respiratory Pattern Blood Pressure 141/83 H Blood Pressure Mean 102 Pulse Ox 100 Oxygen Delivery Method Room Air Positive well nourished and well developed; Negative for cachectic, contractures or unkempt General Appearance ED: well developed and NAD; Negative for unkempt, cachectic, contractures or pallor Nutritional Appearance: Negative for cachectic HEENT Reports moist mucous membranes; Denies dry mucous membranes atraumatic; Negative for trauma or tenderness Mouth ED: No dry mucous membranes Mouth: No dry mucous membranes Eyes PERRL and EOMs intact bilaterally General Eye ED: Negative for pale conjunctiva or scleral icterus Neck no lymphadenopathy, supple, no meningeal signs and no JVD General: Negative for tenderness or other Lymph Lymphatic: Negative for other Chest Wall Chest: Negative for other Resp normal respiratory effort and clear to auscultation bilaterally Effort and Inspection: Negative for pain with movement Auscultation: Negative for rales, rhonchi, wheezes or diminished lung sounds Cardio regular rhythm, S1 normal heart sound, S2 normal heart sound and no murmurs; Negative for regular rate Rate: tachycardic Rhythm: Negative for abnormal rhythm GI non-tender, non-distended and no masses Inspection: Negative for other Auscultation: normoactive bowel sounds Palpation: soft; Negative for tender, guarding or rebound tenderness present Back/Spine no CVA tenderness and normal to inspection General Back: Negative for CVA tenderness or tenderness Extremity normal to inspection Extremity Narrative: Rash. General Extremety ED: Negative for edema or tenderness General Extremity: Negative for edema Neuro oriented x3 and CN's II-XII intact bilaterally Sensorium / Orientation: alert, oriented to person, oriented to place and oriented to time; Negative for orientation impaired, confused, lethargic or stuporous Speech: speech normal Gait (Neuro): Negative for normal gait Motor Exam: strength 5/5 throughout Psych mental status grossly normal Appearance: Negative for unkempt Attitude: No agitated and No other Mood & Affect: Negative for depressed, anxious or tearful Thought Process: normal thought process Skin no wounds and skin turgor normal General Skin Exam: Negative for jaundice or pallor Lesions: no lesions Rashes: no rashes Trauma: Negative for abrasion, laceration or puncture MDM MDM MDM Narrative Medical decision making narrative: 27-year-old female with a rash will be treated with IV Solu-Medrol and IV Benadryl mostly allergic reaction. Due to the fever and shortness of breath the checks x-ray and labs will be obtained. Clinically I do not think this is a PE. She is on Eliquis. EKG will also be obtained due to her tachycardia. Repeat exam at 10:56 a.m. Patient doing well. I did retake her temperature orally on initial exam it was 98.9 and afebrile. Currently patient is doing well. Rash really has not resolved at all. She was treated with both IV Benadryl and IV Solu-Medrol. She is currently on prednisone but only like 10 mg a day she is on tapering dose. She will be placed on 40 mg for the next 3 days starting tomorrow and then resume her taper. Outpatient follow-up with her primary care physician who is in [place]. History & Record Review Discussion w/independent historian: Patient Additional record(s) reviewed:: Prior inpatient record, Prior outpatient record, Prior ED visit and Prior labs Lab Data Attestation: I reviewed the patient's lab results. Lab results narrative: CBC shows a white count 4.7. H&H 11.7 and 37.5. Platelets 281. Electrolytes show gap 5. BUN and creatinine 10 and 0.8. Glucose 94. Consistent with prior labs. Chest x-ray unremarkable. Labs: Laboratory Results - last 24 hr 09/13/23 09:05 WBC 4.7 RBC 4.69 Hgb 11.7 L Hct 37.5 MCV 80.0 L MCH 24.9 L MCHC 31.2 L RDW Std Deviation 45.1 H RDW Coeff of Paula 15.8 H Plt Count 281 MPV 10.0 Immature Gran % (Auto) 0.400 Neut % (Auto) 81.4 H Lymph % (Auto) 11.8 L Rice % (Auto) 3.2 Eos % (Auto) 2.8 Baso % (Auto) 0.4 Absolute Neuts (auto) 3.8 Absolute Lymphs (auto) 0.55 L Nucleated RBC % 0 Sodium 136 Potassium 3.6 Chloride 104 Carbon Dioxide 27.0 Anion Gap 5 BUN 10 Creatinine 0.85 Estim Creat Clear Calc 148.52 Est GFR (MDRD) Af Amer 101 Est GFR (MDRD) Non-Af 84 BUN/Creatinine Ratio 11.8 Glucose 94 Calcium 9.0 Radiography Chest X-Ray - ED: 2 View, Read by ED Physician, Heart, Lungs, Mediastinum, Bony Structures, No Acute Disease and Chronic Changes Diagnostic Testing: Clinical Impression(s) from Imaging Studies Chest X-Ray 09/13/23 09:50 IMPRESSION: Normal x-ray examination of the chest. Electronically Signed: Royal Clemens MD at 10:08 EDT , Chest x-ray, 2 views, interpreted by myself and radiologist shows no acute abnormality. Normal cardiac silhouette. Normal lung acosta. No pneumonia. Rhythm Strip Rhythm Strip: Sinus Tach Rate: 114 Ectopy: None EKG Initial EKG: Attestation: I personally reviewed and interpreted this EKG as follows: Interpretation: Sinus Rhythm, No Acute Injury Pattern and Sinus Tachycardia Comments: Sinus tachycardia 114 no acute signs of PA or ischemia. Discharge Plan Triage Chief Complaint: Shortness of Breath ED Provider: Luis Manuel Wagner Dx/Rx/DC Orders Clinical Impression: Acute allergic reaction, Rash Instructions: ED General Allergic Reactions Prescriptions: New prednisone 20 mg tablet 40 mg PO DAILY 3 Days Qty: 6 0RF No Action hydroxychloroquine 200 MG tablet 200 mg PO BID trazodone 100 mg tablet 150 mg PO QHS Eliquis DVT-PE Treat 30D Start 5 mg (74 tabs) tablets,dose pack 5 mg PO BID Qty: 74 0RF sumatriptan succinate [Imitrex] 25 mg Tablet 25 mg PO Q2H PRN PRN (Reason: migraine headache) Rx Instructions: take 1 tab at onset of headache; if no relief may repeat 1 tab after at least 2 hrs; max = 4 tabs/24 hr ferrous sulfate [FeroSul] 325 mg (65 mg iron) tablet 325 mg PO QODAY azathioprine [Imuran] 50 mg tablet 150 mg PO DAILY duloxetine 30 mg capsule,delayed release(DR/EC) 30 mg PO DAILY albuterol 90 mcg/actuation aerosol 90 mcg inhalation PRN PRN (Reason: SOB) diclofenac sodium [Voltaren Arthritis Pain] 1 % gel 2 g topical PRN PRN (Reason: pain) Primary Care Provider: Care Physician,No Primary Referrals: Care Physician,No Primary [Primary Care Provider] - Activity Restrictions/Additional Instructions: Continue your current medications. Prednisone 40 mg a day for the next 3 days starting tomorrow. Then resume your prednisone taper. Follow-up with your primary care physician to ensure you are improving. Disposition Disposition: Home, Self Care
[2023-09-13 09:27] LABS: Absolute Lymphocyte Count 0.55 X10^3/uL (0.83-4.51); Absolute Neutrophil Count 3.8 X10^3/uL (2.0-7.7); Basophil# 0.02 X10^3/uL; Basophil% 0.4 % (0-1); Eosinophil# 0.13 X10^3/uL; Eosinophils% 2.8 % (0-5); Hematocrit 37.5 % (37-47); Hemoglobin 11.7 g/dL (12.0-15.0); Lymphocyte # 0.55 X10^3/ul (0.83-4.51); Lymphocyte % 11.8 % (19-41); Mean Corp Hgb Conc 31.2 g/dL (32-36); Mean Corpuscular Hgb 24.9 pg (27.0-32.0); Monocyte# 0.15 X10^3/uL; Monocyte% 3.2 % (0-10); NRBC Flagged by Analyzer 0 % (0-5); Neutrophil # 3.79 X10^3/uL (2.7-7.7); Neutrophil % 81.4 % (47-70); POSITIVE DIFFERENTIAL YES; Platelet Count 281 K/mm3 (150-450); RBC Distribution Width CV 15.8 % (11.6-14.6); RBC Distribution Width SD 45.1 fl (35.1-43.9); Red Blood Count 4.69 M/mm3 (4.2-5.4); White Blood Count 4.7 K/mm3 (4.4-11.0)
[2023-09-13] MEDS: DiphenhydrAMINE 50 MG/ML Syringe IV (09:27)
[2023-09-13] MEDS: MethylPREDNISolone 125 MG/2 ML Vial IV (09:27)
[2023-09-13 09:28] VITALS: BP 141/83; PULSE 122; RESP 29; TEMP 37.2; O2SAT 100
[2023-09-13 09:39] LABS: Anion Gap 5 (5-15); BUN 10 mg/dL (7-18); BUN/Creat Ratio 11.8 RATIO (10-20); Chloride 104 mmol/L (98-107); Creatinine, Serum 0.85 mg/dL (0.55-1.02); EST Glomerular Filtration Rate 84 mL/min (>60); Est Glom Filt Rate - Afr Amer 101 mL/min (>60); Estimated Creatinine Clearance 148.52 ml/min; Glucose 94 mg/dL (74-106); Potassium 3.6 mmol/L (3.5-5.1); Sodium Level 136 mmol/L (136-145)
--- NOTE | 2023-09-13 09:50 | RAD_ITS ---
STUDY: X-RAY CHEST REASON FOR EXAM: Female, 27 years old. Dyspnea TECHNIQUE: PA and lateral views of the chest. COMPARISON: Comparison is made with prior study dated August 10, 2021. FINDINGS: EKG electrodes are seen. Stable mild elevation of the right hemidiaphragm. There is no demonstrated pleural abnormality. Normal size heart. Normal mediastinum and anay. Normal visualized pulmonary arteries. Normal visualized aortic arch and descending thoracic aorta. Normal visualized thoracic spine. Normal visualized ribs, clavicles, and shoulders. There is no demonstrated abnormality of the visualized soft tissue structures of the upper abdomen. RAD/Chest PA and Lateral IMPRESSION: Normal x-ray examination of the chest. Electronically Signed: Royal Clemens MD at 10:08 EDT ,
[2023-09-13 09:52] VITALS: TEMP 37.1
[2023-09-13] MEDS: Ondansetron 4 MG/2 ML Vial IV (10:56)
[2023-09-13 10:59] VITALS: BP 131/73; PULSE 109; RESP 17; O2SAT 99
[2023-09-13 11:53] VITALS: BP 138/78; PULSE 98; RESP 18; TEMP 37.2; O2SAT 99
== END 2023-09-13 11:55 | disposition home or self-care (01) ==
PROVIDERS: Emergency Provider Emergency Medicine; PCP Internal Medicine; Visit Provider Emergency Medicine
DX: T78.40XA Allergy, unspecified, initial encounter (principal); M06.9 Rheumatoid arthritis, unspecified; R21 Rash and other nonspecific skin eruption; R50.9 Fever, unspecified; R06.02 Shortness of breath; R00.0 Tachycardia, unspecified; M79.7 Fibromyalgia; Z79.01 Long term (current) use of anticoagulants; Z79.899 Other long term (current) drug therapy; Z86.711 Personal history of pulmonary embolism; Z86.718 Personal history of other venous thrombosis and embolism
CPT/HCPCS: 71046; 80048; 85025; 93005; 96374; 96375; 99283; A4216; J2405

== ENCOUNTER 2025-02-23 07:18 | Emergency (ER) | payer MEDICAID, SELFPAY ==
[2025-02-23 07:19] VITALS: BP 151/67; PULSE 101; RESP 28; TEMP 36.6; O2SAT 100; BMI 53.6
[2025-02-23] MEDS: fentaNYL 100 MCG/2 ML Ampul 50 MCG IV ×2 (07:41→08:45)
[2025-02-23 07:51] LABS: Hematocrit 37.0 % (37-47); Hemoglobin 12.5 g/dL (12.0-15.0); Immature Granulocytes Count 0.030 X10^3/uL (0.0-0.0); Mean Corp Hgb Conc 33.8 g/dL (32-36); Mean Corpuscular Volume 84.7 fL (81-99); Mean Platelet Vol. 9.0 fl (6.2-12.0); NRBC Flagged by Analyzer 0 % (0-5); Platelet Count 304 K/mm3 (150-450); RBC Distribution Width CV 14.4 % (11.6-14.6); RBC Distribution Width SD 44.4 fl (35.1-43.9); Red Blood Count 4.37 M/mm3 (4.2-5.4); White Blood Count 6.9 K/mm3 (4.4-11.0)
[2025-02-23 08:22] LABS: Anion Gap 11 (5-15); BUN 13 mg/dL (4-19); BUN/Creat Ratio 18.3 RATIO (10-20); Calcium,Total 9.0 mg/dL (7.6-11.0); Carbon Dioxide 24.5 mmol/L (21.0-32.0); Chloride 102 mmol/L (98-108); D-Dimer Quantitative (DVT/PE) 0.89 FEU/ug/m (0.27-0.49); Estimated Creatinine Clearance 188.22 ml/min (50-250); Glucose 86 mg/dL (70-99); Potassium 3.4 mmol/L (3.3-5.1)
[2025-02-23 08:24] LABS: Pro- Brain NATRIURETIC PEPTIDE < 36 pg/mL (<=450); Troponin T High Sensitivity < 6 ng/L (<=14)
[2025-02-23 09:19] VITALS: O2SAT 100
[2025-02-23 09:29] VITALS: BP 120/65; PULSE 95; RESP 20; O2SAT 99
[2025-02-23 11:00] VITALS: BP 96/74; PULSE 90; RESP 20; O2SAT 100
[2025-02-23 12:56] VITALS: BP 100/60; PULSE 82; RESP 20; TEMP 36.4; O2SAT 99
== END 2025-02-23 12:57 | disposition home or self-care (01) ==
PROVIDERS: Emergency Provider Emergency Medicine; Visit Provider Emergency Medicine
DX: R07.1 Chest pain on breathing (principal); M06.9 Rheumatoid arthritis, unspecified; J98.11 Atelectasis; F41.9 Anxiety disorder, unspecified; Z79.01 Long term (current) use of anticoagulants; Z79.899 Other long term (current) drug therapy; Z86.718 Personal history of other venous thrombosis and embolism; Z86.711 Personal history of pulmonary embolism
CPT/HCPCS: 71046; 71275; 80048; 83880; 84484; 85025; 85379; 93005; 96374; 96375; 96376; 99283; Q9967; A4216